=== PATIENT | male | born 1945 | race Caucasian/White ===

== ENCOUNTER → 2018-01-23 06:36 | Outpatient (CLI) | payer MEDICARE, OTHER, SELFPAY ==
--- NOTE | 2018-01-23 | DI.MRI.S_ITS ---
PROCEDURE: MR SHOULDER LT WO CON INDICATIONS: COMPLETE TEAR OF LEFT ROTATOR CUFF TECHNIQUE: Noncontrast oblique coronal T2 fast spin echo with fat saturation, oblique sagittal T1 spin echo and T2 fast spin echo with fat saturation, axial T1 spin echo and T2 fast spin echo with fat saturation through the shoulder. COMPARISON: [facility], , SHOULDER MINIMUM 2 VIEW LEFT, 08/21/2017, 11:57. FINDINGS: Image quality: Excellent. Rotator cuff: Rotator cuff tendon repair has been performed. There is full thickness tear of the mid supraspinatus tendon at the humeral insertion site extending to the musculotendinous junction, measuring 14 mm anteroposterior. Mild T2 signal lesion within the anterior infraspinatus and posterior supraspinatus and humeral insertion site, indicating tendinopathy. Low-grade intrasubstance fluid signal intensity within the infraspinatus tendon at the musculotendinous junction anterior and mid portions, indicating low-grade partial-thickness tearing. Small region of fluid signal intensity within the mid subscapularis tendon at the humeral insertion site. Sagittal images demonstrate mild supraspinatus muscle atrophy. Bones and bursae: No bone marrow contusions or fractures. Moderate acromioclavicular joint degeneration. The acromion demonstrates conventional anatomy, without an os acromiale. A small amount of subacromial-subdeltoid or subcoracoid bursal fluid is present. Capsule and soft tissues: Ill-defined linear high T2 signal intensity traverses the superior and posterior superior labrum. There is a small para labral cyst present posterior superiorly. The long head of the biceps tendon demonstrates normal location and morphology. The rotator interval appears normal, without fibrosis. The coracohumeral ligament is normal in thickness. IMPRESSION: 1. Full S. tearing of the mid supraspinatus tendon as described above with mild associated atrophy. 2. Low-grade partial-thickness tearing of the infraspinatus and subscapularis tendons. 3. Acromioclavicular joint osteoarthritis. 4. Subacromial bursitis. 5. Posterior superior glenoid labral tearing. Dictated by: Krzysztof Harris M.D. on 01/23/2018 at 8:33 Approved by: Krzysztof Harris M.D. on 01/23/2018 at 8:39
== END ==
PROVIDERS: Family Provider Family Medicine; PCP Family Medicine; Visit Provider Orthopaedic Surgery
DX: M75.122 Complete rotator cuff tear or rupture of left shoulder, not specified as traumatic (principal); M19.012 Primary osteoarthritis, left shoulder; M75.52 Bursitis of left shoulder; S43.432A Superior glenoid labrum lesion of left shoulder, initial encounter
CPT/HCPCS: 73221

== ENCOUNTER 2018-08-21 10:30 | Outpatient (RCR) | payer MEDICARE, OTHER, SELFPAY ==
--- NOTE | 2018-05-15 15:25 | PT.OIE ---
Current Diagnoses Impingement syndrome of left shoulder (05/15/18) Other intraoperative and postprocedural complications and disorders of the musculoskeletal system (05/15/18) Other symptoms and signs involving the musculoskeletal system (05/15/18) Weakness (05/15/18) Other reduced mobility (05/15/18) Past Medical History (Last Updated 05/15/18 @ 14:21 by Nichole Ward, PT) Rotator cuff tear, left (Acute) Provider Visit Care Team Role Provider Type Patrick Dover MD Family Provider Physician Primary Care Provider Specialty: Family Practice Address: [facility] [place], [address] Email: [email or web address] [email or web address] [email or web address] Attending Provider Physician Specialty: Orthopedic Surgery Address: [address] [place] [address], [id number] Email: [email or web address] Physical Therapy Initial Evaluation PT-OP-A Visit Information Start: 05/14/18 16:14 Freq: Status: Active Protocol: Document 05/15/18 12:47 LRN (Rec: 05/15/18 13:30 LRN [id number]) Out-Patient Physical Therapy Visit Information Visit Information Visit Type Initial Evaluation Visit Start Time 12:47 Visit Stop Time 13:39 Total Visit Minutes 52 Visit Number 07/12 Number of DIMENSIONAL INTEGRATION ENGINEER Visits 0 Evaluation Information Evaluation Date 05/15/18 PT-OP-B Current Condition Start: 05/14/18 16:14 Freq: Status: Active Protocol: Document 05/15/18 12:47 LRN (Rec: 05/15/18 13:30 LRN [id number]) Current Condition History of Current Condition Onset Date 04/26/2018 Current Complaints No significant pain, occasional with pendulum ex. History of Current Condition Pt is 2 days short of being 3 weeks status post L shoulder, arthroscopic rotator cuff repair of a full tear. The pt reports after his in office surgery he was released home the same day. He has been doing Pendulum exercises as instructed 2 times per day. He states the first few days were the worst, but now he is having very little pain. His primary pain when present is in the posterior aspect of the upper back. He indicates his pain is in the left intrascapular region. Prior Treatments and Tests None Future Testing and Treatments Planned Follow up doctor visit Jun 08, 2018. Treatment Goals Patient/Caregiver Goals Pt goal is to regain use of L arm for functional activities (dressing, cooking, driving). Return to gym activites. Prior Functional Status Baseline Function- ADL's Independent Baseline Function- Mobility Independent Baseline Function- Recreation/Hobbies Gym workouts. Current Functional Impairments (Reported) Functional Limitations- ADL's Dressing, cooking, driving, clean up. Functional Limitations- Work/School Not able to work for [employer]. Functional Limitations- Recreation/ Not able to perform gym Hobbies workouts, carpentry (nailing). Personal Factors Other Personal Factors That May Effect Pt wanting to go to [place] the Therapy/Recovery first july. PT-OP-C Subjective Start: 05/14/18 16:14 Freq: Status: Active Protocol: Document 05/15/18 12:47 LRN (Rec: 05/15/18 14:50 LRN [id number]) Patient Questionnaires Quick Dash- Upper Extremity Quick Dash UE Score 38 Quick Dash UE Impairment 20 to 39% Impaired (Score 20- 39) OP-PT Pain Assessment Pain Assessment Grid Paper Pain Assessment Grid Completed Yes Location Left Upper Posterior Back Pain Location Details Supraspinatus, Rhomboids Intensity 3 Scale Used Numeric (1 - 10) Frequency Intermittent Left Upper Shoulder Pain Location Details Subacromial Intensity 3 Scale Used Numeric (1 - 10) Frequency Intermittent Pain Aggravating Factors Changing Position Comments Pain Comments Pain with palpation and after ROM exercise. PT-OP-E Functional Tests Start: 05/14/18 16:14 Freq: Status: Active Protocol: Document 05/15/18 12:47 LRN (Rec: 05/15/18 14:50 LRN [id number]) Functional Tests Martey's Scratch Test Action 1: The subject is instructed to touch the opposite shoulder with his/her hand. This motion checks Glenohumeral adduction, internal rotation , horizontal adduction and scapular protraction Action 2: The subject is instructed to place his/her arm overhead and reach behind the neck to touch his/her upper back. This motion checks Glenohumeral abduction, external rotation and scapular upward rotation and elevation. Action 3: The subject puts his/her hand on the lower back and reaches upward as far as possible. This motion checks glenohumeral adduction, internal rotation and scapular retraction with downward rotation Action 1- Right Opposite shoulder Action 2- Right T4 Action 3- Right T10 PT-OP-F Manual Assessment Start: 05/14/18 16:14 Freq: Status: Active Protocol: Document 05/15/18 12:47 LRN (Rec: 05/15/18 14:50 LRN [id number]) Manual Assessments Other Manual Assessments Other Manual Assessments Increased muscle tone of L Upper Trapezius, Supraspinatus , & Rhomboids. PT-OP-H Neuro Start: 05/14/18 16:14 Freq: Status: Active Protocol: Document 05/15/18 12:47 LRN (Rec: 05/15/18 14:50 LRN [id number]) Sensation Evaluation Gross Sensation Gross Sensation WNL PT-OP-J Posture/Palpation/Skin Start: 05/14/18 16:14 Freq: Status: Active Protocol: Document 05/15/18 12:47 LRN (Rec: 05/15/18 14:50 LRN [id number]) Posture Evaluation Comments Posture Comments Standing: Head is level, neck is shifted left, L shoulder is low and retracted, scapula is downwardly rotated and bound to the rib cage, Skin Assessment Incisional Assessment Incision Appearance/Comments Well healed and good mobility. PT-OP-K Range of Motion Start: 05/14/18 16:14 Freq: Status: Active Protocol: Document 05/15/18 12:47 LRN (Rec: 05/15/18 14:50 LRN [id number]) Cervical Spine Range of Motion Cervical Spine Active Degrees Testing Position Sitting Extension 54 Rotation Left 60 Rotation Right 54 Lateral Flexion Left 25 Lateral Flexion Right 15 ROM Limitations Bony Restriction Comments Limited rotation limited due to L neck pain; sidebend limited due to R neck pain. Shoulder Goniometric Range of Motion Shoulder Measured in Degrees Left Passive Shoulder ROM WFL No Testing Position Supine Flexion 129 External Rotation at 0 degrees Abduction 30 Right Active Testing Position Supine Flexion 157 Abduction 180 External Rotation at 0 degrees Abduction 85 Elbow/Forearm Range of Motion Elbow/Forearm Measured in Degrees Left Active Elbow/Forearm ROM WFL No ROM Testing Position Sitting Elbow Flexion (degrees) 127 Right Active ROM Testing Position Sitting Elbow Flexion (degrees) 150 PT-OP-M Strength Start: 05/14/18 16:14 Freq: Status: Active Protocol: Document 05/15/18 12:47 LRN (Rec: 05/15/18 14:50 LRN [id number]) Shoulder Strength Shoulder Manual Muscle Testing Left Comments Deferred testing due to s/p surgery restrictions of PROM. Right Reason Not Measured WFL Comments Generally 5/5. PT-OP-Q Treatments Start: 05/14/18 16:14 Freq: Status: Active Protocol: Document 05/15/18 12:47 LRN (Rec: 05/15/18 14:50 LRN [id number]) Therapeutic Exercises Supine Exercises Shoulder ER Supine Exercise Name Passive ER stretch with arm in 0 deg's AB Side left Reps/Minutes 4' Comments Hold 10 sec's Shoulder Flex Supine Exercise Name Passive Flexion stretch Side left Reps/Minutes 4' Elbow flex Supine Exercise Name L elbow AROM Side left Reps/Minutes 10x Comments Guiding hand movement in the frontal plane. Self-Care/Home Management Treatment Education Patient Education Home Exercise Program Other Education I/S pt in active elbow flex exercise to be added to HEP. Pt to continue Pendulum ex and with spouse assist, he was allowed to do passive Shoulder ER stretch. I/S pt to have spouse come next visit for training on PROM exercises. PT-OP-R Modalities Start: 05/14/18 16:14 Freq: Status: Active Protocol: Document 05/15/18 12:47 LRN (Rec: 05/15/18 14:50 LRN [id number]) Hot Pack/Cold Pack Treatment Cold Pack Location L shoulder Patient Position Hooklying Treatment Duration (minutes) 10 Comments Extra padding due to pt without shirt on. PT-OP-T Assessment and Plan Start: 05/14/18 16:14 Freq: Status: Active Protocol: Document 05/15/18 12:47 LRN (Rec: 05/15/18 13:30 LRN [id number]) Physical Therapy Assessment Rehab Potential Rehabilitation Potential Excellent Evaluation Complexity Number of Personal Factors/Comorbidities 0 Number of Body Systems Impaired 4 or More Clinical Presentation at Evaluation Evolving Impairments Impairments Functional Activities Functional Mobility Pain ROM Soft Tissue Mobility Strength Tone Other Concerns Age Related Concerns 70+ years old. Goals Three Impairment Decreased strength L shoulder, limited to AROM until 08/17/18 . Snf Goal (LTG) Pt will be able to lift light objects to assist with cooking , and will be able to drive without pain. LTG Duration 08/17/18 Two Impairment Decreased functional mobility of L shoulder Softball Player Goal (LTG) Pt will be able to dress without assist LTG Duration 06/21/18 One Impairment Lacks appropriate HEP Snf Goal (LTG) Pt will be independent in self care HEP. LTG Duration 07/20/2018 Assessment Summary Assessment Pt is s/p arthroscopic L shoulder rotator cuff repair on 04/26/2018. He is 2 weeks and 5 days s/p surgery. He is having very little pain with his arm in a sling and doing pendulum ex's 2x/day. The pt is following directions for home care as instructed; therefore appears very compliant. He is limited with shoulder mobility due to pain as expected. He has minimal scar tissue mobility restrictions. It is expected the pt will do well with skilled physical therapy as we follow the protocol for his L shoulder rehabilitation as given. In 6 weeks the pt will be towards the end of Phase II in his rehabilitation; therefore therapy may extend to 10 weeks for the pt to achieve return of functional ability per patient goal. Physical Therapy Plan Frequency and Duration Frequency of Treatment 2x/Week Plan of Care Start Date 05/15/18 Plan of Care End Date 08/17/18 Therapeutic Interventions Therapeutic Interventions Aquatic Therapy Home Exercise Program Manual Therapy Neuromuscular Re-education Patient/Caregiver Education Self-Care/Home Management Soft Tissue Mobilization Taping Therapeutic Exercises Modalities Cold Pack/Ice Massage Electric Stimulation Hot Packs Ultrasound Next Visit Focus/Plan Next Note Type Treatment Note Next Visit Plan Educate spouse in assisting the pt in PROM for L shoulder ER and flexion for his HEP. Continue with PROM for L shoulder (out of sling) flex and ER, and begin passive IR stretch, elbow ROM and strengthening and scapular stabilization ex's with caution of protecting Supraspinatus. STM as needed and end with cryotherapy (IFES if needed) for pain management. Upright position with ex's by 07/13/18 to begin strengthening against gravity. Weight training starting per protocol.
--- NOTE | 2018-05-15 15:25 | PT.OPPOC ---
Current Diagnoses Impingement syndrome of left shoulder (05/15/18) Other intraoperative and postprocedural complications and disorders of the musculoskeletal system (05/15/18) Other symptoms and signs involving the musculoskeletal system (05/15/18) Weakness (05/15/18) Other reduced mobility (05/15/18) Provider Visit Care Team Role Provider Type Patrick Dover MD Family Provider Physician Primary Care Provider Specialty: Family Practice Address: [facility] [place], [address] Email: [email or web address] Attending Provider Physician Specialty: Orthopedic Surgery Address: [address] [place] [address], [address] Email: [email or web address] Plan Of Care PT-OP-T Assessment and Plan Start: 05/14/18 16:14 Freq: Status: Active Protocol: Document 05/15/18 12:47 LRN (Rec: 05/15/18 13:30 LRN [id number]) Physical Therapy Assessment Rehab Potential Rehabilitation Potential Excellent Evaluation Complexity Number of Personal Factors/Comorbidities 0 Number of Body Systems Impaired 4 or More Clinical Presentation at Evaluation Evolving Impairments Impairments Functional Activities Functional Mobility Pain ROM Soft Tissue Mobility Strength Tone Other Concerns Age Related Concerns 70+ years old. Goals Three Impairment Decreased strength L shoulder, limited to AROM until 08/17/18 . Halfway Goal (LTG) Pt will be able to lift light objects to assist with cooking , and will be able to drive without pain. LTG Duration 08/17/18 Two Impairment Decreased functional mobility of L shoulder Halfway Goal (LTG) Pt will be able to dress without assist LTG Duration 06/21/18 One Impairment Lacks appropriate HEP Handle Turner Goal (LTG) Pt will be independent in self care HEP. LTG Duration 07/20/2018 Assessment Summary Assessment Pt is s/p arthroscopic L shoulder rotator cuff repair on 04/26/2018. He is 2 weeks and 5 days s/p surgery. He is having very little pain with his arm in a sling and doing pendulum ex's 2x/day. The pt is following directions for home care as instructed; therefore appears very compliant. He is limited with shoulder mobility due to pain as expected. He has minimal scar tissue mobility restrictions. It is expected the pt will do well with skilled physical therapy as we follow the protocol for his L shoulder rehabilitation as given. In 6 weeks the pt will be towards the end of Phase II in his rehabilitation; therefore therapy may extend to 10 weeks for the pt to achieve return of functional ability per patient goal. Physical Therapy Plan Frequency and Duration Frequency of Treatment 2x/Week Plan of Care Start Date 05/15/18 Plan of Care End Date 08/17/18 Therapeutic Interventions Therapeutic Interventions Aquatic Therapy Home Exercise Program Manual Therapy Neuromuscular Re-education Patient/Caregiver Education Self-Care/Home Management Soft Tissue Mobilization Taping Therapeutic Exercises Modalities Cold Pack/Ice Massage Electric Stimulation Hot Packs Ultrasound Next Visit Focus/Plan Next Note Type Treatment Note Next Visit Plan Educate spouse in assisting the pt in PROM for L shoulder ER and flexion for his HEP. Continue with PROM for L shoulder (out of sling) flex and ER, and begin passive IR stretch, elbow ROM and strengthening and scapular stabilization ex's with caution of protecting Supraspinatus. STM as needed and end with cryotherapy (IFES if needed) for pain management. Upright position with ex's by 07/13/18 to begin strengthening against gravity. Weight training starting per protocol. Plan of Care Dates Plan of Care Start Date 05/15/18 Plan of Care End Date 08/17/18 Please Sign and Return: I have reviewed this Plan of Care and certify that the skilled therapy services above are required to meet the patient?s needs. Physician Signature Date Printed Name and Credentials Clinical Instructor Signature Printed Name and Credentials
--- NOTE | 2018-05-18 14:56 | PT.OTN ---
Current Diagnoses Impingement syndrome of left shoulder (05/18/18) Other intraoperative and postprocedural complications and disorders of the musculoskeletal system (05/18/18) Physical Therapy Treatment Note PT-OP-A Visit Information Start: 05/14/18 16:14 Freq: Status: Active Protocol: Document 05/18/18 12:47 LRN (Rec: 05/18/18 13:32 LRN [id number]) Out-Patient Physical Therapy Visit Information Visit Information Visit Type Treatment Note Visit Start Time 12:47 Visit Stop Time 13:44 Total Visit Minutes 53 Visit Number 2/10 Number of PATIENT CARE SECRETARY Visits 0 Evaluation Information Evaluation Date 05/15/18 PT-OP-B Current Condition Start: 05/14/18 16:14 Freq: Status: Active Protocol: Document 05/15/18 12:47 LRN (Rec: 05/15/18 13:30 LRN [id number]) Current Condition History of Current Condition Onset Date 04/26/2018 Current Complaints No significant pain, occasional with pendulum ex. History of Current Condition Pt is 2 days short of being 3 weeks status post L shoulder, arthroscopic rotator cuff repair of a full tear. The pt reports after his in office surgery he was released home the same day. He has been doing Pendulum exercises as instructed 2 times per day. He states the first few days were the worst, but now he is having very little pain. His primary pain when present is in the posterior aspect of the upper back. He indicates his pain is in the left intrascapular region. Prior Treatments and Tests None Future Testing and Treatments Planned Follow up doctor visit Jun 08, 2018. Treatment Goals Patient/Caregiver Goals Pt goal is to regain use of L arm for functional activities (dressing, cooking, driving). Return to gym activites. Prior Functional Status Baseline Function- ADL's Independent Baseline Function- Mobility Independent Baseline Function- Recreation/Hobbies Gym workouts. Current Functional Impairments (Reported) Functional Limitations- ADL's Dressing, cooking, driving, clean up. Functional Limitations- Work/School Not able to work for [employer]. Functional Limitations- Recreation/ Not able to perform gym Hobbies workouts, carpentry (nailing). Personal Factors Other Personal Factors That May Effect Pt wanting to go to [place] the Therapy/Recovery first july. PT-OP-C Subjective Start: 05/14/18 16:14 Freq: Status: Active Protocol: Document 05/18/18 12:47 LRN (Rec: 05/18/18 13:32 LRN [id number]) OP-PT Subjective Patient Comments Patient Comments R shoulder feels good. PT-OP-E Functional Tests Start: 05/14/18 16:14 Freq: Status: Active Protocol: Document 05/15/18 12:47 LRN (Rec: 05/15/18 14:50 LRN [id number]) Functional Tests Apley's Scratch Test Action 1: The subject is instructed to touch the opposite shoulder with his/her hand. This motion checks Glenohumeral adduction, internal rotation , horizontal adduction and scapular protraction Action 2: The subject is instructed to place his/her arm overhead and reach behind the neck to touch his/her upper back. This motion checks Glenohumeral abduction, external rotation and scapular upward rotation and elevation. Action 3: The subject puts his/her hand on the lower back and reaches upward as far as possible. This motion checks glenohumeral adduction, internal rotation and scapular retraction with downward rotation Action 1- Right Opposite shoulder Action 2- Right T4 Action 3- Right T10 PT-OP-F Manual Assessment Start: 05/14/18 16:14 Freq: Status: Active Protocol: Document 05/15/18 12:47 LRN (Rec: 05/15/18 14:50 LRN [id number]) Manual Assessments Other Manual Assessments Other Manual Assessments Increased muscle tone of L Upper Trapezius, Supraspinatus , & Rhomboids. PT-OP-H Neuro Start: 05/14/18 16:14 Freq: Status: Active Protocol: Document 05/15/18 12:47 LRN (Rec: 05/15/18 14:50 LRN [id number]) Sensation Evaluation Gross Sensation Gross Sensation WNL PT-OP-J Posture/Palpation/Skin Start: 05/14/18 16:14 Freq: Status: Active Protocol: Document 05/15/18 12:47 LRN (Rec: 05/15/18 14:50 LRN [id number]) Posture Evaluation Comments Posture Comments Standing: Head is level, neck is shifted left, L shoulder is low and retracted, scapula is downwardly rotated and bound to the rib cage, Skin Assessment Incisional Assessment Incision Appearance/Comments Well healed and good mobility. PT-OP-K Range of Motion Start: 05/14/18 16:14 Freq: Status: Active Protocol: Document 05/18/18 12:47 LRN (Rec: 05/18/18 14:44 LRN [id number]) Shoulder Goniometric Range of Motion Shoulder Measured in Degrees Left Passive Testing Position Supine Flexion 95 External Rotation at 0 degrees Abduction 33 PT-OP-M Strength Start: 05/14/18 16:14 Freq: Status: Active Protocol: Document 05/15/18 12:47 LRN (Rec: 05/15/18 14:50 LRN [id number]) Shoulder Strength Shoulder Manual Muscle Testing Left Comments Deferred testing due to s/p surgery restrictions of PROM. Right Reason Not Measured WFL Comments Generally 5/5. PT-OP-Q Treatments Start: 05/14/18 16:14 Freq: Status: Active Protocol: Document 05/18/18 12:47 LRN (Rec: 05/18/18 13:32 LRN [id number]) Therapeutic Exercises Supine Exercises Scapular Pinch Side bilateral Reps/Minutes 10x Elbow ext Supine Exercise Name AROM ext Side left Reps/Minutes 10x Shoulder ER Supine Exercise Name Passive ER stretch with arm in 0 deg's AB Side left Reps/Minutes 5' Comments Hold 10 sec's Shoulder Flex Supine Exercise Name Passive Flexion stretch Side left Reps/Minutes 5' Elbow flex Supine Exercise Name L elbow AROM Side left Reps/Minutes 10x Comments Guiding hand movement in the frontal plane. Standing Exercises Pendulum Side right Reps/Minutes 30x PT-OP-R Modalities Start: 05/14/18 16:14 Freq: Status: Active Protocol: Document 05/18/18 12:47 LRN (Rec: 05/15/18 14:50 LRN [id number]) Hot Pack/Cold Pack Treatment Cold Pack Location L shoulder Patient Position Hooklying Treatment Duration (minutes) 10 Comments Extra padding due to pt without shirt on. PT-OP-T Assessment and Plan Start: 05/14/18 16:14 Freq: Status: Active Protocol: Document 05/18/18 12:47 LRN (Rec: 05/18/18 13:32 LRN [id number]) Physical Therapy Assessment Assessment Summary Assessment Pt is almost 3 wks s/p RCR. Today the spouse appears to have a good understanding of how to assist pt with PROM ex' s at home. He has improved his ER slightly, but flex is decreased. Pt was initially performing his pendulum ex's actively, but now appears to have a better understanding of PROM with ex's. Physical Therapy Plan Next Visit Focus/Plan Next Note Type Treatment Note Next Visit Plan Continue with PROM for L shoulder (out of sling) flex and ER, and begin passive IR stretch, elbow ROM and strengthening and scapular stabilization ex's with caution of protecting Supraspinatus. STM as needed and end with cryotherapy (IFES if needed) for pain management. Upright position with ex's by 07/13/18 to begin strengthening against gravity. Weight training starting per protocol.
--- NOTE | 2018-05-22 13:34 | PT.OTN ---
Current Diagnoses Impingement syndrome of left shoulder (05/22/18) Other intraoperative and postprocedural complications and disorders of the musculoskeletal system (05/22/18) Physical Therapy Treatment Note PT-OP-A Visit Information Start: 05/14/18 16:14 Freq: Status: Active Protocol: Document 05/22/18 12:45 LRN (Rec: 05/22/18 13:34 LRN [id number]) Out-Patient Physical Therapy Visit Information Visit Information Visit Type Treatment Note Visit Start Time 12:45 Visit Stop Time 13:35 Total Visit Minutes 50 Visit Number 2/10 Number of TRANSFORMATION SPECIALIST Visits 0 Evaluation Information Evaluation Date 05/15/18 PT-OP-B Current Condition Start: 05/14/18 16:14 Freq: Status: Active Protocol: Document 05/15/18 12:47 LRN (Rec: 05/15/18 13:30 LRN [id number]) Current Condition History of Current Condition Onset Date 04/26/2018 Current Complaints No significant pain, occasional with pendulum ex. History of Current Condition Pt is 2 days short of being 3 weeks status post L shoulder, arthroscopic rotator cuff repair of a full tear. The pt reports after his in office surgery he was released home the same day. He has been doing Pendulum exercises as instructed 2 times per day. He states the first few days were the worst, but now he is having very little pain. His primary pain when present is in the posterior aspect of the upper back. He indicates his pain is in the left intrascapular region. Prior Treatments and Tests None Future Testing and Treatments Planned Follow up doctor visit Jun 08, 2018. Treatment Goals Patient/Caregiver Goals Pt goal is to regain use of L arm for functional activities (dressing, cooking, driving). Return to gym activites. Prior Functional Status Baseline Function- ADL's Independent Baseline Function- Mobility Independent Baseline Function- Recreation/Hobbies Gym workouts. Current Functional Impairments (Reported) Functional Limitations- ADL's Dressing, cooking, driving, clean up. Functional Limitations- Work/School Not able to work for [employer]. Functional Limitations- Recreation/ Not able to perform gym Hobbies workouts, carpentry (nailing). Personal Factors Other Personal Factors That May Effect Pt wanting to go to [place] the Therapy/Recovery first july. PT-OP-C Subjective Start: 05/14/18 16:14 Freq: Status: Active Protocol: Document 05/22/18 12:45 LRN (Rec: 05/22/18 13:34 LRN [id number]) OP-PT Subjective Patient Comments Patient Comments See again 06/04/18. A little sore today so did not do ex's. seems to know what she's doing. States everything is going well. PT-OP-E Functional Tests Start: 05/14/18 16:14 Freq: Status: Active Protocol: Document 05/15/18 12:47 LRN (Rec: 05/15/18 14:50 LRN [id number]) Functional Tests Apley's Scratch Test Action 1: The subject is instructed to touch the opposite shoulder with his/her hand. This motion checks Glenohumeral adduction, internal rotation , horizontal adduction and scapular protraction Action 2: The subject is instructed to place his/her arm overhead and reach behind the neck to touch his/her upper back. This motion checks Glenohumeral abduction, external rotation and scapular upward rotation and elevation. Action 3: The subject puts his/her hand on the lower back and reaches upward as far as possible. This motion checks glenohumeral adduction, internal rotation and scapular retraction with downward rotation Action 1- Right Opposite shoulder Action 2- Right T4 Action 3- Right T10 PT-OP-F Manual Assessment Start: 05/14/18 16:14 Freq: Status: Active Protocol: Document 05/15/18 12:47 LRN (Rec: 05/15/18 14:50 LRN [id number]) Manual Assessments Other Manual Assessments Other Manual Assessments Increased muscle tone of L Upper Trapezius, Supraspinatus , & Rhomboids. PT-OP-H Neuro Start: 05/14/18 16:14 Freq: Status: Active Protocol: Document 05/15/18 12:47 LRN (Rec: 05/15/18 14:50 LRN [id number]) Sensation Evaluation Gross Sensation Gross Sensation WNL PT-OP-J Posture/Palpation/Skin Start: 05/14/18 16:14 Freq: Status: Active Protocol: Document 05/15/18 12:47 LRN (Rec: 05/15/18 14:50 LRN [id number]) Posture Evaluation Comments Posture Comments Standing: Head is level, neck is shifted left, L shoulder is low and retracted, scapula is downwardly rotated and bound to the rib cage, Skin Assessment Incisional Assessment Incision Appearance/Comments Well healed and good mobility. PT-OP-K Range of Motion Start: 05/14/18 16:14 Freq: Status: Active Protocol: Document 05/18/18 12:47 LRN (Rec: 05/18/18 14:44 LRN [id number]) Shoulder Goniometric Range of Motion Shoulder Measured in Degrees Left Passive Testing Position Supine Flexion 95 External Rotation at 0 degrees Abduction 33 PT-OP-M Strength Start: 05/14/18 16:14 Freq: Status: Active Protocol: Document 05/15/18 12:47 LRN (Rec: 05/15/18 14:50 LRN [id number]) Shoulder Strength Shoulder Manual Muscle Testing Left Comments Deferred testing due to s/p surgery restrictions of PROM. Right Reason Not Measured WFL Comments Generally 5/5. PT-OP-Q Treatments Start: 05/14/18 16:14 Freq: Status: Active Protocol: Document 05/22/18 12:45 LRN (Rec: 05/22/18 13:34 LRN [id number]) Therapeutic Exercises Supine Exercises Scapular Pinch Side bilateral Reps/Minutes 30x Elbow ext Supine Exercise Name AROM ext Side left Reps/Minutes 30x Shoulder ER Supine Exercise Name Passive ER stretch with arm in 0 deg's AB Side left Reps/Minutes 5' Comments Hold 10 sec's Shoulder Flex Supine Exercise Name Passive Flexion stretch Side left Reps/Minutes 5' Elbow flex Supine Exercise Name L elbow AROM Side left Resistance 2 Reps/Minutes 30 Comments Guiding hand movement in the frontal plane. Sitting Exercises Forearm Sitting Exercise Name Supination/Pronation Resistance 1# Reps/Minutes 20x Standing Exercises Shoulder IR stretch Standing Exercise Name Passive Side left Equipment Used Towel Comments Long hold Pendulum Standing Exercise Name Flex, Circles CW/CCW Side right Reps/Minutes 30x Manual Therapy Treatment Soft Tissue Mobilization L Infraspinatus Body Location L Infraspinatus Mobilization Type Strumming Sustained Pressure Body Position Sitting L UT Body Location L neck/UT Mobilization Type Strumming Sustained Pressure Body Position Sitting PT-OP-R Modalities Start: 05/14/18 16:14 Freq: Status: Active Protocol: Document 05/22/18 12:45 LRN (Rec: 05/22/18 13:34 LRN [id number]) Hot Pack/Cold Pack Treatment Cold Pack Location L shoulder Patient Position Hooklying Treatment Duration (minutes) 10 Comments Extra padding due to pt without shirt on. PT-OP-T Assessment and Plan Start: 05/14/18 16:14 Freq: Status: Active Protocol: Document 05/22/18 12:45 LRN (Rec: 05/22/18 13:34 LRN [id number]) Physical Therapy Assessment Assessment Summary Assessment Pt ~4 weeks s/p RCR. Progressing well with his HEP and spouse assist. L shoulder PROM: Flex is 110 deg's, ER is 35 deg's. Physical Therapy Plan Next Visit Focus/Plan Next Note Type Treatment Note Next Visit Plan Continue with PROM for L shoulder (out of sling) flex and ER, and begin passive IR stretch, elbow ROM and strengthening and scapular stabilization ex's with caution of protecting Supraspinatus. STM as needed and end with cryotherapy (IFES if needed) for pain management. Upright position with ex's by 07/13/18 to begin strengthening against gravity. Weight training starting per protocol.
--- NOTE | 2018-05-29 13:48 | PT.OTN ---
Current Diagnoses Impingement syndrome of left shoulder (05/29/18) Other intraoperative and postprocedural complications and disorders of the musculoskeletal system (05/29/18) Physical Therapy Treatment Note PT-OP-A Visit Information Start: 05/14/18 16:14 Freq: Status: Active Protocol: Document 05/29/18 12:47 LRN (Rec: 05/29/18 13:27 LRN [id number]) Out-Patient Physical Therapy Visit Information Visit Information Visit Type Treatment Note Visit Start Time 12:47 Visit Stop Time 13:43 Total Visit Minutes 56 Visit Number 4/10 Number of STONE OPERATOR Visits 0 Evaluation Information Evaluation Date 05/15/18 PT-OP-B Current Condition Start: 05/14/18 16:14 Freq: Status: Active Protocol: Document 05/15/18 12:47 LRN (Rec: 05/15/18 13:30 LRN [id number]) Current Condition History of Current Condition Onset Date 04/26/2018 Current Complaints No significant pain, occasional with pendulum ex. History of Current Condition Pt is 2 days short of being 3 weeks status post L shoulder, arthroscopic rotator cuff repair of a full tear. The pt reports after his in office surgery he was released home the same day. He has been doing Pendulum exercises as instructed 2 times per day. He states the first few days were the worst, but now he is having very little pain. His primary pain when present is in the posterior aspect of the upper back. He indicates his pain is in the left intrascapular region. Prior Treatments and Tests None Future Testing and Treatments Planned Follow up doctor visit Jun 08, 2018. Treatment Goals Patient/Caregiver Goals Pt goal is to regain use of L arm for functional activities (dressing, cooking, driving). Return to gym activites. Prior Functional Status Baseline Function- ADL's Independent Baseline Function- Mobility Independent Baseline Function- Recreation/Hobbies Gym workouts. Current Functional Impairments (Reported) Functional Limitations- ADL's Dressing, cooking, driving, clean up. Functional Limitations- Work/School Not able to work for [employer]. Functional Limitations- Recreation/ Not able to perform gym Hobbies workouts, carpentry (nailing). Personal Factors Other Personal Factors That May Effect Pt wanting to go to [place] the Therapy/Recovery first july. PT-OP-C Subjective Start: 05/14/18 16:14 Freq: Status: Active Protocol: Document 05/29/18 12:47 LRN (Rec: 05/29/18 13:27 LRN [id number]) OP-PT Subjective Patient Comments Patient Comments All is good. PT-OP-E Functional Tests Start: 05/14/18 16:14 Freq: Status: Active Protocol: Document 05/15/18 12:47 LRN (Rec: 05/15/18 14:50 LRN [id number]) Functional Tests Apley's Scratch Test Action 1: The subject is instructed to touch the opposite shoulder with his/her hand. This motion checks Glenohumeral adduction, internal rotation , horizontal adduction and scapular protraction Action 2: The subject is instructed to place his/her arm overhead and reach behind the neck to touch his/her upper back. This motion checks Glenohumeral abduction, external rotation and scapular upward rotation and elevation. Action 3: The subject puts his/her hand on the lower back and reaches upward as far as possible. This motion checks glenohumeral adduction, internal rotation and scapular retraction with downward rotation Action 1- Right Opposite shoulder Action 2- Right T4 Action 3- Right T10 PT-OP-F Manual Assessment Start: 05/14/18 16:14 Freq: Status: Active Protocol: Document 05/15/18 12:47 LRN (Rec: 05/15/18 14:50 LRN [id number]) Manual Assessments Other Manual Assessments Other Manual Assessments Increased muscle tone of L Upper Trapezius, Supraspinatus , & Rhomboids. PT-OP-H Neuro Start: 05/14/18 16:14 Freq: Status: Active Protocol: Document 05/15/18 12:47 LRN (Rec: 05/15/18 14:50 LRN [id number]) Sensation Evaluation Gross Sensation Gross Sensation WNL PT-OP-J Posture/Palpation/Skin Start: 05/14/18 16:14 Freq: Status: Active Protocol: Document 05/15/18 12:47 LRN (Rec: 05/15/18 14:50 LRN [id number]) Posture Evaluation Comments Posture Comments Standing: Head is level, neck is shifted left, L shoulder is low and retracted, scapula is downwardly rotated and bound to the rib cage, Skin Assessment Incisional Assessment Incision Appearance/Comments Well healed and good mobility. PT-OP-K Range of Motion Start: 05/14/18 16:14 Freq: Status: Active Protocol: Document 05/29/18 12:47 LRN (Rec: 05/29/18 13:27 LRN [id number]) Shoulder Goniometric Range of Motion Shoulder Measured in Degrees Left Passive Testing Position Supine Flexion 125 External Rotation at 0 degrees Abduction 40 Elbow/Forearm Range of Motion Elbow/Forearm Measured in Degrees Left Active Elbow/Forearm ROM WFL Yes ROM Testing Position Supine PT-OP-M Strength Start: 05/14/18 16:14 Freq: Status: Active Protocol: Document 05/15/18 12:47 LRN (Rec: 05/15/18 14:50 LRN [id number]) Shoulder Strength Shoulder Manual Muscle Testing Left Comments Deferred testing due to s/p surgery restrictions of PROM. Right Reason Not Measured WFL Comments Generally 5/5. PT-OP-Q Treatments Start: 05/14/18 16:14 Freq: Status: Active Protocol: Document 05/29/18 12:47 LRN (Rec: 05/29/18 13:27 LRN [id number]) Therapeutic Exercises Supine Exercises Forearm Sup/Pron Side left Resistance 0#, 2# Reps/Minutes 15x each Scapular Pinch Side bilateral Reps/Minutes 30x Elbow ext Supine Exercise Name AROM ext Side left Resistance 0, 3# Reps/Minutes 30x, 10x respectively Comments Stopped with weight due to pt feeling like the elbow would pop Shoulder ER Supine Exercise Name Passive ER stretch with arm in 0 deg's AB Side left Reps/Minutes 5' Comments Hold 10 sec's Shoulder Flex Supine Exercise Name Passive Flexion stretch Side left Reps/Minutes 5' Elbow flex Supine Exercise Name L elbow AROM Side left Resistance 2# Reps/Minutes 30 Standing Exercises UT strengthening Standing Exercise Name Shrugs and rolls Side left Reps/Minutes Using mirror for visual feedback Intrascapular strengthening Standing Exercise Name Scapular pinches Side bilateral Reps/Minutes 30x Shoulder IR stretch Standing Exercise Name Passive Side left Equipment Used Towel Comments Long hold Pendulum Standing Exercise Name Flex, Circles CW/CCW Side right Reps/Minutes 30x Self-Care/Home Management Treatment Education Patient Education Home Exercise Program Other Education I/S pt in L shoulder shrug & circles, alternating movements . PT-OP-R Modalities Start: 05/14/18 16:14 Freq: Status: Active Protocol: Document 05/29/18 12:47 LRN (Rec: 05/29/18 13:27 LRN [id number]) Hot Pack/Cold Pack Treatment Cold Pack Location L shoulder Patient Position Hooklying Treatment Duration (minutes) 10 PT-OP-T Assessment and Plan Start: 05/14/18 16:14 Freq: Status: Active Protocol: Document 05/29/18 12:47 LRN (Rec: 05/29/18 13:27 LRN [id number]) Physical Therapy Assessment Assessment Summary Assessment Pt is ~5 weeks s/p RCR. PROM is improving (flex 120 deg's, ER 40 deg's) and elbow/forearm strength is improving. Physical Therapy Plan Frequency and Duration Frequency of Treatment 2x/Week Plan of Care Start Date 05/15/18 Plan of Care End Date 08/17/18 Next Visit Focus/Plan Next Note Type Treatment Note Next Visit Plan Continue with PROM for L shoulder (out of sling) flex and ER, and IR stretch, elbow ROM and strengthening and scapular stabilization ex's with caution of protecting Supraspinatus. STM as needed and end with cryotherapy (IFES if needed) for pain management. Upright position with ex's by 07/13/18 to begin strengthening against gravity. Weight training starting per protocol.
--- NOTE | 2018-05-31 13:43 | PT.OTN ---
Current Diagnoses Impingement syndrome of left shoulder (05/31/18) Other intraoperative and postprocedural complications and disorders of the musculoskeletal system (05/31/18) Physical Therapy Treatment Note PT-OP-A Visit Information Start: 05/14/18 16:14 Freq: Status: Active Protocol: Document 05/31/18 12:47 LRN (Rec: 05/31/18 13:33 LRN [id number]) Out-Patient Physical Therapy Visit Information Visit Information Visit Type Treatment Note Visit Start Time 12:49 Visit Stop Time 13:37 Total Visit Minutes 48 Visit Number 5/10 Number of [employer] SALES Visits 0 Evaluation Information Evaluation Date 05/15/18 PT-OP-B Current Condition Start: 05/14/18 16:14 Freq: Status: Active Protocol: Document 05/15/18 12:47 LRN (Rec: 05/15/18 13:30 LRN [id number]) Current Condition History of Current Condition Onset Date 04/26/2018 Current Complaints No significant pain, occasional with pendulum ex. History of Current Condition Pt is 2 days short of being 3 weeks status post L shoulder, arthroscopic rotator cuff repair of a full tear. The pt reports after his in office surgery he was released home the same day. He has been doing Pendulum exercises as instructed 2 times per day. He states the first few days were the worst, but now he is having very little pain. His primary pain when present is in the posterior aspect of the upper back. He indicates his pain is in the left intrascapular region. Prior Treatments and Tests None Future Testing and Treatments Planned Follow up doctor visit Jun 08, 2018. Treatment Goals Patient/Caregiver Goals Pt goal is to regain use of L arm for functional activities (dressing, cooking, driving). Return to gym activites. Prior Functional Status Baseline Function- ADL's Independent Baseline Function- Mobility Independent Baseline Function- Recreation/Hobbies Gym workouts. Current Functional Impairments (Reported) Functional Limitations- ADL's Dressing, cooking, driving, clean up. Functional Limitations- Work/School Not able to work for [employer]. Functional Limitations- Recreation/ Not able to perform gym Hobbies workouts, carpentry (nailing). Personal Factors Other Personal Factors That May Effect Pt wanting to go to [place] the Therapy/Recovery first july. PT-OP-C Subjective Start: 05/14/18 16:14 Freq: Status: Active Protocol: Document 05/31/18 12:47 LRN (Rec: 05/31/18 13:33 LRN [id number]) OP-PT Subjective Patient Comments Patient Comments Would like arm to come out of sling. MD visit is next . 06/04/18. PT-OP-E Functional Tests Start: 05/14/18 16:14 Freq: Status: Active Protocol: Document 05/15/18 12:47 LRN (Rec: 05/15/18 14:50 LRN [id number]) Functional Tests Apley's Scratch Test Action 1: The subject is instructed to touch the opposite shoulder with his/her hand. This motion checks Glenohumeral adduction, internal rotation , horizontal adduction and scapular protraction Action 2: The subject is instructed to place his/her arm overhead and reach behind the neck to touch his/her upper back. This motion checks Glenohumeral abduction, external rotation and scapular upward rotation and elevation. Action 3: The subject puts his/her hand on the lower back and reaches upward as far as possible. This motion checks glenohumeral adduction, internal rotation and scapular retraction with downward rotation Action 1- Right Opposite shoulder Action 2- Right T4 Action 3- Right T10 PT-OP-F Manual Assessment Start: 05/14/18 16:14 Freq: Status: Active Protocol: Document 05/15/18 12:47 LRN (Rec: 05/15/18 14:50 LRN [id number]) Manual Assessments Other Manual Assessments Other Manual Assessments Increased muscle tone of L Upper Trapezius, Supraspinatus , & Rhomboids. PT-OP-H Neuro Start: 05/14/18 16:14 Freq: Status: Active Protocol: Document 05/15/18 12:47 LRN (Rec: 05/15/18 14:50 LRN [id number]) Sensation Evaluation Gross Sensation Gross Sensation WNL PT-OP-J Posture/Palpation/Skin Start: 05/14/18 16:14 Freq: Status: Active Protocol: Document 05/15/18 12:47 LRN (Rec: 05/15/18 14:50 LRN [id number]) Posture Evaluation Comments Posture Comments Standing: Head is level, neck is shifted left, L shoulder is low and retracted, scapula is downwardly rotated and bound to the rib cage, Skin Assessment Incisional Assessment Incision Appearance/Comments Well healed and good mobility. PT-OP-K Range of Motion Start: 05/14/18 16:14 Freq: Status: Active Protocol: Document 05/31/18 12:47 LRN (Rec: 05/31/18 13:33 LRN [id number]) Shoulder Goniometric Range of Motion Shoulder Measured in Degrees Left Passive Testing Position Supine Flexion 140 External Rotation at 0 degrees Abduction 60 PT-OP-M Strength Start: 05/14/18 16:14 Freq: Status: Active Protocol: Document 05/15/18 12:47 LRN (Rec: 05/15/18 14:50 LRN [id number]) Shoulder Strength Shoulder Manual Muscle Testing Left Comments Deferred testing due to s/p surgery restrictions of PROM. Right Reason Not Measured WFL Comments Generally 5/5. PT-OP-Q Treatments Start: 05/14/18 16:14 Freq: Status: Active Protocol: Document 05/31/18 12:47 LRN (Rec: 05/31/18 13:33 LRN [id number]) Therapeutic Exercises Supine Exercises Forearm Sup/Pron Side left Resistance 2# Reps/Minutes 15x2 each Scapular Pinch Side bilateral Reps/Minutes 30x Elbow ext Supine Exercise Name AROM ext Side left Resistance 3# Reps/Minutes 10x3 Shoulder ER Supine Exercise Name Passive ER stretch with arm in 0 deg's AB Side left Reps/Minutes 5' Comments Hold 10 sec's Shoulder Flex Supine Exercise Name Passive Flexion stretch Side left Reps/Minutes 5' Elbow flex Supine Exercise Name L elbow AROM Side left Resistance 0# 1#,2# Reps/Minutes 10 each Standing Exercises UT strengthening Standing Exercise Name Shrugs and rolls Side left Reps/Minutes Using mirror for visual feedback Intrascapular strengthening Standing Exercise Name Scapular pinches Side bilateral Reps/Minutes 30x Shoulder IR stretch Standing Exercise Name Passive Side left Equipment Used Towel Comments Long hold Pendulum Standing Exercise Name Flex, Circles CW/CCW Side right Reps/Minutes 30x PT-OP-R Modalities Start: 05/14/18 16:14 Freq: Status: Active Protocol: Document 05/31/18 12:47 LRN (Rec: 05/31/18 13:34 LRN [id number]) Hot Pack/Cold Pack Treatment Cold Pack Location L shoulder Patient Position Hooklying Treatment Duration (minutes) 10 PT-OP-T Assessment and Plan Start: 05/14/18 16:14 Freq: Status: Active Protocol: Document 05/31/18 12:47 LRN (Rec: 05/31/18 13:33 LRN [id number]) Physical Therapy Assessment Assessment Summary Assessment Pt is 5 weeks s/p RCR, PROM cont's to improve (flex 140 deg's, ER 60 ded's). Pt to see MD 06/04/18 and will verify if he can progress faster than protocol or if he is to stay PROM until 06/07/18. Pt denies soft tissue discomfort. Physical Therapy Plan Frequency and Duration Plan of Care Start Date 05/15/18 Plan of Care End Date 08/17/18 Next Visit Focus/Plan Next Note Type Treatment Note Next Visit Plan Continue with PROM for L shoulder (out of sling) flex and ER, and IR stretch, elbow ROM and strengthening and scapular stabilization ex's with caution of protecting Supraspinatus. STM as needed and end with cryotherapy (IFES if needed) for pain management. Upright position with ex's by 07/13/18 to begin strengthening against gravity. Weight training starting per protocol.
--- NOTE | 2018-06-05 14:05 | PT.OTN ---
Current Diagnoses Impingement syndrome of left shoulder (06/05/18) Other intraoperative and postprocedural complications and disorders of the musculoskeletal system (06/05/18) Physical Therapy Treatment Note PT-OP-A Visit Information Start: 05/14/18 16:14 Freq: Status: Active Protocol: Document 06/05/18 12:46 LRN (Rec: 06/05/18 13:51 LRN [id number]) Out-Patient Physical Therapy Visit Information Visit Information Visit Type Treatment Note Visit Start Time 12:46 Visit Stop Time 13:40 Total Visit Minutes 54 Visit Number 6/10 Number of TRANSFORMER REPAIRER Visits 0 Evaluation Information Evaluation Date 05/15/18 PT-OP-B Current Condition Start: 05/14/18 16:14 Freq: Status: Active Protocol: Document 05/15/18 12:47 LRN (Rec: 05/15/18 13:30 LRN [id number]) Current Condition History of Current Condition Onset Date 04/26/2018 Current Complaints No significant pain, occasional with pendulum ex. History of Current Condition Pt is 2 days short of being 3 weeks status post L shoulder, arthroscopic rotator cuff repair of a full tear. The pt reports after his in office surgery he was released home the same day. He has been doing Pendulum exercises as instructed 2 times per day. He states the first few days were the worst, but now he is having very little pain. His primary pain when present is in the posterior aspect of the upper back. He indicates his pain is in the left intrascapular region. Prior Treatments and Tests None Future Testing and Treatments Planned Follow up doctor visit Jun 08, 2018. Treatment Goals Patient/Caregiver Goals Pt goal is to regain use of L arm for functional activities (dressing, cooking, driving). Return to gym activites. Prior Functional Status Baseline Function- ADL's Independent Baseline Function- Mobility Independent Baseline Function- Recreation/Hobbies Gym workouts. Current Functional Impairments (Reported) Functional Limitations- ADL's Dressing, cooking, driving, clean up. Functional Limitations- Work/School Not able to work for [employer]. Functional Limitations- Recreation/ Not able to perform gym Hobbies workouts, carpentry (nailing). Personal Factors Other Personal Factors That May Effect Pt wanting to go to [place] the Therapy/Recovery first july. PT-OP-C Subjective Start: 05/14/18 16:14 Freq: Status: Active Protocol: Document 06/05/18 12:46 LRN (Rec: 06/05/18 13:51 LRN [id number]) OP-PT Subjective Patient Comments Patient Comments MD visit this morning, MD says I can go to the next phase, and he doesn't have to wear the sling anymore. PT-OP-E Functional Tests Start: 05/14/18 16:14 Freq: Status: Active Protocol: Document 05/15/18 12:47 LRN (Rec: 05/15/18 14:50 LRN [id number]) Functional Tests Apley's Scratch Test Action 1: The subject is instructed to touch the opposite shoulder with his/her hand. This motion checks Glenohumeral adduction, internal rotation , horizontal adduction and scapular protraction Action 2: The subject is instructed to place his/her arm overhead and reach behind the neck to touch his/her upper back. This motion checks Glenohumeral abduction, external rotation and scapular upward rotation and elevation. Action 3: The subject puts his/her hand on the lower back and reaches upward as far as possible. This motion checks glenohumeral adduction, internal rotation and scapular retraction with downward rotation Action 1- Right Opposite shoulder Action 2- Right T4 Action 3- Right T10 PT-OP-F Manual Assessment Start: 05/14/18 16:14 Freq: Status: Active Protocol: Document 05/15/18 12:47 LRN (Rec: 05/15/18 14:50 LRN [id number]) Manual Assessments Other Manual Assessments Other Manual Assessments Increased muscle tone of L Upper Trapezius, Supraspinatus , & Rhomboids. PT-OP-H Neuro Start: 05/14/18 16:14 Freq: Status: Active Protocol: Document 05/15/18 12:47 LRN (Rec: 05/15/18 14:50 LRN [id number]) Sensation Evaluation Gross Sensation Gross Sensation WNL PT-OP-J Posture/Palpation/Skin Start: 05/14/18 16:14 Freq: Status: Active Protocol: Document 05/15/18 12:47 LRN (Rec: 05/15/18 14:50 LRN [id number]) Posture Evaluation Comments Posture Comments Standing: Head is level, neck is shifted left, L shoulder is low and retracted, scapula is downwardly rotated and bound to the rib cage, Skin Assessment Incisional Assessment Incision Appearance/Comments Well healed and good mobility. PT-OP-K Range of Motion Start: 05/14/18 16:14 Freq: Status: Active Protocol: Document 06/05/18 12:46 LRN (Rec: 06/05/18 13:51 LRN [id number]) Shoulder Goniometric Range of Motion Shoulder Measured in Degrees Left Active Testing Position Supine Flexion 150 Horizontal Adduction 18 External Rotation at 90 degrees 60 Abduction Internal Rotation 50 Internal Rotation Behind Back (text) L5 Left Passive Testing Position Supine Flexion 144 Abduction 90 Horizontal Adduction 18 External Rotation at 90 degrees 70 Abduction External Rotation at 0 degrees Abduction 67 Internal Rotation 54 Right Active Horizontal Adduction 43 PT-OP-M Strength Start: 05/14/18 16:14 Freq: Status: Active Protocol: Document 05/15/18 12:47 LRN (Rec: 05/15/18 14:50 LRN [id number]) Shoulder Strength Shoulder Manual Muscle Testing Left Comments Deferred testing due to s/p surgery restrictions of PROM. Right Reason Not Measured WFL Comments Generally 5/5. PT-OP-Q Treatments Start: 05/14/18 16:14 Freq: Status: Active Protocol: Document 06/05/18 12:46 LRN (Rec: 06/05/18 13:51 LRN [id number]) Therapeutic Exercises Supine Exercises Elbow ext Supine Exercise Name AROM ext Side left Resistance 0# Reps/Minutes 10x3 Comments Unsupported for 1st time Supine & in standimg Shoulder ER Supine Exercise Name Passive/Active ER stretch with arm in 0 deg's AB Side left Reps/Minutes 6' Comments Hold 10 sec's Shoulder Flex Supine Exercise Name Passive/Active Flexion stretch Side left Reps/Minutes 6' Elbow flex Supine Exercise Name L elbow AROM Side left Resistance 1#,2# Reps/Minutes 15 each Comments Supine & Sit Standing Exercises Shoulder Depression Side bilateral Comments Physical cuing assist needed. UT strengthening Standing Exercise Name Shrugs and rolls Side left Reps/Minutes Using mirror for visual feedback Intrascapular strengthening Standing Exercise Name Scapular pinches Side left Resistance Lev 2 T-Band Reps/Minutes 4 Shoulder IR stretch Standing Exercise Name Active Assist Side left Pendulum Standing Exercise Name Warm up Reps/Minutes 3' Self-Care/Home Management Treatment Education Patient Education Home Exercise Program Activities Self-Care/Home Management Activities I/S pt in chest press, shoulder flexion and windshield wipe AROM. PT-OP-R Modalities Start: 05/14/18 16:14 Freq: Status: Active Protocol: Document 06/05/18 12:46 LRN (Rec: 06/05/18 13:51 LRN [id number]) Hot Pack/Cold Pack Treatment Cold Pack Location L shoulder Patient Position Hooklying Treatment Duration (minutes) 10 PT-OP-T Assessment and Plan Start: 05/14/18 16:14 Freq: Status: Active Protocol: Document 06/05/18 12:46 LRN (Rec: 06/05/18 13:51 LRN [id number]) Physical Therapy Assessment Goals Three Impairment Decreased strength L shoulder, limited to AROM until 08/17/18 . Nursing Home Goal (LTG) Pt will be able to lift light objects to assist with cooking , and will be able to drive without pain. LTG Duration 08/17/18 Two Impairment Decreased functional mobility of L shoulder Nursing Home Goal (LTG) Pt will be able to dress without assist LTG Duration 06/21/18 One Impairment Lacks appropriate HEP Caption Writer Goal (LTG) Pt will be independent in self care HEP. LTG Duration 07/20/2018 Progress Towards Goals Progress Towards Goals Progressing Toward Goals Assessment Summary Assessment Pt is ~5-1/2 weeks s/p RCR. Pt seen by MD with positive response for pt's progress. Pt is able to perform AROM of L shoulder flex, ER/IR, and able to reach behind his back without assist and without discomfort. PROM of L shoulder has improved with flex/ER (@0 deg's AB). Pt demonstrates PROM of L arm at 90 deg's AB without pain. Physical Therapy Plan Frequency and Duration Frequency of Treatment 2x/Week Plan of Care Start Date 05/15/18 Plan of Care End Date 08/17/18 Next Visit Focus/Plan Next Note Type Treatment Note Next Visit Plan Continue progressing with Phase II per protocol per MD direction. Continue with PROM for L shoulder (out of sling) flex and ER, and IR stretch, elbow ROM and strengthening and scapular stabilization ex' s with caution of protecting Supraspinatus. STM as needed and end with cryotherapy (IFES if needed) for pain management. Upright position to begin strengthening by 07/13 against gravity. Weight training starting 08/17/18 per protocol.
--- NOTE | 2018-06-12 13:39 | PT.OTN ---
Current Diagnoses Impingement syndrome of left shoulder (06/12/18) Other intraoperative and postprocedural complications and disorders of the musculoskeletal system (06/12/18) Physical Therapy Treatment Note PT-OP-A Visit Information Start: 05/14/18 16:14 Freq: Status: Active Protocol: Document 06/12/18 12:48 LRN (Rec: 06/12/18 13:37 LRN [id number]) Out-Patient Physical Therapy Visit Information Visit Information Visit Type Treatment Note Visit Start Time 12:48 Visit Stop Time 13:40 Total Visit Minutes 52 Visit Number 01/09 Number of STOCK BLENDER Visits 0 Evaluation Information Evaluation Date 05/15/18 PT-OP-B Current Condition Start: 05/14/18 16:14 Freq: Status: Active Protocol: Document 05/15/18 12:47 LRN (Rec: 05/15/18 13:30 LRN [id number]) Current Condition History of Current Condition Onset Date 04/26/2018 Current Complaints No significant pain, occasional with pendulum ex. History of Current Condition Pt is 2 days short of being 3 weeks status post L shoulder, arthroscopic rotator cuff repair of a full tear. The pt reports after his in office surgery he was released home the same day. He has been doing Pendulum exercises as instructed 2 times per day. He states the first few days were the worst, but now he is having very little pain. His primary pain when present is in the posterior aspect of the upper back. He indicates his pain is in the left intrascapular region. Prior Treatments and Tests None Future Testing and Treatments Planned Follow up doctor visit Jun 08, 2018. Treatment Goals Patient/Caregiver Goals Pt goal is to regain use of L arm for functional activities (dressing, cooking, driving). Return to gym activites. Prior Functional Status Baseline Function- ADL's Independent Baseline Function- Mobility Independent Baseline Function- Recreation/Hobbies Gym workouts. Current Functional Impairments (Reported) Functional Limitations- ADL's Dressing, cooking, driving, clean up. Functional Limitations- Work/School Not able to work for [employer]. Functional Limitations- Recreation/ Not able to perform gym Hobbies workouts, carpentry (nailing). Personal Factors Other Personal Factors That May Effect Pt wanting to go to [place] the Therapy/Recovery first july. PT-OP-C Subjective Start: 05/14/18 16:14 Freq: Status: Active Protocol: Document 06/12/18 12:48 LRN (Rec: 06/12/18 13:37 LRN [id number]) OP-PT Subjective Patient Comments Patient Comments Putting on socks and can get dressed easier. Shoulder was sore after the last session for a day. Feels he can do ex 's at home and prefers therapy 1x/week until resistive strengthening is started. Going to [place] 07/05/18 for 3 weeks. Will see MD on . PT-OP-E Functional Tests Start: 05/14/18 16:14 Freq: Status: Active Protocol: Document 05/15/18 12:47 LRN (Rec: 05/15/18 14:50 LRN [id number]) Functional Tests Apley's Scratch Test Action 1: The subject is instructed to touch the opposite shoulder with his/her hand. This motion checks Glenohumeral adduction, internal rotation , horizontal adduction and scapular protraction Action 2: The subject is instructed to place his/her arm overhead and reach behind the neck to touch his/her upper back. This motion checks Glenohumeral abduction, external rotation and scapular upward rotation and elevation. Action 3: The subject puts his/her hand on the lower back and reaches upward as far as possible. This motion checks glenohumeral adduction, internal rotation and scapular retraction with downward rotation Action 1- Right Opposite shoulder Action 2- Right T4 Action 3- Right T10 PT-OP-F Manual Assessment Start: 05/14/18 16:14 Freq: Status: Active Protocol: Document 05/15/18 12:47 LRN (Rec: 05/15/18 14:50 LRN [id number]) Manual Assessments Other Manual Assessments Other Manual Assessments Increased muscle tone of L Upper Trapezius, Supraspinatus , & Rhomboids. PT-OP-H Neuro Start: 05/14/18 16:14 Freq: Status: Active Protocol: Document 05/15/18 12:47 LRN (Rec: 05/15/18 14:50 LRN [id number]) Sensation Evaluation Gross Sensation Gross Sensation WNL PT-OP-J Posture/Palpation/Skin Start: 05/14/18 16:14 Freq: Status: Active Protocol: Document 05/15/18 12:47 LRN (Rec: 05/15/18 14:50 LRN [id number]) Posture Evaluation Comments Posture Comments Standing: Head is level, neck is shifted left, L shoulder is low and retracted, scapula is downwardly rotated and bound to the rib cage, Skin Assessment Incisional Assessment Incision Appearance/Comments Well healed and good mobility. PT-OP-K Range of Motion Start: 05/14/18 16:14 Freq: Status: Active Protocol: Document 06/12/18 12:48 LRN (Rec: 06/12/18 13:37 LRN [id number]) Shoulder Goniometric Range of Motion Shoulder Measured in Degrees Left Active External Rotation at 90 degrees 70 Abduction Left Passive External Rotation at 90 degrees 70 Abduction PT-OP-M Strength Start: 05/14/18 16:14 Freq: Status: Active Protocol: Document 05/15/18 12:47 LRN (Rec: 05/15/18 14:50 LRN [id number]) Shoulder Strength Shoulder Manual Muscle Testing Left Comments Deferred testing due to s/p surgery restrictions of PROM. Right Reason Not Measured WFL Comments Generally 5/5. PT-OP-Q Treatments Start: 05/14/18 16:14 Freq: Status: Active Protocol: Document 06/12/18 12:48 LRN (Rec: 06/12/18 13:37 LRN [id number]) Therapeutic Exercises Supine Exercises Rhythmic stabilization Supine Exercise Name Arm at 90 deg's flex for rhythmic stab Side left Reps/Minutes 20x PNF patterns Supine Exercise Name D1, D2 Side left Reps/Minutes 10 x each Shoulder ER Supine Exercise Name Passive/Active ER stretch with arm in 0 deg's AB Side left Reps/Minutes 6' Comments Hold 10 sec's Shoulder Flex Supine Exercise Name Passive/Active Flexion stretch Side left Reps/Minutes 6' Comments Ex done in supine and at 20 deg's elevated body. Elbow flex Supine Exercise Name L elbow AROM Side left Resistance 3# Reps/Minutes 10 x 3 Comments Supine & Sit Sidelying Exercises Capsular stretch Sidelying Exercise Name Sleeper stretch Side left Comments in 45, 90 deg's AB Standing Exercises Elbow curls Standing Exercise Name Biceps curls Side bilateral Resistance 3# Reps/Minutes 10 x 3 Shoulder ext Side bilateral Reps/Minutes 10 x 3 Comments Painfree range UT strengthening Standing Exercise Name Shrugs and rolls Side left Reps/Minutes Using mirror for visual feedback Intrascapular strengthening Standing Exercise Name Scapular pinches Side bilateral Reps/Minutes 4 Shoulder IR stretch Standing Exercise Name Active Assist Side left Pendulum Standing Exercise Name Warm up Reps/Minutes 3' Self-Care/Home Management Treatment Education Patient Education Home Exercise Program Activities Self-Care/Home Management Activities Issued and reviewed capsular stretch. PT-OP-R Modalities Start: 05/14/18 16:14 Freq: Status: Active Protocol: Document 06/05/18 12:46 LRN (Rec: 06/05/18 13:51 LRN [id number]) Hot Pack/Cold Pack Treatment Cold Pack Location L shoulder Patient Position Hooklying Treatment Duration (minutes) 10 PT-OP-T Assessment and Plan Start: 05/14/18 16:14 Freq: Status: Active Protocol: Document 06/12/18 12:48 LRN (Rec: 06/12/18 13:37 LRN [id number]) Physical Therapy Assessment Assessment Summary Assessment Pt is 7 weeks s/p R RCR. He is progressing steadily with no lasting pain. ROM is good for shoulder ER. Flex is more limited. Pt is to progress to upright in 3 weeks, no resistance. Physical Therapy Plan Next Visit Focus/Plan Next Note Type Treatment Note Next Visit Plan Continue progressing with Phase II per protocol per MD direction. Continue with PROM for L shoulder (out of sling) flex and ER, and IR stretch, elbow ROM and strengthening and scapular stabilization ex' s with caution of protecting Supraspinatus. STM as needed and end with cryotherapy (IFES if needed) for pain management. Upright position to begin strengthening by 07/13 against gravity. Weight training starting 08/17/18 per protocol.
--- NOTE | 2018-06-12 13:41 | PT.OTN ---
Current Diagnoses Impingement syndrome of left shoulder (06/12/18) Other intraoperative and postprocedural complications and disorders of the musculoskeletal system (06/12/18) Physical Therapy Treatment Note PT-OP-A Visit Information Start: 05/14/18 16:14 Freq: Status: Active Protocol: Document 06/12/18 12:48 LRN (Rec: 06/12/18 13:37 LRN [id number]) Out-Patient Physical Therapy Visit Information Visit Information Visit Type Treatment Note Visit Start Time 12:48 Visit Stop Time 13:40 Total Visit Minutes 52 Visit Number 01/09 Number of CAPTAIN FISHING VESSEL Visits 0 Evaluation Information Evaluation Date 05/15/18 PT-OP-B Current Condition Start: 05/14/18 16:14 Freq: Status: Active Protocol: Document 05/15/18 12:47 LRN (Rec: 05/15/18 13:30 LRN [id number]) Current Condition History of Current Condition Onset Date 04/26/2018 Current Complaints No significant pain, occasional with pendulum ex. History of Current Condition Pt is 2 days short of being 3 weeks status post L shoulder, arthroscopic rotator cuff repair of a full tear. The pt reports after his in office surgery he was released home the same day. He has been doing Pendulum exercises as instructed 2 times per day. He states the first few days were the worst, but now he is having very little pain. His primary pain when present is in the posterior aspect of the upper back. He indicates his pain is in the left intrascapular region. Prior Treatments and Tests None Future Testing and Treatments Planned Follow up doctor visit Jun 08, 2018. Treatment Goals Patient/Caregiver Goals Pt goal is to regain use of L arm for functional activities (dressing, cooking, driving). Return to gym activites. Prior Functional Status Baseline Function- ADL's Independent Baseline Function- Mobility Independent Baseline Function- Recreation/Hobbies Gym workouts. Current Functional Impairments (Reported) Functional Limitations- ADL's Dressing, cooking, driving, clean up. Functional Limitations- Work/School Not able to work for [employer]. Functional Limitations- Recreation/ Not able to perform gym Hobbies workouts, carpentry (nailing). Personal Factors Other Personal Factors That May Effect Pt wanting to go to [place] the Therapy/Recovery first july. PT-OP-C Subjective Start: 05/14/18 16:14 Freq: Status: Active Protocol: Document 06/12/18 12:48 LRN (Rec: 06/12/18 13:37 LRN [id number]) OP-PT Subjective Patient Comments Patient Comments Putting on socks and can get dressed easier. Shoulder was sore after the last session for a day. Feels he can do ex 's at home and prefers therapy 1x/week until resistive strengthening is started. Going to [place] 07/05/18 for 3 weeks. Will see MD on . PT-OP-E Functional Tests Start: 05/14/18 16:14 Freq: Status: Active Protocol: Document 05/15/18 12:47 LRN (Rec: 05/15/18 14:50 LRN [id number]) Functional Tests Apley's Scratch Test Action 1: The subject is instructed to touch the opposite shoulder with his/her hand. This motion checks Glenohumeral adduction, internal rotation , horizontal adduction and scapular protraction Action 2: The subject is instructed to place his/her arm overhead and reach behind the neck to touch his/her upper back. This motion checks Glenohumeral abduction, external rotation and scapular upward rotation and elevation. Action 3: The subject puts his/her hand on the lower back and reaches upward as far as possible. This motion checks glenohumeral adduction, internal rotation and scapular retraction with downward rotation Action 1- Right Opposite shoulder Action 2- Right T4 Action 3- Right T10 PT-OP-F Manual Assessment Start: 05/14/18 16:14 Freq: Status: Active Protocol: Document 05/15/18 12:47 LRN (Rec: 05/15/18 14:50 LRN [id number]) Manual Assessments Other Manual Assessments Other Manual Assessments Increased muscle tone of L Upper Trapezius, Supraspinatus , & Rhomboids. PT-OP-H Neuro Start: 05/14/18 16:14 Freq: Status: Active Protocol: Document 05/15/18 12:47 LRN (Rec: 05/15/18 14:50 LRN [id number]) Sensation Evaluation Gross Sensation Gross Sensation WNL PT-OP-J Posture/Palpation/Skin Start: 05/14/18 16:14 Freq: Status: Active Protocol: Document 05/15/18 12:47 LRN (Rec: 05/15/18 14:50 LRN [id number]) Posture Evaluation Comments Posture Comments Standing: Head is level, neck is shifted left, L shoulder is low and retracted, scapula is downwardly rotated and bound to the rib cage, Skin Assessment Incisional Assessment Incision Appearance/Comments Well healed and good mobility. PT-OP-K Range of Motion Start: 05/14/18 16:14 Freq: Status: Active Protocol: Document 06/12/18 12:48 LRN (Rec: 06/12/18 13:37 LRN [id number]) Shoulder Goniometric Range of Motion Shoulder Measured in Degrees Left Active External Rotation at 90 degrees 70 Abduction Left Passive External Rotation at 90 degrees 70 Abduction PT-OP-M Strength Start: 05/14/18 16:14 Freq: Status: Active Protocol: Document 05/15/18 12:47 LRN (Rec: 05/15/18 14:50 LRN [id number]) Shoulder Strength Shoulder Manual Muscle Testing Left Comments Deferred testing due to s/p surgery restrictions of PROM. Right Reason Not Measured WFL Comments Generally 5/5. PT-OP-Q Treatments Start: 05/14/18 16:14 Freq: Status: Active Protocol: Document 06/12/18 12:48 LRN (Rec: 06/12/18 13:37 LRN [id number]) Therapeutic Exercises Supine Exercises Rhythmic stabilization Supine Exercise Name Arm at 90 deg's flex for rhythmic stab Side left Reps/Minutes 20x PNF patterns Supine Exercise Name D1, D2 Side left Reps/Minutes 10 x each Shoulder ER Supine Exercise Name Passive/Active ER stretch with arm in 0 deg's AB Side left Reps/Minutes 6' Comments Hold 10 sec's Shoulder Flex Supine Exercise Name Passive/Active Flexion stretch Side left Reps/Minutes 6' Comments Ex done in supine and at 20 deg's elevated body. Elbow flex Supine Exercise Name L elbow AROM Side left Resistance 3# Reps/Minutes 10 x 3 Comments Supine & Sit Sidelying Exercises Capsular stretch Sidelying Exercise Name Sleeper stretch Side left Comments in 45, 90 deg's AB Standing Exercises Elbow curls Standing Exercise Name Biceps curls Side bilateral Resistance 3# Reps/Minutes 10 x 3 Shoulder ext Side bilateral Reps/Minutes 10 x 3 Comments Painfree range UT strengthening Standing Exercise Name Shrugs and rolls Side left Reps/Minutes Using mirror for visual feedback Intrascapular strengthening Standing Exercise Name Scapular pinches Side bilateral Reps/Minutes 4 Shoulder IR stretch Standing Exercise Name Active Assist Side left Pendulum Standing Exercise Name Warm up Reps/Minutes 3' Self-Care/Home Management Treatment Education Patient Education Home Exercise Program Activities Self-Care/Home Management Activities Issued and reviewed capsular stretch. PT-OP-R Modalities Start: 05/14/18 16:14 Freq: Status: Active Protocol: Document 06/12/18 12:48 LRN (Rec: 06/12/18 13:41 LRN [id number]) Hot Pack/Cold Pack Treatment Cold Pack Location L shoulder Patient Position Hooklying Treatment Duration (minutes) 10 PT-OP-T Assessment and Plan Start: 05/14/18 16:14 Freq: Status: Active Protocol: Document 06/12/18 12:48 LRN (Rec: 06/12/18 13:37 LRN [id number]) Physical Therapy Assessment Assessment Summary Assessment Pt is 7 weeks s/p R RCR. He is progressing steadily with no lasting pain. ROM is good for shoulder ER. Flex is more limited. Pt is to progress to upright in 3 weeks, no resistance. Physical Therapy Plan Next Visit Focus/Plan Next Note Type Treatment Note Next Visit Plan Continue progressing with Phase II per protocol per MD direction. Continue with PROM for L shoulder (out of sling) flex and ER, and IR stretch, elbow ROM and strengthening and scapular stabilization ex' s with caution of protecting Supraspinatus. STM as needed and end with cryotherapy (IFES if needed) for pain management. Upright position to begin strengthening by 07/13 against gravity. Weight training starting 08/17/18 per protocol.
--- NOTE | 2018-06-19 13:59 | PT.OTN ---
Current Diagnoses Impingement syndrome of left shoulder (06/19/18) Other intraoperative and postprocedural complications and disorders of the musculoskeletal system (06/19/18) Physical Therapy Treatment Note PT-OP-A Visit Information Start: 05/14/18 16:14 Freq: Status: Active Protocol: Document 06/19/18 12:48 LRN (Rec: 06/19/18 13:33 LRN [id number]) Out-Patient Physical Therapy Visit Information Visit Information Visit Type Treatment Note Visit Start Time 12:48 Visit Stop Time 13:40 Total Visit Minutes 52 Visit Number 8/10 Number of SUPERVISOR PLASTERING Visits 0 Evaluation Information Evaluation Date 05/15/18 PT-OP-B Current Condition Start: 05/14/18 16:14 Freq: Status: Active Protocol: Document 05/15/18 12:47 LRN (Rec: 05/15/18 13:30 LRN [id number]) Current Condition History of Current Condition Onset Date 04/26/2018 Current Complaints No significant pain, occasional with pendulum ex. History of Current Condition Pt is 2 days short of being 3 weeks status post L shoulder, arthroscopic rotator cuff repair of a full tear. The pt reports after his in office surgery he was released home the same day. He has been doing Pendulum exercises as instructed 2 times per day. He states the first few days were the worst, but now he is having very little pain. His primary pain when present is in the posterior aspect of the upper back. He indicates his pain is in the left intrascapular region. Prior Treatments and Tests None Future Testing and Treatments Planned Follow up doctor visit Jun 08, 2018. Treatment Goals Patient/Caregiver Goals Pt goal is to regain use of L arm for functional activities (dressing, cooking, driving). Return to gym activites. Prior Functional Status Baseline Function- ADL's Independent Baseline Function- Mobility Independent Baseline Function- Recreation/Hobbies Gym workouts. Current Functional Impairments (Reported) Functional Limitations- ADL's Dressing, cooking, driving, clean up. Functional Limitations- Work/School Not able to work for [employer]. Functional Limitations- Recreation/ Not able to perform gym Hobbies workouts, carpentry (nailing). Personal Factors Other Personal Factors That May Effect Pt wanting to go to [place] the Therapy/Recovery first july. PT-OP-C Subjective Start: 05/14/18 16:14 Freq: Status: Active Protocol: Document 06/19/18 12:48 LRN (Rec: 06/19/18 13:33 LRN [id number]) OP-PT Subjective Patient Comments Patient Comments A little sore, but states things are going great. Seeing MD on the . PT-OP-E Functional Tests Start: 05/14/18 16:14 Freq: Status: Active Protocol: Document 05/15/18 12:47 LRN (Rec: 05/15/18 14:50 LRN [id number]) Functional Tests Apley's Scratch Test Action 1: The subject is instructed to touch the opposite shoulder with his/her hand. This motion checks Glenohumeral adduction, internal rotation , horizontal adduction and scapular protraction Action 2: The subject is instructed to place his/her arm overhead and reach behind the neck to touch his/her upper back. This motion checks Glenohumeral abduction, external rotation and scapular upward rotation and elevation. Action 3: The subject puts his/her hand on the lower back and reaches upward as far as possible. This motion checks glenohumeral adduction, internal rotation and scapular retraction with downward rotation Action 1- Right Opposite shoulder Action 2- Right T4 Action 3- Right T10 PT-OP-F Manual Assessment Start: 05/14/18 16:14 Freq: Status: Active Protocol: Document 05/15/18 12:47 LRN (Rec: 05/15/18 14:50 LRN [id number]) Manual Assessments Other Manual Assessments Other Manual Assessments Increased muscle tone of L Upper Trapezius, Supraspinatus , & Rhomboids. PT-OP-H Neuro Start: 05/14/18 16:14 Freq: Status: Active Protocol: Document 05/15/18 12:47 LRN (Rec: 05/15/18 14:50 LRN [id number]) Sensation Evaluation Gross Sensation Gross Sensation WNL PT-OP-J Posture/Palpation/Skin Start: 05/14/18 16:14 Freq: Status: Active Protocol: Document 05/15/18 12:47 LRN (Rec: 05/15/18 14:50 LRN [id number]) Posture Evaluation Comments Posture Comments Standing: Head is level, neck is shifted left, L shoulder is low and retracted, scapula is downwardly rotated and bound to the rib cage, Skin Assessment Incisional Assessment Incision Appearance/Comments Well healed and good mobility. PT-OP-K Range of Motion Start: 05/14/18 16:14 Freq: Status: Active Protocol: Document 06/19/18 12:48 LRN (Rec: 06/19/18 13:39 LRN [id number]) Shoulder Goniometric Range of Motion Shoulder Measured in Degrees Left Active Internal Rotation Behind Back (text) L1 (1 inch higher than right side) Left Passive Testing Position Sitting Flexion 155 External Rotation at 90 degrees 75 Abduction Internal Rotation Behind Back (text) L1, reaching 1 inch more than R hand. PT-OP-M Strength Start: 05/14/18 16:14 Freq: Status: Active Protocol: Document 05/15/18 12:47 LRN (Rec: 05/15/18 14:50 LRN [id number]) Shoulder Strength Shoulder Manual Muscle Testing Left Comments Deferred testing due to s/p surgery restrictions of PROM. Right Reason Not Measured WFL Comments Generally 5/5. PT-OP-Q Treatments Start: 05/14/18 16:14 Freq: Status: Active Protocol: Document 06/19/18 12:48 LRN (Rec: 06/19/18 13:33 LRN [id number]) Therapeutic Exercises Supine Exercises Shoulder Flex Supine Exercise Name Active Flex (45 degs reclined) Side left Reps/Minutes 6' Sidelying Exercises Shoulder IR Sidelying Exercise Name Active shoulder IR, L sidelie Side left Reps/Minutes 15 x 2 Comments Inclined ~30 deg's Shoulder ER Sidelying Exercise Name Active shoulder ER in R Sidelie Side left Reps/Minutes 15 x 2 Comments Inclined ~30 deg's Sitting Exercises Passive shoulder flex Sitting Exercise Name Flex with Po Side right Equipment Used Po Reps/Minutes 3' Comments Flex: 165 deg's, ER 75 deg Standing Exercises Elbow curls Standing Exercise Name Biceps curls Side bilateral Resistance 5# Reps/Minutes 10 x 3 Shoulder ext Side bilateral Resistance 2# Reps/Minutes 15 x 2 Comments Painfree range Shoulder IR stretch Standing Exercise Name Active Assist Side left Pendulum Standing Exercise Name Warm up Reps/Minutes 3' Self-Care/Home Management Treatment Education Patient Education Home Exercise Program Other Education Educated pt in MD protocol for when to begin AROM against gravity (by 07/13/18) and when to start resistive ex's (). Discussed not using H2O as strengthening and discussed gravity resistance and use of L arm for stabilizing foods when cooking must be avoided until cleared for resistive exercise. Activities Self-Care/Home Management Activities I/S pt in different positioning to get biceps/ triceps strengthening. PT-OP-R Modalities Start: 05/14/18 16:14 Freq: Status: Active Protocol: Document 06/19/18 12:48 LRN (Rec: 06/19/18 13:40 LRN [id number]) Hot Pack/Cold Pack Treatment Cold Pack Location L shoulder Patient Position Hooklying Treatment Duration (minutes) 10 PT-OP-T Assessment and Plan Start: 05/14/18 16:14 Freq: Status: Active Protocol: Document 06/19/18 12:48 LRN (Rec: 06/19/18 13:33 LRN [id number]) Physical Therapy Assessment Goals Three Impairment Decreased strength L shoulder, limited to AROM until 08/17/18 . Children'S Aide Goal (LTG) Pt will be able to lift light objects to assist with cooking , and will be able to drive without pain. LTG Duration 08/17/18 Two Impairment Decreased functional mobility of L shoulder Children'S Aide Goal (LTG) Pt will be able to dress without assist LTG Duration 06/21/18 GOAL MET 06/19/18. One Impairment Lacks appropriate HEP Mcfp Goal (LTG) Pt will be independent in self care HEP. LTG Duration 07/20/2018 Progress Towards Goals Progress Towards Goals Progressing Toward Goals Progress Comments Pt notes able to lift a coffee cup with L hand and is driving with his arms low on steering wheel. Pt is dressing self, GOAL #1 PARTIALLY MET; GOAL #2 Met. Pt has been educated in Phase II requirements; therefore HEP progressing per protocol. Assessment Summary Assessment Pt is 8 week s/p R RCR. He is moving his L arm against gravity without difficulty and pain for all motions. He describes using his arm to lift cups of coffee and driving with arms low without difficulty. Pt may be using his L arm more than the protocol intended, but pt is having no pain or discomfort. He cont's to progress in mobility and strength per his tolerance to exercise. ROM is improving: IR is normal, ER is 75 deg's (in 90 deg's AB), Flex is 155 deg's. Physical Therapy Plan Frequency and Duration Frequency of Treatment 2x/Week Plan of Care Start Date 05/15/18 Plan of Care End Date 08/17/18 Next Visit Focus/Plan Next Note Type Treatment Note Next Visit Plan Continue progressing with Phase II per protocol per MD direction. Continue with AROM for L shoulder flex and ER, and IR stretch, elbow strengthening and scapular stabilization ex's with caution of protecting Supraspinatus until end of week (s/p 8 weeks). Cryotherapy (IFES if needed) for pain management. Upright position to begin strengthening by 07/13/18 against gravity. Weight training starting 08/17/18 per protocol.
--- NOTE | 2018-07-16 15:15 | PT.OTN ---
Current Diagnoses Impingement syndrome of left shoulder (07/16/18) Other intraoperative and postprocedural complications and disorders of the musculoskeletal system (07/16/18) Physical Therapy Treatment Note PT-OP-A Visit Information Start: 05/14/18 16:14 Freq: Status: Active Protocol: Document 07/16/18 09:48 LRN (Rec: 07/16/18 10:38 LRN [id number]) Out-Patient Physical Therapy Visit Information Visit Information Visit Type Treatment Note Visit Start Time 09:48 Visit Stop Time 10:40 Total Visit Minutes 52 Visit Number 9/10 Number of TUBE BENDER Visits 0 Evaluation Information Evaluation Date 05/15/18 PT-OP-B Current Condition Start: 05/14/18 16:14 Freq: Status: Active Protocol: Document 05/15/18 12:47 LRN (Rec: 05/15/18 13:30 LRN [id number]) Current Condition History of Current Condition Onset Date 04/26/2018 Current Complaints No significant pain, occasional with pendulum ex. History of Current Condition Pt is 2 days short of being 3 weeks status post L shoulder, arthroscopic rotator cuff repair of a full tear. The pt reports after his in office surgery he was released home the same day. He has been doing Pendulum exercises as instructed 2 times per day. He states the first few days were the worst, but now he is having very little pain. His primary pain when present is in the posterior aspect of the upper back. He indicates his pain is in the left intrascapular region. Prior Treatments and Tests None Future Testing and Treatments Planned Follow up doctor visit Jun 08, 2018. Treatment Goals Patient/Caregiver Goals Pt goal is to regain use of L arm for functional activities (dressing, cooking, driving). Return to gym activites. Prior Functional Status Baseline Function- ADL's Independent Baseline Function- Mobility Independent Baseline Function- Recreation/Hobbies Gym workouts. Current Functional Impairments (Reported) Functional Limitations- ADL's Dressing, cooking, driving, clean up. Functional Limitations- Work/School Not able to work for [employer]. Functional Limitations- Recreation/ Not able to perform gym Hobbies workouts, carpentry (nailing). Personal Factors Other Personal Factors That May Effect Pt wanting to go to [place] the Therapy/Recovery first july. PT-OP-C Subjective Start: 05/14/18 16:14 Freq: Status: Active Protocol: Document 07/16/18 09:48 LRN (Rec: 07/16/18 10:38 LRN [id number]) OP-PT Subjective Patient Comments Patient Comments States he has been going to gym and doing the eliptical for 1/2 hr. He has also started 2 classes: Body Tone and Step class, he is not doing the arm strengthening parts that are on the floor. Three weeks ago he saw and was told after one more week he could start phase III ( resisted strengthening program ). States he is more sore in the shoulder. PT-OP-E Functional Tests Start: 05/14/18 16:14 Freq: Status: Active Protocol: Document 05/15/18 12:47 LRN (Rec: 05/15/18 14:50 LRN [id number]) Functional Tests Apley's Scratch Test Action 1: The subject is instructed to touch the opposite shoulder with his/her hand. This motion checks Glenohumeral adduction, internal rotation , horizontal adduction and scapular protraction Action 2: The subject is instructed to place his/her arm overhead and reach behind the neck to touch his/her upper back. This motion checks Glenohumeral abduction, external rotation and scapular upward rotation and elevation. Action 3: The subject puts his/her hand on the lower back and reaches upward as far as possible. This motion checks glenohumeral adduction, internal rotation and scapular retraction with downward rotation Action 1- Right Opposite shoulder Action 2- Right T4 Action 3- Right T10 PT-OP-F Manual Assessment Start: 05/14/18 16:14 Freq: Status: Active Protocol: Document 05/15/18 12:47 LRN (Rec: 05/15/18 14:50 LRN [id number]) Manual Assessments Other Manual Assessments Other Manual Assessments Increased muscle tone of L Upper Trapezius, Supraspinatus , & Rhomboids. PT-OP-H Neuro Start: 05/14/18 16:14 Freq: Status: Active Protocol: Document 05/15/18 12:47 LRN (Rec: 05/15/18 14:50 LRN [id number]) Sensation Evaluation Gross Sensation Gross Sensation WNL PT-OP-J Posture/Palpation/Skin Start: 05/14/18 16:14 Freq: Status: Active Protocol: Document 05/15/18 12:47 LRN (Rec: 05/15/18 14:50 LRN [id number]) Posture Evaluation Comments Posture Comments Standing: Head is level, neck is shifted left, L shoulder is low and retracted, scapula is downwardly rotated and bound to the rib cage, Skin Assessment Incisional Assessment Incision Appearance/Comments Well healed and good mobility. PT-OP-K Range of Motion Start: 05/14/18 16:14 Freq: Status: Active Protocol: Document 07/16/18 09:48 LRN (Rec: 07/16/18 10:38 LRN [id number]) Shoulder Goniometric Range of Motion Shoulder Measured in Degrees Left Active Flexion 170 External Rotation at 90 degrees 80 Abduction Internal Rotation 75 Left Passive Flexion 170 External Rotation at 90 degrees 90 Abduction Internal Rotation 75 Right Active Flexion 173 External Rotation at 90 degrees 110 Abduction Internal Rotation 75 PT-OP-M Strength Start: 05/14/18 16:14 Freq: Status: Active Protocol: Document 05/15/18 12:47 LRN (Rec: 05/15/18 14:50 LRN [id number]) Shoulder Strength Shoulder Manual Muscle Testing Left Comments Deferred testing due to s/p surgery restrictions of PROM. Right Reason Not Measured WFL Comments Generally 5/5. PT-OP-Q Treatments Start: 05/14/18 16:14 Freq: Status: Active Protocol: Document 07/16/18 09:48 LRN (Rec: 07/16/18 10:38 LRN [id number]) Cardio Equipment Upper Body Ergometer (UBE) Duration (Minutes) 8 RPM 90 Seat Position 4 Height 7 Therapeutic Exercises Supine Exercises Shoulder IR Supine Exercise Name Passive/Active IR stretch with arm in 90 deg's AB Side left Reps/Minutes 4' Shoulder ER Supine Exercise Name Passive/Active ER stretch with arm in 90 deg's AB Side left Reps/Minutes 6' Shoulder Flex Supine Exercise Name End-range stretch Side left Sidelying Exercises Shoulder IR Sidelying Exercise Name Active shoulder IR, L sidelie Side left Resistance 3#, 4# Reps/Minutes 15 X each Shoulder ER Sidelying Exercise Name Active shoulder ER in R Sidelie Side left Resistance 2# Reps/Minutes 15 x 2 Sitting Exercises Passive shoulder flex Sitting Exercise Name Flex with Po Side right Equipment Used Po Reps/Minutes 3' Comments Flex: 165 deg's, ER 75 deg Standing Exercises Shoulder IR stretch Standing Exercise Name Active Assist Side left Pendulum Standing Exercise Name Warm up Reps/Minutes 3' Self-Care/Home Management Treatment Education 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 PT-OP-R Modalities Start: 05/14/18 16:14 Freq: Status: Active Protocol: Document 07/16/18 09:48 LRN (Rec: 07/16/18 14:53 LRN [id number]) Hot Pack/Cold Pack Treatment Cold Pack Location L shoulder Patient Position Hooklying Treatment Duration (minutes) 10 PT-OP-T Assessment and Plan Start: 05/14/18 16:14 Freq: Status: Active Protocol: Document 07/16/18 09:48 LRN (Rec: 07/16/18 10:38 LRN [id number]) Physical Therapy Assessment Assessment Summary Assessment Pt is 12 weeks s/p R RCR. According to the pt he has been progressed to Phase III of Dr. Ybarra rehab protocol for resisted elastic cord ex's (forward punch, IR, ER, shrugs, rows) & continuation of phase II. Pt is having general soreness of the shoulder ER/IR's with an increase in activity level. Physical Therapy Plan Frequency and Duration Frequency of Treatment 2x/Week Plan of Care Start Date 05/15/18 Plan of Care End Date 08/17/18 Next Visit Focus/Plan Next Note Type Treatment Note Next Visit Plan Continue with Phase III per MD direction 1-2x/week with resisted elastic cord ex's, phase II (AROM: L shoulder flex & ER/IR stretch, elbow strengthening and scapular stab ex's with caution of Supraspinatus reinjury. Place pt on HEP of strengthening ex 's with plan to DC to HEP when pt feels he is independent and safe in 1-3 weeks. Cryotherapy, IFES as needed for pain management. Weight training starting 08/17/18 per protocol.
--- NOTE | 2018-07-24 15:33 | PT.OTN ---
Current Diagnoses Impingement syndrome of left shoulder (07/24/18) Other intraoperative and postprocedural complications and disorders of the musculoskeletal system (07/24/18) Physical Therapy Treatment Note PT-OP-A Visit Information Start: 05/14/18 16:14 Freq: Status: Active Protocol: Document 07/24/18 15:19 SA (Rec: 07/24/18 15:33 SA [id number]) Out-Patient Physical Therapy Visit Information Visit Information Visit Type Treatment Note Visit Start Time 13:48 Visit Stop Time 14:36 Total Visit Minutes 48 Visit Number 10 Number of MANAGER MASS Visits 1 PT-OP-B Current Condition Start: 05/14/18 16:14 Freq: Status: Active Protocol: Document 05/15/18 12:47 LRN (Rec: 05/15/18 13:30 LRN [id number]) Current Condition History of Current Condition Onset Date 04/26/2018 Current Complaints No significant pain, occasional with pendulum ex. History of Current Condition Pt is 2 days short of being 3 weeks status post L shoulder, arthroscopic rotator cuff repair of a full tear. The pt reports after his in office surgery he was released home the same day. He has been doing Pendulum exercises as instructed 2 times per day. He states the first few days were the worst, but now he is having very little pain. His primary pain when present is in the posterior aspect of the upper back. He indicates his pain is in the left intrascapular region. Prior Treatments and Tests None Future Testing and Treatments Planned Follow up doctor visit Jun 08, 2018. Treatment Goals Patient/Caregiver Goals Pt goal is to regain use of L arm for functional activities (dressing, cooking, driving). Return to gym activites. Prior Functional Status Baseline Function- ADL's Independent Baseline Function- Mobility Independent Baseline Function- Recreation/Hobbies Gym workouts. Current Functional Impairments (Reported) Functional Limitations- ADL's Dressing, cooking, driving, clean up. Functional Limitations- Work/School Not able to work for [employer]. Functional Limitations- Recreation/ Not able to perform gym Hobbies workouts, carpentry (nailing). Personal Factors Other Personal Factors That May Effect Pt wanting to go to [place] the Therapy/Recovery first july. PT-OP-C Subjective Start: 05/14/18 16:14 Freq: Status: Active Protocol: Document 07/24/18 15:19 SA (Rec: 07/24/18 15:33 SA [id number]) OP-PT Subjective Patient Comments Patient Comments Pt reports he is doing well with exercise classes, HEP and use of eliptical. Did not do any quadriped activity. PT-OP-E Functional Tests Start: 05/14/18 16:14 Freq: Status: Active Protocol: Document 05/15/18 12:47 LRN (Rec: 05/15/18 14:50 LRN [id number]) Functional Tests Apley's Scratch Test Action 1: The subject is instructed to touch the opposite shoulder with his/her hand. This motion checks Glenohumeral adduction, internal rotation , horizontal adduction and scapular protraction Action 2: The subject is instructed to place his/her arm overhead and reach behind the neck to touch his/her upper back. This motion checks Glenohumeral abduction, external rotation and scapular upward rotation and elevation. Action 3: The subject puts his/her hand on the lower back and reaches upward as far as possible. This motion checks glenohumeral adduction, internal rotation and scapular retraction with downward rotation Action 1- Right Opposite shoulder Action 2- Right T4 Action 3- Right T10 PT-OP-F Manual Assessment Start: 05/14/18 16:14 Freq: Status: Active Protocol: Document 05/15/18 12:47 LRN (Rec: 05/15/18 14:50 LRN [id number]) Manual Assessments Other Manual Assessments Other Manual Assessments Increased muscle tone of L Upper Trapezius, Supraspinatus , & Rhomboids. PT-OP-H Neuro Start: 05/14/18 16:14 Freq: Status: Active Protocol: Document 05/15/18 12:47 LRN (Rec: 05/15/18 14:50 LRN [id number]) Sensation Evaluation Gross Sensation Gross Sensation WNL PT-OP-J Posture/Palpation/Skin Start: 05/14/18 16:14 Freq: Status: Active Protocol: Document 05/15/18 12:47 LRN (Rec: 05/15/18 14:50 LRN [id number]) Posture Evaluation Comments Posture Comments Standing: Head is level, neck is shifted left, L shoulder is low and retracted, scapula is downwardly rotated and bound to the rib cage, Skin Assessment Incisional Assessment Incision Appearance/Comments Well healed and good mobility. PT-OP-K Range of Motion Start: 05/14/18 16:14 Freq: Status: Active Protocol: Document 07/16/18 09:48 LRN (Rec: 07/16/18 10:38 LRN [id number]) Shoulder Goniometric Range of Motion Shoulder Measured in Degrees Left Active Flexion 170 External Rotation at 90 degrees 80 Abduction Internal Rotation 75 Left Passive Flexion 170 External Rotation at 90 degrees 90 Abduction Internal Rotation 75 Right Active Flexion 173 External Rotation at 90 degrees 110 Abduction Internal Rotation 75 PT-OP-M Strength Start: 05/14/18 16:14 Freq: Status: Active Protocol: Document 05/15/18 12:47 LRN (Rec: 05/15/18 14:50 LRN [id number]) Shoulder Strength Shoulder Manual Muscle Testing Left Comments Deferred testing due to s/p surgery restrictions of PROM. Right Reason Not Measured WFL Comments Generally 5/5. PT-OP-Q Treatments Start: 05/14/18 16:14 Freq: Status: Active Protocol: Document 07/24/18 15:19 SA (Rec: 07/24/18 15:33 SA [id number]) Cardio Equipment Upper Body Ergometer (UBE) Duration (Minutes) 7 RPM 90 Seat Position 4 Height 7 Therapeutic Exercises Supine Exercises Shoulder IR Supine Exercise Name Passive/Active IR stretch with arm in 90 deg's AB Side left Reps/Minutes 4' Shoulder ER Supine Exercise Name Passive/Active ER stretch with arm in 90 deg's AB Side left Reps/Minutes 6' Shoulder Flex Supine Exercise Name End-range stretch Side left Sidelying Exercises Shoulder IR Sidelying Exercise Name Active shoulder IR, L sidelie Side left Resistance 3#, 4# Reps/Minutes 15 X each Shoulder ER Sidelying Exercise Name Active shoulder ER in R Sidelie Side left Resistance 2# Reps/Minutes 15 x 2 Sitting Exercises Passive shoulder flex Sitting Exercise Name Flex with Po Side right Equipment Used Po Reps/Minutes 3' Comments Flex: 165 deg's, ER 75 deg Standing Exercises Intrascapular strengthening Standing Exercise Name Rows Side bilateral Equipment Used TB Lv 3 Reps/Minutes 2 x 10 Shoulder IR stretch Standing Exercise Name Active Assist Side left PT-OP-R Modalities Start: 05/14/18 16:14 Freq: Status: Active Protocol: Document 07/24/18 15:19 SA (Rec: 07/24/18 15:33 SA [id number]) Hot Pack/Cold Pack Treatment Cold Pack Location L shoulder Patient Position Hooklying Treatment Duration (minutes) 10 PT-OP-T Assessment and Plan Start: 05/14/18 16:14 Freq: Status: Active Protocol: Document 07/24/18 15:19 SA (Rec: 07/24/18 15:33 [id number]) Physical Therapy Assessment Assessment Summary Assessment Pt is 13 weeks post-op R RCR, he is progressing well into phase III of protocol with good tolerance for strengthening and ROM work. Denies pain. Physical Therapy Plan Next Visit Focus/Plan Next Note Type Treatment Note Next Visit Plan Continue to progress with TB resistance with phase III protocol
--- NOTE | 2018-08-07 14:52 | PT.OPPN ---
Current Diagnoses Impingement syndrome of left shoulder (08/07/18) Other intraoperative and postprocedural complications and disorders of the musculoskeletal system (08/07/18) Physical Therapy Progress Note PT-OP-A Visit Information Start: 05/14/18 16:14 Freq: Status: Active Protocol: Document 08/07/18 11:29 LRN (Rec: 08/07/18 14:43 LRN [id number]) Out-Patient Physical Therapy Visit Information Visit Information Visit Type Progress Note Visit Start Time 11:29 Visit Stop Time 12:10 Total Visit Minutes 41 Visit Number 11 Evaluation Information Evaluation Date 05/15/18 PT-OP-B Current Condition Start: 05/14/18 16:14 Freq: Status: Active Protocol: Document 05/15/18 12:47 LRN (Rec: 05/15/18 13:30 LRN [id number]) Current Condition History of Current Condition Onset Date 04/26/2018 Current Complaints No significant pain, occasional with pendulum ex. History of Current Condition Pt is 2 days short of being 3 weeks status post L shoulder, arthroscopic rotator cuff repair of a full tear. The pt reports after his in office surgery he was released home the same day. He has been doing Pendulum exercises as instructed 2 times per day. He states the first few days were the worst, but now he is having very little pain. His primary pain when present is in the posterior aspect of the upper back. He indicates his pain is in the left intrascapular region. Prior Treatments and Tests None Future Testing and Treatments Planned Follow up doctor visit Jun 08, 2018. Treatment Goals Patient/Caregiver Goals Pt goal is to regain use of L arm for functional activities (dressing, cooking, driving). Return to gym activites. Prior Functional Status Baseline Function- ADL's Independent Baseline Function- Mobility Independent Baseline Function- Recreation/Hobbies Gym workouts. Current Functional Impairments (Reported) Functional Limitations- ADL's Dressing, cooking, driving, clean up. Functional Limitations- Work/School Not able to work for [employer]. Functional Limitations- Recreation/ Not able to perform gym Hobbies workouts, carpentry (nailing). Personal Factors Other Personal Factors That May Effect Pt wanting to go to [place] the Therapy/Recovery first july. PT-OP-C Subjective Start: 05/14/18 16:14 Freq: Status: Active Protocol: Document 08/07/18 11:29 LRN (Rec: 08/07/18 14:43 LRN [id number]) OP-PT Subjective Patient Comments Patient Comments L Shoulder ached last week, but has been doing more at the gym, using heavier weights. States he is in a strength tone class, using weights up to 5#. PT-OP-E Functional Tests Start: 05/14/18 16:14 Freq: Status: Active Protocol: Document 05/15/18 12:47 LRN (Rec: 05/15/18 14:50 LRN [id number]) Functional Tests Apley's Scratch Test Action 1: The subject is instructed to touch the opposite shoulder with his/her hand. This motion checks Glenohumeral adduction, internal rotation , horizontal adduction and scapular protraction Action 2: The subject is instructed to place his/her arm overhead and reach behind the neck to touch his/her upper back. This motion checks Glenohumeral abduction, external rotation and scapular upward rotation and elevation. Action 3: The subject puts his/her hand on the lower back and reaches upward as far as possible. This motion checks glenohumeral adduction, internal rotation and scapular retraction with downward rotation Action 1- Right Opposite shoulder Action 2- Right T4 Action 3- Right T10 PT-OP-F Manual Assessment Start: 05/14/18 16:14 Freq: Status: Active Protocol: Document 05/15/18 12:47 LRN (Rec: 05/15/18 14:50 LRN [id number]) Manual Assessments Other Manual Assessments Other Manual Assessments Increased muscle tone of L Upper Trapezius, Supraspinatus , & Rhomboids. PT-OP-H Neuro Start: 05/14/18 16:14 Freq: Status: Active Protocol: Document 05/15/18 12:47 LRN (Rec: 05/15/18 14:50 LRN [id number]) Sensation Evaluation Gross Sensation Gross Sensation WNL PT-OP-J Posture/Palpation/Skin Start: 05/14/18 16:14 Freq: Status: Active Protocol: Document 05/15/18 12:47 LRN (Rec: 05/15/18 14:50 LRN [id number]) Posture Evaluation Comments Posture Comments Standing: Head is level, neck is shifted left, L shoulder is low and retracted, scapula is downwardly rotated and bound to the rib cage, Skin Assessment Incisional Assessment Incision Appearance/Comments Well healed and good mobility. PT-OP-K Range of Motion Start: 05/14/18 16:14 Freq: Status: Active Protocol: Document 08/07/18 11:29 LRN (Rec: 08/07/18 14:45 LRN [id number]) Shoulder Goniometric Range of Motion Shoulder Measured in Degrees Left Active Testing Position Supine Flexion 170 External Rotation at 90 degrees 75 Abduction Left Passive Testing Position Supine Flexion 175 External Rotation at 90 degrees 90 Abduction Internal Rotation 75 PT-OP-M Strength Start: 05/14/18 16:14 Freq: Status: Active Protocol: Document 05/15/18 12:47 LRN (Rec: 05/15/18 14:50 LRN [id number]) Shoulder Strength Shoulder Manual Muscle Testing Left Comments Deferred testing due to s/p surgery restrictions of PROM. Right Reason Not Measured WFL Comments Generally 5/5. PT-OP-T Assessment and Plan Start: 05/14/18 16:14 Freq: Status: Active Protocol: Document 08/07/18 11:29 LRN (Rec: 08/07/18 14:52 LRN [id number]) Physical Therapy Assessment Rehab Potential Rehabilitation Potential Excellent Impairments Impairments Pain ROM Soft Tissue Mobility Strength Other Concerns Age Related Concerns 70+ years old. Goals Three Impairment Decreased strength L shoulder, limited to AROM until 08/17/18 . Marine Animal Trainer Goal (LTG) Pt will be able to lift light objects to assist with cooking , and will be able to drive without pain. LTG Duration 08/17/18 Two Impairment Decreased functional mobility of L shoulder Alf Goal (LTG) Pt will be able to dress without assist LTG Duration 06/21/18 GOAL MET 06/19/18. One Impairment Lacks appropriate HEP Alf Goal (LTG) Pt will be independent in self care HEP. LTG Duration 07/20/2018 Assessment Summary Assessment Pt has normal passive L shoulder ROM with end-range tightness; therefore end-range stretching needed. Pt has been strengthening at home and at a gym and is cautious and fearful of progressing to independence; therefore the pt will be mainly independent the next 2 weeks with addition of prioceptive type ex and CCK weight bearing ex strengthening. The pt is close to being ready for DC to a HEP. Physical Therapy Plan Frequency and Duration Frequency of Treatment 2 weeks Plan of Care Start Date 08/07/18 Plan of Care End Date 08/28/18 Next Visit Focus/Plan Next Note Type Discharge Summary Next Visit Plan Recheck strength, review proprioception ex with handout , educate pt on phase III rehab of strength training avoiding long lever arm and impingement and DC to HEP
--- NOTE | 2018-08-07 14:52 | PT.OPPOC ---
Current Diagnoses Impingement syndrome of left shoulder (08/07/18) Other intraoperative and postprocedural complications and disorders of the musculoskeletal system (08/07/18) Provider Visit Care Team Role Provider Type Patrick Dover MD Family Provider Physician Primary Care Provider Specialty: Family Practice Address: [place], [address] Email: [email or web address] [email or web address] Ybarra MD Attending Provider Physician Specialty: Orthopedic Surgery Address: [address] [place] [address], [id number] Email: [email or web address] Plan Of Care PT-OP-T Assessment and Plan Start: 05/14/18 16:14 Freq: Status: Active Protocol: Document 08/07/18 11:29 LRN (Rec: 08/07/18 14:52 LRN [id number]) Physical Therapy Assessment Rehab Potential Rehabilitation Potential Excellent Impairments Impairments Pain ROM Soft Tissue Mobility Strength Other Concerns Age Related Concerns 70+ years old. Goals Three Impairment Decreased strength L shoulder, limited to AROM until 08/17/18 . Halfway Goal (LTG) Pt will be able to lift light objects to assist with cooking , and will be able to drive without pain. LTG Duration 08/17/18 Two Impairment Decreased functional mobility of L shoulder Raise Drill Operator Goal (LTG) Pt will be able to dress without assist LTG Duration 06/21/18 GOAL MET 06/19/18. One Impairment Lacks appropriate HEP Halfway Goal (LTG) Pt will be independent in self care HEP. LTG Duration 07/20/2018 Assessment Summary Assessment Pt has normal passive L shoulder ROM with end-range tightness; therefore end-range stretching needed. Pt has been strengthening at home and at a gym and is cautious and fearful of progressing to independence; therefore the pt will be mainly independent the next 2 weeks with addition of prioceptive type ex and CCK weight bearing ex strengthening. The pt is close to being ready for DC to a HEP. Physical Therapy Plan Frequency and Duration Frequency of Treatment 2 weeks Plan of Care Start Date 08/07/18 Plan of Care End Date 08/28/18 Next Visit Focus/Plan Next Note Type Discharge Summary Next Visit Plan Recheck strength, review proprioception ex with handout , educate pt on phase III rehab of strength training avoiding long lever arm and impingement and DC to HEP Plan of Care Dates Plan of Care Start Date 08/07/18 Plan of Care End Date 08/28/18 Please Sign and Return: I have reviewed this Plan of Care and certify that the skilled therapy services above are required to meet the patient?s needs. Physician Signature Date Printed Name and Credentials Clinical Instructor Signature Printed Name and Credentials
--- NOTE | 2018-08-21 14:37 | PT.OTN ---
Current Diagnoses Impingement syndrome of left shoulder (08/21/18) Other intraoperative and postprocedural complications and disorders of the musculoskeletal system (08/21/18) Physical Therapy Treatment Note PT-OP-A Visit Information Start: 05/14/18 16:14 Freq: Status: Active Protocol: Document 08/21/18 10:32 LRN (Rec: 08/21/18 11:23 LRN [id number]) Out-Patient Physical Therapy Visit Information Visit Information Visit Type Discharge Summary Visit Start Time 10:32 Visit Stop Time 11:30 Total Visit Minutes 58 Visit Number 12 Number of EXPORT FREIGHT CLERK Visits 0 Evaluation Information Evaluation Date 05/15/18 PT-OP-B Current Condition Start: 05/14/18 16:14 Freq: Status: Active Protocol: Document 05/15/18 12:47 LRN (Rec: 05/15/18 13:30 LRN [id number]) Current Condition History of Current Condition Onset Date 04/26/2018 Current Complaints No significant pain, occasional with pendulum ex. History of Current Condition Pt is 2 days short of being 3 weeks status post L shoulder, arthroscopic rotator cuff repair of a full tear. The pt reports after his in office surgery he was released home the same day. He has been doing Pendulum exercises as instructed 2 times per day. He states the first few days were the worst, but now he is having very little pain. His primary pain when present is in the posterior aspect of the upper back. He indicates his pain is in the left intrascapular region. Prior Treatments and Tests None Future Testing and Treatments Planned Follow up doctor visit Jun 08, 2018. Treatment Goals Patient/Caregiver Goals Pt goal is to regain use of L arm for functional activities (dressing, cooking, driving). Return to gym activites. Prior Functional Status Baseline Function- ADL's Independent Baseline Function- Mobility Independent Baseline Function- Recreation/Hobbies Gym workouts. Current Functional Impairments (Reported) Functional Limitations- ADL's Dressing, cooking, driving, clean up. Functional Limitations- Work/School Not able to work for [employer]. Functional Limitations- Recreation/ Not able to perform gym Hobbies workouts, carpentry (nailing). Personal Factors Other Personal Factors That May Effect Pt wanting to go to [place] the Therapy/Recovery first july. PT-OP-C Subjective Start: 05/14/18 16:14 Freq: Status: Active Protocol: Document 08/21/18 10:32 LRN (Rec: 08/21/18 11:23 LRN [id number]) OP-PT Subjective Patient Comments Patient Comments [address] Ybarra and he released him. Exercising daily at the gym with light weights. A little sore afterwards so icing it. Feels he is still weak. Digging for clams and got sore, no pain. Patient Questionnaires Neck Disability Index NDI Score 1 Neck Disability Index Impairment 1 to 19% Impaired (Score 1-9) Quick Dash- Upper Extremity Quick Dash UE Score 6.81 Quick Dash UE Impairment 1 to 19% Impaired (Score 1-19) OP-PT Pain Assessment Location Left Upper Shoulder Pain Location Details Subacromial Intensity 2 Scale Used Numeric (1 - 10) Description Aching Frequency Intermittent Pain Aggravating Factors Exercise Pain Alleviating Factors Cold Inactivity PT-OP-E Functional Tests Start: 05/14/18 16:14 Freq: Status: Active Protocol: Document 08/21/18 10:32 LRN (Rec: 08/21/18 14:15 LRN [id number]) Functional Tests Apley's Scratch Test Action 1: The subject is instructed to touch the opposite shoulder with his/her hand. This motion checks Glenohumeral adduction, internal rotation , horizontal adduction and scapular protraction Action 2: The subject is instructed to place his/her arm overhead and reach behind the neck to touch his/her upper back. This motion checks Glenohumeral abduction, external rotation and scapular upward rotation and elevation. Action 3: The subject puts his/her hand on the lower back and reaches upward as far as possible. This motion checks glenohumeral adduction, internal rotation and scapular retraction with downward rotation Action 2- Left T1 Action 2- Right T1 Action 3- Left L1 Action 3- Right L1 PT-OP-F Manual Assessment Start: 05/14/18 16:14 Freq: Status: Active Protocol: Document 05/15/18 12:47 LRN (Rec: 05/15/18 14:50 LRN [id number]) Manual Assessments Other Manual Assessments Other Manual Assessments Increased muscle tone of L Upper Trapezius, Supraspinatus , & Rhomboids. PT-OP-H Neuro Start: 05/14/18 16:14 Freq: Status: Active Protocol: Document 05/15/18 12:47 LRN (Rec: 05/15/18 14:50 LRN [id number]) Sensation Evaluation Gross Sensation Gross Sensation WNL PT-OP-J Posture/Palpation/Skin Start: 05/14/18 16:14 Freq: Status: Active Protocol: Document 05/15/18 12:47 LRN (Rec: 05/15/18 14:50 LRN [id number]) Posture Evaluation Comments Posture Comments Standing: Head is level, neck is shifted left, L shoulder is low and retracted, scapula is downwardly rotated and bound to the rib cage, Skin Assessment Incisional Assessment Incision Appearance/Comments Well healed and good mobility. PT-OP-K Range of Motion Start: 05/14/18 16:14 Freq: Status: Active Protocol: Document 08/21/18 10:32 LRN (Rec: 08/21/18 11:23 LRN [id number]) Shoulder Goniometric Range of Motion Shoulder Measured in Degrees Left Active Testing Position Standing Flexion 155 Abduction 163 External Rotation at 90 degrees 90 Abduction Internal Rotation 65 Internal Rotation Behind Back (text) L 1 Left Passive Testing Position Sitting Flexion 175 Abduction 180 External Rotation at 90 degrees 92 Abduction Internal Rotation 75 Right Active Testing Position Sitting Flexion 180 External Rotation at 90 degrees 100 Abduction Internal Rotation 75 Internal Rotation Behind Back (text) L1 Shoulder ROM Limitations Comments R shoulder PROM: ER is 113 deg 's. PT-OP-M Strength Start: 05/14/18 16:14 Freq: Status: Active Protocol: Document 08/21/18 10:32 LRN (Rec: 08/21/18 11:23 LRN [id number]) Shoulder Strength Shoulder Manual Muscle Testing Left Flexion 4+ Good+ Extension 5 Normal Abduction (C5) 4- Good- Adduction 4+ Good+ External Rotation 4- Good- Internal Rotation 5 Normal Horizontal Abduction 4+ Good+ Horizontal Adduction 4- Good- Right Comments 5/5 with all motions. PT-OP-Q Treatments Start: 05/14/18 16:14 Freq: Status: Active Protocol: Document 08/21/18 10:32 LRN (Rec: 08/21/18 11:23 LRN [id number]) Therapeutic Exercises Supine Exercises Shoulder IR Supine Exercise Name Passive/Active IR stretch with arm in 90 deg's AB Side left Reps/Minutes 6' Comments ROM taken Shoulder ER Supine Exercise Name Passive/Active ER stretch with arm in 90 deg's AB Side left Reps/Minutes 4' Comments ROM taken Shoulder Flex Supine Exercise Name End-range stretch Side bilateral Reps/Minutes 5 Comments ROM taken Sitting Exercises Shoulder ext, AD, horiz AB/AD Sitting Exercise Name Shoulder ext, AD, horiz AB/AD Comments MMT taken Shoulder ER/IR Sitting Exercise Name ER/IR Side right Comments MMT assessment Shoulder AB Sitting Exercise Name Active & Po Passively Side right Comments AROM & PROM & MMT taken Passive shoulder flex Sitting Exercise Name Flex with Po Side right Equipment Used Po Reps/Minutes 3' Comments ROM and MMT taken Standing Exercises Shoulder Horizontal AD Standing Exercise Name Shoulder Horiz AD Side left Resistance Lev 2 & None Equipment Used T-Band Shoulder AD Standing Exercise Name Shoulder AD Side bilateral Resistance Lev 1, 2 Equipment Used T-Band Shoulder ER/IR Standing Exercise Name Review of ER strengthening Shoulder Depression Side bilateral Comments Much training & Physical cuing assist needed. Intrascapular strengthening Standing Exercise Name Scapular downward rotation with retraction Side bilateral Equipment Used TB Lv 1 Self-Care/Home Management Treatment Education Patient Education Home Exercise Program Activities Self-Care/Home Management Activities Pt instructed in HEP of L shoulder AD (scapular downward rotation with retraction & horiz AD). PT-OP-R Modalities Start: 05/14/18 16:14 Freq: Status: Active Protocol: Document 08/21/18 10:32 LRN (Rec: 08/21/18 14:12 LRN [id number]) Hot Pack/Cold Pack Treatment Cold Pack Location L shoulder Patient Position Sitting Treatment Duration (minutes) 10 PT-OP-T Assessment and Plan Start: 05/14/18 16:14 Freq: Status: Active Protocol: Document 08/21/18 10:32 LRN (Rec: 08/21/18 11:23 LRN [id number]) Physical Therapy Assessment Goals Three Impairment Decreased strength L shoulder, limited to AROM until 08/17/18 . Inventory Accountant Goal (LTG) Pt will be able to lift light objects to assist with cooking , and will be able to drive without pain. LTG Duration 08/17/18 (08/21/18: GOAL MET) Two Impairment Decreased functional mobility of L shoulder Longterm Goal (LTG) Pt will be able to dress without assist LTG Duration 06/21/18 GOAL MET 12/18/18. One Impairment Lacks appropriate HEP Inventory Accountant Goal (LTG) Pt will be independent in self care HEP. LTG Duration 07/20/2018 (08/21/18: GOAL MET) Assessment Summary Assessment Pt has end-range tightness of L shoulder ROM and mild weakness of L shoulder. Pt has been strengthening at home and at a gym and is independent and safe with exercise. Pt is ready for DC to his independent HEP. Physical Therapy Plan Discharge Physical Therapy Discharge Reasons Goals Met Discharge Comments Thank you for your referral.
== END 2019-01-25 15:33 | disposition home or self-care (01) ==
LOC: PHYS 10:30
PROVIDERS: Family Provider Family Medicine; PCP Family Medicine; Visit Provider Orthopaedic Surgery
DX: M96.89 Other intraoperative and postprocedural complications and disorders of the musculoskeletal system (principal); M75.42 Impingement syndrome of left shoulder
CPT/HCPCS: 97110; 97140; 97161

== ENCOUNTER → 2022-01-07 11:18 | Outpatient (CLI) | payer MEDICARE, OTHER, SELFPAY ==
[2022-01-07 14:22] LABS: COVID19 -Nasal RAPID Negative (Negative)
== END ==
PROVIDERS: Family Provider Family Medicine; PCP Family Medicine; Visit Provider Surgery
DX: Z20.822 Contact with and (suspected) exposure to COVID-19 (principal); Z01.812 Encounter for preprocedural laboratory examination
CPT/HCPCS: 87635; C9803

== ENCOUNTER 2022-01-10 07:00 | Day surgery (SDC) | payer MEDICARE, OTHER, SELFPAY ==
--- NOTE | 2022-01-10 | PATH_ITS ---
[facility] Accession Number: [id number] . 01 Material submitted: . colon - ASCENDING COLON POLYP . 01 Diagnosis: Ascending Colon, Polyp, Biopsy: Tubular adenoma. [facility] [place] 01/11/2022 1240 Local . 01 Electronically signed: . Cande Chapin MD, Pathologist NPI- [id number] . 01 Gross description: . ASCENDING COLON POLYP: Received in formalin is 1 fragment(s) of prajapati, soft tissue measuring 0.3 x 0.1 x 0.1 cm submitted entirely in 1 cassette(s) /CLAUDIA 01/10/2022 2207 Local . 01 Pathologist provided ICD-10: D12.2 . 01 CPT . 674159 Specimen Comment: A courtesy copy of this report has been sent to [phone] Performed at: 01 [facility] [address] [place] [id number] MD Atif Pandya MD Phone: [phone]
[2022-01-10 07:21] VITALS: BP 121/73; PULSE 61; RESP 18; TEMP 36.5; O2SAT 97; BMI 25.0
[2022-01-10] MEDS: SODIUM CHLORIDE 0.9% 1,000 ML 150 ML IV (07:32)
--- NOTE | 2022-01-10 07:50 | PM.HP.1 ---
History of Present Illness History of Present Illness Date Patient Seen: 01/10/22 Time Patient Seen: 07:57 Chief complaint: SDC Narrative: Personal history of colon polyps Patient History Medical History Rotator cuff tear, left Family & Social History Social History: household members spouse Tobacco & Substance use: Smoking Status Former smoker alcohol intake frequency a few times a week Substance Use Type does not use Meds Home Medications and Allergies Home Medications Medication Instructions Recorded Confirmed Type atorvastatin 40 mg tablet 40 tab PO DAILY 01/10/22 01/10/22 History citalopram 40 mg tablet 40 tab PO DAILY 01/10/22 01/10/22 History vit C 250 mg-vit E 90 mg-zinc 40 1 tab PO DAILY 01/10/22 01/10/22 History mg-copper 1 [id number] capsule (PreserVision AREDS-2) Allergies Allergy/AdvReac Type Severity Reaction Status Date / Time No Known Drug Allergies Allergy Verified 01/10/22 07:18 Review of Systems Review of Systems ROS: Yes All systems reviewed with the patient and are negative except as otherwise documented Exam Vital Signs (past 8 hours): - 01/10/22 07:21 Temperature 97.7 F Pulse Rate 61 Respiratory Rate 18 Blood Pressure 121/73 Pulse Oximetry 97 Oxygen Delivery Method Room Air Oxygen Delivery Method Room Air Const General: cooperative HENMT Head: normal to inspection Eyes General: appearance normal, both eyes and all related structures Neck Neck: normal visual inspection Chest Chest: normal inspection of the chest Resp Effort & Inspection: normal respiratory effort Cardio Rate: regular rate GI Inspection: normal to inspection Skin General: no rashes or lesions noted Neuro General: patient alert and patient awake Extrem General: normal to inspection and no pedal edema Psych Appearance: grossly normal Assessment & Plan Assessment & Plan narrative: 76-year-old with a personal history of colon polyps. Colonoscopy is planned for today. Time Spent With Patient Critical Care time: I spent a total of [] minutes of critical care time on this patient's care today; this time is exclusive of procedural time.
--- NOTE | 2022-01-10 07:58 | PM.PREOP ---
Pre-operative Note COVID-19 COVID-19 status: Negative Result date/Date tested (Pos, Neg/Pending): 01/07/22 Criteria for continued procedure: Possibility delay results in more complex future surgery or treatment Interval Note History & Physical reviewed/Exam performed by Physician: Yes Changes to H&P: No ASA Class (for procedural sedation): II
--- NOTE | 2022-01-10 08:24 | PM.OP.COLON ---
Operative Date/Time/Diagnoses Date of procedure: 01/10/22 Time of procedure: 08:24 Pre-op diagnosis: Colon polyp history Post-op diagnosis: same Procedure & Clinicians Study performed: Colonoscopy with cold forceps polypectomy Same procedure as scheduled: Yes Indications: Colon polyp history Surgeon: Julio Cesar Richards Procedure Notes SCOAP/Timeout: Done Procedure in detail: After the risks and benefits were explained, written and verbal informed consent was obtained. The patient was brought into the procedure room and placed into the left lateral decubitus position. Conscious sedation medication was applied as per nursing documentation. Digital rectal examination was accomplished. The scope was introduced into the patient and advanced under direct visualization to the cecum as identified by the appendiceal orifice and ileocecal valve. The scope was slowly withdrawn to carefully examine the mucosa for any defects or lesions. Comprehensive imaging was accomplished throughout the rectum including the dentate line. The colon was decompressed, the scope was then removed from the patient who tolerated the procedure well. Adult colonoscope Bowel prep adequate Scope withdrawal time: 8 minutes Sedation minutes: 18 Complications: none Impression: Mild internal hemorrhoids grade 1 were noted. There was a diminutive 3-4 mm polyp in the ascending colon removed with cold forceps. No additional pathology was encountered throughout. Endoscopic diagnosis 1. Grade 1 hemorrhoids 2. Small colon polyp Post-procedure Plan for aftercare: 1. Await histopathology. 2. Follow-up in primary care as before. Disposition: PACU
[2022-01-10 08:27] VITALS: BP 99/65; PULSE 79; RESP 19; TEMP 36.2; O2SAT 95
[2022-01-10 08:30] VITALS: BP 101/65; PULSE 82; RESP 17; TEMP 36.7; O2SAT 95
[2022-01-10 08:42] VITALS: BP 115/67; PULSE 80; RESP 18; TEMP 36.1; O2SAT 95
== END 2022-01-10 08:51 | disposition home or self-care (01) ==
PROVIDERS: Family Provider Family Medicine; PCP Family Medicine; Referring Provider Internal Medicine Gastroenterology; Visit Provider Internal Medicine Gastroenterology
PROC: 0DJD8ZZ Inspection of Lower Intestinal Tract, Via Natural or Artificial Opening Endoscopic (ICD-10-PCS; CPT 45378; principal; 2022-01-10 08:00)
DX: Z12.11 Encounter for screening for malignant neoplasm of colon (principal); Z86.010 Personal history of colon polyps; K64.0 First degree hemorrhoids; D12.2 Benign neoplasm of ascending colon
CPT/HCPCS: 45380; J2704

== ENCOUNTER → 2022-09-14 08:37 | Outpatient (CLI) | payer MEDICARE, OTHER, SELFPAY ==
--- NOTE | 2022-09-14 | DI.MRI.S_ITS ---
PROCEDURE: MR SHOULDER RT WO CON INDICATIONS: Pain in right shoulder TECHNIQUE: Noncontrast oblique coronal T2 fast spin echo with fat saturation, oblique sagittal T1 spin echo and T2 fast spin echo with fat saturation, axial T1 spin echo and T2 fast spin echo with fat saturation through the shoulder. COMPARISON: [facility], MR, MR SHOULDER LT WO CON, 01/23/2018, 7:04. FINDINGS: Image quality: Excellent. Rotator cuff: Moderate grade articular and bursal surface partial thickness tear involving distal supraspinatus at its insertion on the humeral head is seen extending to musculotendinous junction. Full-thickness rupture involving most anterior fibers of distal supraspinatus at its insertion on the humeral head is seen with up to 2.2 cm medial retraction of torn tendon fibers and a fluid-filled gap measures 8 millimeter in AP dimension. Distal infraspinatus tendinosis is seen. Moderate grade intrasubstance partial-thickness tear involving distal subscapularis is noted. Sagittal images demonstrate no significant rotator cuff muscle atrophy. Bones and bursae: Postsurgical changes are noted involving anterior aspect of humeral head adjacent to bicipital groove. Mild to moderate glenohumeral joint osteoarthritic changes are seen with joint space narrowing and subchondral sclerosis. Postsurgical widening of acromioclavicular joint is noted. Moderate amount of subacromial subdeltoid bursal fluid is seen. No gross loose bodies. Capsule and soft tissues: There is no definite focal labral tear. Proximal intra-articular portion of long head of biceps tendon is not visualized suggestive of prior tenodesis. The rotator interval appears normal, without fibrosis. The coracohumeral ligament is normal in thickness. IMPRESSION: 1. Focal full-thickness rupture involving most anterior fibers of distal supraspinatus at its insertion on the humeral head with up to 2.2 cm medial retraction of torn tendon fibers and a fluid-filled gap measures 8 mm in AP dimension. Moderate grade articular and bursal surface partial-thickness tear involving rest of the supraspinatus tendon extending to musculotendinous junction. Distal infraspinatus tendinosis. Low to moderate grade intrasubstance partial-thickness tear involving distal subscapularis. 2. Postsurgical changes in anterior aspect of humeral head. Likely postsurgical widening of acromioclavicular joint. Mild to moderate glenohumeral joint osteoarthritis. No acute fracture or dislocation. Moderate amount of subacromial subdeltoid bursal fluid. No gross loose bodies. 3. No definite focal labral tear. 4. Suggestion of prior proximal long head of biceps tenodesis. Visualized portion of biceps tendon is intact along anterior aspect of proximal humerus. Dictated by: Ministerio Cooper M.D. on 09/14/2022 at 10:49 Approved by: Ministerio Cooper M.D. on 09/14/2022 at 16:44
== END ==
PROVIDERS: Family Provider Family Medicine; PCP Family Medicine; Referring Provider Orthopaedic Surgery; Visit Provider Orthopaedic Surgery
DX: M75.121 Complete rotator cuff tear or rupture of right shoulder, not specified as traumatic (principal); M19.011 Primary osteoarthritis, right shoulder; M25.511 Pain in right shoulder
CPT/HCPCS: 73221

== ENCOUNTER → 2023-07-27 09:05 | Outpatient (CLI) | payer MEDICARE, OTHER, SELFPAY | LOC: PHYS 09:06 | PROVIDERS: Family Provider Family Medicine; PCP Family Medicine; Referring Provider Family Medicine; Visit Provider Family Medicine | DX: R20.0 Anesthesia of skin (principal) | CPT/HCPCS: 95885; 95886; 95913 ==

== ENCOUNTER 2023-09-19 11:15 | Outpatient (RCR) | payer MEDICARE, OTHER, SELFPAY ==
--- NOTE | 2023-08-22 16:52 | PT.OIE ---
Current Diagnoses Unspecified rotator cuff tear or rupture of left shoulder, not specified as traumatic (08/22/23) Past Medical History (Last Reviewed 01/10/22 @ 07:57 by Julio Cesar Richards MD) Rotator cuff tear, left Visit Care Team Role Provider Type Patrick Dover MD Family Provider Physician Primary Care Provider Specialty: Family Practice Address: [address] [place] [address], [facility] [place], [address] Email: [email or web address] Doni Jauregui MD Attending Provider Physician Referring Provider Specialty: Orthopedics Orthopedic Surgery Address: [address] [place] [address], [id number] Email: [email or web address] [facility] Initial Evaluation PT-OP-A Visit Information Start: 08/11/23 19:41 Freq: Status: Active Protocol: Document 08/22/23 11:20 LRN (Rec: 08/22/23 12:04 LRN [id number]) Out-Patient Physical Therapy Visit Information Visit Information Visit Type Initial Evaluation Visit Start Time 11:20 Visit Stop Time 12:01 Visit Number 1 Evaluation Information Evaluation Date 08/22/23 Precautions Precautions No lifing weights overhead. History of neck pain for past 10 yrs. PT-OP-B Current Condition Start: 08/11/23 19:41 Freq: Status: Active Protocol: Document 08/22/23 11:20 LRN (Rec: 08/22/23 12:04 LRN [id number]) Current Condition History of Current Condition Onset Date May 2023. Current Complaints L shoulder mild jt pain rated 2/10. History of Current Condition Dislocated L shoulder May 2023 while in [facility] (fell and tripped over escalator) and had MRI (showed no soft tissue injury). Did 2 PT sessions in [place] before returning home in July 2023. Saw Dr[address] Jauregui who gave him a cortisone injection (07/19/23) and gave referral for PT. He states his pain decreased considerably (from 7/10 to 2/ 10) after injection. Was told not to lift overhead by Nadine FLORES and Dr. Jauregui. Prior Treatments and Tests 2 PT visits while in [facility] and had MRI done. Cortisone injection 07/2023. Future Testing and Treatments Planned No further MD follow up visits . Treatment Goals Patient/Caregiver Goals Pt goal: Get more flexibility to be able to exercise (with weights) and strengthen the L shoulder to not injury the shoulder. Personal Factors Other Personal Factors That May Effect Theron RCT repair (R 10 yrs ago, Therapy/Recovery L one year ago). Carpel tunnel syndrome bilaterally (R more severe than L). Precaution: No lifting weights overhead. PT-OP-C Subjective Start: 08/11/23 19:41 Freq: Status: Active Protocol: Document 08/22/23 11:20 LRN (Rec: 08/22/23 15:54 LRN [id number]) Patient Questionnaires Quick Dash- Upper Extremity Quick Dash UE Score 11.36 Quick Dash UE Impairment 1 to 19% Impaired (Score 1-19) OP-PT Pain Assessment Pain Assessment Grid Paper Pain Assessment Grid Completed Yes Location L shoulder Pain Location Details Generally around and in L shoulder GHJ Intensity 2 Scale Used Numeric (0 - 10) Description Aching Description- Other Sore PT-OP-E Functional Tests Start: 08/11/23 19:41 Freq: Status: Active Protocol: Document 08/22/23 11:20 LRN (Rec: 08/22/23 16:48 LRN [id number]) Functional Tests Apley's Scratch Test Action 1- Left Spine of scapula Action 1- Right Spine of scapula Action 2- Left Between T1-T2 Action 2- Right Between T2-T3 Action 3- Left T8 Action 3- Right T10 PT-OP-F Manual Assessment Start: 08/11/23 19:41 Freq: Status: Active Protocol: Document 08/22/23 11:20 LRN (Rec: 08/22/23 12:04 LRN [id number]) Manual Assessments Soft Tissue Assessment Soft Tissue Mobility Assessment Visible and palpable atrophy of Left: Pectoralis Minor & Major, Deltoids, UT, Supraspinatus, Infraspinatus, Teres Major & Teres Minor. Joint Mobility Assessment Joint Mobility Assessment Deferred, unknown direction of dislocation of L shoulder. PT-OP-J Posture/Palpation/Skin Start: 08/11/23 19:41 Freq: Status: Active Protocol: Document 08/22/23 11:20 LRN (Rec: 08/22/23 12:04 LRN [id number]) Posture Evaluation Position Standing Head/C-Spine Posture Forward Head Shoulder Posture (L) Forward Shoulder Subluxation Degree (L) 1 Finger wide Scapula Posture (L) Rotated Down,(L) Depressed Knee Posture (L) Genu Varus,(R) Genu Varus Palpation Assessment Location L shoulder Palpation Location Anterior and posterior acromion process Palpation Findings Spasm,Tenderness Palpation Details No other c/o pain at left shoulder. PT-OP-K Range of Motion Start: 08/11/23 19:41 Freq: Status: Active Protocol: Document 08/22/23 11:20 LRN (Rec: 08/22/23 12:04 LRN [id number]) Shoulder Goniometric Range of Motion Shoulder Right Active Shoulder ROM WFL Yes Testing Position Sitting Flexion 157 Extension 62 Abduction 180 Comments Functional reach distance: R Horz AD- below spine of scapula. Behind head- between T2-T3. Behind back: R T10 . Left Active Shoulder ROM WFL No Testing Position Sitting Flexion 157 Extension 58 Abduction 150 Comments Functional reach distances: L Horz AD - Spine of scapula. Behind head - between T1-T2. Behind back: L T8. PT-OP-M Strength Start: 08/11/23 19:41 Freq: Status: Active Protocol: Document 08/22/23 11:20 LRN (Rec: 08/22/23 12:04 LRN [id number]) Shoulder Strength Shoulder Manual Muscle Testing Left Flexion 4 Good Abduction (C5) 4+ Good+ External Rotation 4+ Good+ Comments Strength is 5/5 except as indicated above (limited by discomfort) Right Comments Strength is 5/5. PT-OP-Q Treatments Start: 08/11/23 19:41 Freq: Status: Active Protocol: Document 08/22/23 11:20 LRN (Rec: 08/22/23 12:04 LRN [id number]) Self-Care/Home Management Treatment Education Patient Education Home Exercise Program Other Education Discussed results of evaluation, goals, and plan of care (POC). Pt agreeable to goals and POC. Activities Self-Care/Home Management Activities Review of pt's precaution and instructions to continue with his current exercise program if it is not causing more pain and to follow precautions given to him of not lifting weights overhead. PT-OP-T Assessment and Plan Start: 08/11/23 19:41 Freq: Status: Active Protocol: Document 08/22/23 11:20 LRN (Rec: 08/22/23 12:04 LRN [id number]) Physical Therapy Assessment Rehab Potential Rehabilitation Potential Good Evaluation Complexity Number of Personal Factors/Comorbidities 1-2 Number of Body Systems Impaired 3 Clinical Presentation at Evaluation Stable Impairments Impairments Pain,ROM,Strength Goals Two Impairment Decreased L shoulder mobility, limited by pain rated 2/10 Short Term Goal (STG) Decrease L shoulder pain to 0- 1/10. STG Duration 4 wks-09/22/23 [facility] Goal (LTG) Pt will improve L shoulder flexibility to be able to exercise (with weights) without fear of hurting L shoulder (understanding exercise limitations). LTG Duration 8 wks-10/20/23 One Impairment HEP Short Term Goal (STG) Pt will be educated in self care management techniques. 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 LTG Duration 8 wks-10/20/23 Assessment Summary Assessment Pt is a 78 yo male who is s/p L shoulder dislocation (05/25) with subsequent cortisone injection 07/19/23 and lingering diffuse joint pain rated 2/10. He had a + response to the cortisone injection with reduction of pain from 7/10 to 2/10. He has been doing workouts at the gym that does not seem to be increasing his pain. His L shoulder AROM is good, except he has a slight decrease in mobility with horizontal AB when reaching behind the opposite shoulder. He demonstrates mild L shoulder weakness with Flex, AB & ER ( limited due to pain) and obvious atrophy of muscle groups of the scapular stabilizers, rotator cuff and neck (upper trap) muscles. He would benefit from skilled physical therapy to achieve the above stated goals and to educate the pt in self care for pain management techniques . . Physical Therapy Plan Frequency and Duration Frequency of Treatment 2x/Week Duration of treatment (weeks) 8 Plan of Care Start Date 08/22/23 Plan of Care End Date 10/20/23 Therapeutic Interventions Therapeutic Interventions Home Exercise Program,Manual Therapy,Self-Care/Home Management,Taping,Therapeutic Activities,Therapeutic Exercises Modalities Cold Pack/Ice Massage,Electric Stimulation,Hot Packs Next Visit Focus/Plan Next Note Type Treatment Note Next Visit Plan Next: Assess elbow & Cervical strength and if concerns, AROM. General aerobic ex ( UBE), f/b L shoulder strengthening (Flex/AB/ER; UT, Supraspinatus, adductors, pecs, Deltoids, Infraspinatus/ Teres Robby & Minor). Check for weakness of Lat Dorsi ( cautiously in case of inferior dislocation) and subscapularis. END: Modality to decrease pain ( MH/EStim). ROM: Improve horiz AD ROM as tolerated. HEP: Strengthening ex's of weak muscles. When pt feels confident of HEP, DC to indep home program.
--- NOTE | 2023-08-22 16:53 | PT.OPPOC ---
Physical, Occupational & Speech Therapy At [facility] Current Diagnoses Unspecified rotator cuff tear or rupture of left shoulder, not specified as traumatic (08/22/23) Visit Care Team Role Provider Type Patrick Dover MD Family Provider Physician Primary Care Provider Specialty: Family Practice Address: [address] [place] [address], [facility] [place], [address] Email: [email or web address] Doni Jauregui MD Attending Provider Physician Referring Provider Specialty: Orthopedics Orthopedic Surgery Address: [address] [place] [address], [address] Email: [email or web address] Plan Of Care PT-OP-T Assessment and Plan Start: 08/11/23 19:41 Freq: Status: Active Protocol: Document 08/22/23 11:20 LRN (Rec: 08/22/23 12:04 LRN [id number]) Physical Therapy Assessment Rehab Potential Rehabilitation Potential Good Evaluation Complexity Number of Personal Factors/Comorbidities 1-2 Number of Body Systems Impaired 3 Clinical Presentation at Evaluation Stable Impairments Impairments Pain,ROM,Strength Goals Two Impairment Decreased L shoulder mobility, limited by pain rated 2/10 Short Term Goal (STG) Decrease L shoulder pain to 0- 1/10. STG Duration 4 wks-09/22/23 Alf Goal (LTG) Pt will improve L shoulder flexibility to be able to exercise (with weights) without fear of hurting L shoulder (understanding exercise limitations). LTG Duration 8 wks-10/20/23 One Impairment HEP Short Term Goal (STG) Pt will be educated in self care management techniques. 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 LTG Duration 8 wks-10/20/23 Assessment Summary Assessment Pt is a 78 yo male who is s/p L shoulder dislocation (05/25) with subsequent cortisone injection 07/19/23 and lingering diffuse joint pain rated 2/10. He had a + response to the cortisone injection with reduction of pain from 7/10 to 2/10. He has been doing workouts at the gym that does not seem to be increasing his pain. His L shoulder AROM is good, except he has a slight decrease in mobility with horizontal AB when reaching behind the opposite shoulder. He demonstrates mild L shoulder weakness with Flex, AB & ER ( limited due to pain) and obvious atrophy of muscle groups of the scapular stabilizers, rotator cuff and neck (upper trap) muscles. He would benefit from skilled physical therapy to achieve the above stated goals and to educate the pt in self care for pain management techniques . . Physical Therapy Plan Frequency and Duration Frequency of Treatment 2x/Week Duration of treatment (weeks) 8 Plan of Care Start Date 08/22/23 Plan of Care End Date 10/20/23 Therapeutic Interventions Therapeutic Interventions Home Exercise Program,Manual Therapy,Self-Care/Home Management,Taping,Therapeutic Activities,Therapeutic Exercises Modalities Cold Pack/Ice Massage,Electric Stimulation,Hot Packs Next Visit Focus/Plan Next Note Type Treatment Note Next Visit Plan Next: Assess elbow & Cervical strength and if concerns, AROM. General aerobic ex ( UBE), f/b L shoulder strengthening (Flex/AB/ER; UT, Supraspinatus, adductors, pecs, Deltoids, Infraspinatus/ Teres Robby & Minor). Check for weakness of Lat Dorsi ( cautiously in case of inferior dislocation) and subscapularis. END: Modality to decrease pain ( MH/EStim). ROM: Improve horiz AD ROM as tolerated. HEP: Strengthening ex's of weak muscles. When pt feels confident of HEP, DC to indep home program. Plan of Care Dates Plan of Care Start Date 08/22/23 Plan of Care End Date 10/20/23 Electronically Signed by: Nichole Ward, PT 08/22/23 8008 If you are in agreement with this Plan of Care, please return a signed and dated copy. I have reviewed this Plan of Care and certify that the skilled therapy services above are required to meet the patient?s needs. Physician Signature Date Printed Name and Credentials Clinical Instructor Signature Printed Name and Credentials
--- NOTE | 2023-08-24 12:25 | PT.OTN ---
Current Diagnoses Unspecified rotator cuff tear or rupture of left shoulder, not specified as traumatic (08/24/23) Physical Therapy Treatment Note PT-OP-A Visit Information Start: 08/11/23 19:41 Freq: Status: Active Protocol: Document 08/24/23 11:21 LRN (Rec: 08/24/23 12:23 LRN [id number]) Out-Patient Physical Therapy Visit Information Visit Information Visit Type Treatment Note Visit Start Time 11:21 Visit Stop Time 12:10 Visit Number 2 Evaluation Information Evaluation Date 08/22/23 Precautions Precautions No lifing weights overhead. History of neck pain for past 10 yrs. PT-OP-B Current Condition Start: 08/11/23 19:41 Freq: Status: Active Protocol: Document 08/22/23 11:20 LRN (Rec: 08/22/23 12:04 LRN [id number]) Current Condition History of Current Condition Onset Date May 2023. Current Complaints L shoulder mild jt pain rated 2/10. History of Current Condition Dislocated L shoulder May 2023 while in [facility] (fell and tripped over escalator) and had MRI (showed no soft tissue injury). Did 2 PT sessions in [place] before returning home in July 2023. Saw Dr[address] Jauregui who gave him a cortisone injection (07/19/23) and gave referral for PT. He states his pain decreased considerably (from 7/10 to 2/ 10) after injection. Was told not to lift overhead by Nadine FLORES and Dr. Jauregui. Prior Treatments and Tests 2 PT visits while in [facility] and had MRI done. Cortisone injection 07/2023. Future Testing and Treatments Planned No further MD follow up visits . Treatment Goals Patient/Caregiver Goals Pt goal: Get more flexibility to be able to exercise (with weights) and strengthen the L shoulder to not injury the shoulder. Personal Factors Other Personal Factors That May Effect Theron RCT repair (R 10 yrs ago, Therapy/Recovery L one year ago). Carpel tunnel syndrome bilaterally (R more severe than L). Precaution: No lifting weights overhead. PT-OP-C Subjective Start: 08/11/23 19:41 Freq: Status: Active Protocol: Document 08/24/23 11:21 LRN (Rec: 08/24/23 12:23 LRN [id number]) OP-PT Subjective Patient Comments Patient Comments Shoulder was a little after eval, otherwise doing good. Did lower body work out today (switches back and forth). L shoulder pain is 1/10 to start . PT-OP-E Functional Tests Start: 08/11/23 19:41 Freq: Status: Active Protocol: Document 08/22/23 11:20 LRN (Rec: 08/22/23 16:48 LRN [id number]) Functional Tests Apley's Scratch Test Action 1- Left Spine of scapula Action 1- Right Spine of scapula Action 2- Left Between T1-T2 Action 2- Right Between T2-T3 Action 3- Left T8 Action 3- Right T10 PT-OP-F Manual Assessment Start: 08/11/23 19:41 Freq: Status: Active Protocol: Document 08/22/23 11:20 LRN (Rec: 08/22/23 12:04 LRN [id number]) Manual Assessments Soft Tissue Assessment Soft Tissue Mobility Assessment Visible and palpable atrophy of Left: Pectoralis Minor & Major, Deltoids, UT, Supraspinatus, Infraspinatus, Teres Major & Teres Minor. Joint Mobility Assessment Joint Mobility Assessment Deferred, unknown direction of dislocation of L shoulder. PT-OP-J Posture/Palpation/Skin Start: 08/11/23 19:41 Freq: Status: Active Protocol: Document 08/22/23 11:20 LRN (Rec: 08/22/23 12:04 LRN [id number]) Posture Evaluation Position Standing Head/C-Spine Posture Forward Head Shoulder Posture (L) Forward Shoulder Subluxation Degree (L) 1 Finger wide Scapula Posture (L) Rotated Down,(L) Depressed Knee Posture (L) Genu Varus,(R) Genu Varus Palpation Assessment Location L shoulder Palpation Location Anterior and posterior acromion process Palpation Findings Spasm,Tenderness Palpation Details No other c/o pain at left shoulder. PT-OP-K Range of Motion Start: 08/11/23 19:41 Freq: Status: Active Protocol: Document 08/22/23 11:20 LRN (Rec: 08/22/23 12:04 LRN [id number]) Shoulder Goniometric Range of Motion Shoulder Right Active Shoulder ROM WFL Yes Testing Position Sitting Flexion 157 Extension 62 Abduction 180 Comments Functional reach distance: R Horz AD- below spine of scapula. Behind head- between T2-T3. Behind back: R T10 . Left Active Shoulder ROM WFL No Testing Position Sitting Flexion 157 Extension 58 Abduction 150 Comments Functional reach distances: L Horz AD - Spine of scapula. Behind head - between T1-T2. Behind back: L T8. PT-OP-M Strength Start: 08/11/23 19:41 Freq: Status: Active Protocol: Document 08/24/23 11:21 LRN (Rec: 08/24/23 12:25 LRN [id number]) Cervical Spine Strength Cervical Spine Manual Muscle Testing Comments Strength is 5/5 Elbow/Forearm Strength Elbow and Forearm Manual Muscle Testing Right Flexion (C6) 5 Normal Extension (C7) 5 Normal Left Flexion (C6) 5 Normal Extension (C7) 5 Normal PT-OP-Q Treatments Start: 08/11/23 19:41 Freq: Status: Active Protocol: Document 08/24/23 11:21 LRN (Rec: 08/24/23 12:23 LRN [id number]) Cardio Equipment Recumbent Elliptical ([place]oo) Duration (Minutes) 7 Resistance 3 Seat Position 7 Other Xtra time to set up, mainly use of arms, legs to prevent L shoulder pain Therapeutic Exercises Standing Exercises Shoulder AB Standing Exercise Name Supraspinatus/Deltoid: Chicken wing ex Side bilateral Reps/Minutes 10x 3 Comments Much phy & v cuing to move L in symmetry of R (shldr elev, scap retract) Chest Press Standing Exercise Name Chest Press w/focus on hands equal level of mvmt Side bilateral Equipment Used Lev 3 TB Reps/Minutes 10x 2 and 5x. Row Standing Exercise Name Theron & L side for scap retract/ elevation. Reps/Minutes Lev 3 TB Bicep curls Standing Exercise Name Elbow curl Side bilateral Reps/Minutes 10# each, single and double arm curls Comments Much cuing for L scap to retract/depression. Shoulder JHON AD Standing Exercise Name Shldr AD Side bilateral Equipment Used small ball & towel roll under each arm Reps/Minutes 10 SH x 10 each Comments VC to first do scap retract/ depression, 3x for positioning . Self-Care/Home Management Treatment Education Patient Education Home Exercise Program Other Education Discussed and reviewed throughout therapy the pt's exercises that are similar to what he is doing in his gym, with much education in awareness of performing L side equal to R side. Activities Self-Care/Home Management Activities Issued, reviewed, discussed HEP (focus on L side): Scap retract, Jhon shldr AD, Supraspinatus/Deltoid (chicken wing AB), Chest press & Row. Issued Lev 3 TBand. PT-OP-T Assessment and Plan Start: 08/11/23 19:41 Freq: Status: Active Protocol: Document 08/24/23 11:21 LRN (Rec: 08/24/23 12:23 LRN [id number]) Physical Therapy Assessment Goals Two Impairment Decreased L shoulder mobility, limited by pain rated 2/10 Short Term Goal (STG) Decrease L shoulder pain to 0- 1/10. 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 LTG Duration 8 wks-10/20/23 One Impairment HEP Short Term Goal (STG) Pt will be educated in self care management techniques. STG Duration 2 wks-09/08/23 Care Home Goal (LTG) Pt will be independent on a self care HEP of L shoulder/L scapular stabilizer strengthening exercises with pt able to exercise without shoulder injury. 08/24/23: HEP: Scap retract, shoulder AB (supraspinatus/ deltoid), AD, Flex, Ext strengthening. LTG Duration 8 wks-10/20/23 Assessment Summary Assessment Pt is a 78 yo male who is s/p L shoulder dislocation (05/25) , cortisone injection 07/19/23 and lingering diffuse joint pain. R shoulder appears to work harder with exercise. Weak L scap elevation/retract with AB, row; R intrascap ms with ADD. Physical Therapy Plan Frequency and Duration Frequency of Treatment 2x/Week Duration of treatment (weeks) 8 Plan of Care Start Date 08/22/23 Plan of Care End Date 10/20/23 Next Visit Focus/Plan Next Note Type Treatment Note Next Visit Plan Next: Assess elbow & Cervical strength and if concerns, AROM. General aerobic ex ( UBE), f/b L shoulder strengthening (ER; UT, Supraspinatus, adductors-TBand , pecs, Infraspinatus/Teres Robby & Minor). Check for weakness of Lat Dorsi ( cautiously in case of inferior dislocation) and subscapularis. END: Modality to decrease pain if needed ( MH/EStim). ROM: Improve horiz AD ROM as tolerated. HEP: Strengthening ex's of weak muscles. When pt feels confident of HEP, DC to indep home program.
--- NOTE | 2023-08-29 13:48 | PT.OTN ---
Current Diagnoses Unspecified rotator cuff tear or rupture of left shoulder, not specified as traumatic (08/29/23) Physical Therapy Treatment Note PT-OP-A Visit Information Start: 08/11/23 19:41 Freq: Status: Active Protocol: Document 08/29/23 13:04 SP (Rec: 08/29/23 13:53 SP [id number]) Out-Patient Physical Therapy Visit Information Visit Information Visit Type Treatment Note Visit Start Time 13:04 Visit Stop Time 13:48 Visit Number 3 Number of PERMANENT WAVER Visits 1 Evaluation Information Evaluation Date 08/22/23 Precautions Precautions No lifing weights overhead. History of neck pain for past 10 yrs. PT-OP-B Current Condition Start: 08/11/23 19:41 Freq: Status: Active Protocol: Document 08/22/23 11:20 LRN (Rec: 08/22/23 12:04 LRN [id number]) Current Condition History of Current Condition Onset Date May 2023. Current Complaints L shoulder mild jt pain rated 2/10. History of Current Condition Dislocated L shoulder May 2023 while in [facility] (fell and tripped over escalator) and had MRI (showed no soft tissue injury). Did 2 PT sessions in [place] before returning home in July 2023. Saw Dr[address] Jauregui who gave him a cortisone injection (07/19/23) and gave referral for PT. He states his pain decreased considerably (from 7/10 to 2/ 10) after injection. Was told not to lift overhead by Nadine FLORES and Dr. Jauregui. Prior Treatments and Tests 2 PT visits while in [facility] and had MRI done. Cortisone injection 07/2023. Future Testing and Treatments Planned No further MD follow up visits . Treatment Goals Patient/Caregiver Goals Pt goal: Get more flexibility to be able to exercise (with weights) and strengthen the L shoulder to not injury the shoulder. Personal Factors Other Personal Factors That May Effect Theron RCT repair (R 10 yrs ago, Therapy/Recovery L one year ago). Carpel tunnel syndrome bilaterally (R more severe than L). Precaution: No lifting weights overhead. 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 He DC'd deadlift 130-140# barbell for now. He reports his left shld is sore but not painful arrival. PT-OP-E Functional Tests Start: 08/11/23 19:41 Freq: Status: Active Protocol: Document 08/22/23 11:20 LRN (Rec: 08/22/23 16:48 LRN [id number]) Functional Tests Apley's Scratch Test Action 1- Left Spine of scapula Action 1- Right Spine of scapula Action 2- Left Between T1-T2 Action 2- Right Between T2-T3 Action 3- Left T8 Action 3- Right T10 PT-OP-F Manual Assessment Start: 08/11/23 19:41 Freq: Status: Active Protocol: Document 08/22/23 11:20 LRN (Rec: 08/22/23 12:04 LRN [id number]) Manual Assessments Soft Tissue Assessment Soft Tissue Mobility Assessment Visible and palpable atrophy of Left: Pectoralis Minor & Major, Deltoids, UT, Supraspinatus, Infraspinatus, Teres Major & Teres Minor. Joint Mobility Assessment Joint Mobility Assessment Deferred, unknown direction of dislocation of L shoulder. PT-OP-J Posture/Palpation/Skin Start: 08/11/23 19:41 Freq: Status: Active Protocol: Document 08/22/23 11:20 LRN (Rec: 08/22/23 12:04 LRN [id number]) Posture Evaluation Position Standing Head/C-Spine Posture Forward Head Shoulder Posture (L) Forward Shoulder Subluxation Degree (L) 1 Finger wide Scapula Posture (L) Rotated Down,(L) Depressed Knee Posture (L) Genu Varus,(R) Genu Varus Palpation Assessment Location L shoulder Palpation Location Anterior and posterior acromion process Palpation Findings Spasm,Tenderness Palpation Details No other c/o pain at left shoulder. PT-OP-K Range of Motion Start: 08/11/23 19:41 Freq: Status: Active Protocol: Document 08/22/23 11:20 LRN (Rec: 08/22/23 12:04 LRN [id number]) Shoulder Goniometric Range of Motion Shoulder Right Active Shoulder ROM WFL Yes Testing Position Sitting Flexion 157 Extension 62 Abduction 180 Comments Functional reach distance: R Horz AD- below spine of scapula. Behind head- between T2-T3. Behind back: R T10 . Left Active Shoulder ROM WFL No Testing Position Sitting Flexion 157 Extension 58 Abduction 150 Comments Functional reach distances: L Horz AD - Spine of scapula. Behind head - between T1-T2. Behind back: L T8. PT-OP-M Strength Start: 08/11/23 19:41 Freq: Status: Active Protocol: Document 08/24/23 11:21 LRN (Rec: 08/24/23 12:25 LRN [id number]) Cervical Spine Strength Cervical Spine Manual Muscle Testing Comments Strength is 5/5 Elbow/Forearm Strength Elbow and Forearm Manual Muscle Testing Right Flexion (C6) 5 Normal Extension (C7) 5 Normal Left Flexion (C6) 5 Normal Extension (C7) 5 Normal PT-OP-Q Treatments Start: 08/11/23 19:41 Freq: Status: Active Protocol: Document 08/29/23 13:04 SP (Rec: 08/29/23 13:53 SP [id number]) Therapeutic Exercises Supine Exercises chest press Supine Exercise Name trialed Side left Resistance 3# DB Reps/Minutes 5 reps Comments shoulder sore, can't pinpoint where exactly-Hold Sidelying Exercises ER Sidelying Exercise Name added to HEP- provided HO Side left Resistance AROM, 1# DB Equipment Used towel roll under arm Reps/Minutes x10 Comments tactile cue rhomboid and LT fac ABD Sidelying Exercise Name trialed in PT Side left Resistance AAROM Reps/Minutes 8 reps Comments tactile cues for humeral ER and scapular UR into OH AAROM approx 160 deg Standing Exercises Shoulder AB Standing Exercise Name Supraspinatus/Deltoid: Chicken wing ex Side bilateral Reps/Minutes 10x 3 Comments Mod vcuing to move L in symmetry of R (shldr elev, scap retract) Chest Press Standing Exercise Name Chest Press w/focus on hands equal level of mvmt Side bilateral Equipment Used TB Lvl 3>6 painfree (seems little easy), trialed cable 1 plate Reps/Minutes 15 each Comments incre L6 fine, trialed cable caused discomfort ant shld- stopped Row Standing Exercise Name Theron & L side for scap retract/ elevation. Resistance LVL 3>5 (easy)> seated cable 30#>40# Reps/Minutes 2x15 Comments incr cable reports now feels like tiring effort, painfree similar to gym Manual Therapy Treatment Soft Tissue Mobilization L shld Body Location long head bicep, distal pec, distal RTC Mobilization Type Rolling,Sustained Pressure, Other Intensity/Depth Moderate Body Position Supine Comments STMs and sustained pressure with PROM humeral IR/ ER, punching motions with gentle pressure and request feedback painfree. Joint Mobilizations L GH Jt Direction inferior glide Grade II Body Position R SL Comments /c AAROM ABD-pnfree. Cues for slower pacing 90-160 deg and stacked on side alignment L scapulothoracic Direction retraction, depression, UR Grade II Body Position R SL Comments improved scapular rhythm PROM, tactile cues during trial ABD AAROM. Manual Techniques pec stretch Type L Reps/Duration 10 SH x4 reps various angles. Comments good feedback response. Will incorporate next tx for self. PT-OP-T Assessment and Plan Start: 08/11/23 19:41 Freq: Status: Active Protocol: Document 08/29/23 13:04 SP (Rec: 08/29/23 13:53 SP [id number]) Physical Therapy Assessment Goals Two Impairment Decreased L shoulder mobility, limited by pain rated 2/10 Short Term Goal (STG) Decrease L shoulder pain to 0- 1/10. STG Duration 4 wks-09/22/23 Fire Hydrant Operator Goal (LTG) Pt will improve L shoulder flexibility to be able to exercise (with weights) without fear of hurting L shoulder (understanding exercise limitations). LTG Duration 8 wks-10/20/23 One Impairment HEP Short Term Goal (STG) Pt will be educated in self care management techniques. STG Duration 2 wks-09/08/23 Fire Hydrant Operator Goal (LTG) Pt will be independent on a self care HEP of L shoulder/L scapular stabilizer strengthening exercises with pt able to exercise without shoulder injury. 08/24/23: HEP: Scap retract, shoulder AB (supraspinatus/ deltoid), AD, Flex, Ext strengthening. LTG Duration 8 wks-10/20/23 Assessment Summary Assessment Pt responded well to HEP review. Cues for scap retraction/depression, slower pacing during retro resisted activities. He has been resuming lower but higher resistance at gym, provided ed to just stick with exercises for BUEs in PT at this time at gym and can focus more lower body. Pt responded well to tx, felt better with ed just upper body ex doing in PT and will hold off on gym equipment for upperbody. Physical Therapy Plan Frequency and Duration Frequency of Treatment 2x/Week Duration of treatment (weeks) 8 Plan of Care Start Date 08/22/23 Plan of Care End Date 10/20/23 Therapeutic Interventions Therapeutic Interventions Home Exercise Program,Manual Therapy,Self-Care/Home Management,Taping,Therapeutic Activities,Therapeutic Exercises Modalities Cold Pack/Ice Massage,Electric Stimulation,Hot Packs Next Visit Focus/Plan Next Note Type Treatment Note Next Visit Plan recheck ER added, add pec stretch self and progress per POC. Next: Assess elbow & Cervical strength and if concerns, AROM. General aerobic ex (UBE), f/b L shoulder strengthening (ER; UT , Supraspinatus, adductors- TBand, pecs, Infraspinatus/ Teres Robby & Minor). Check for weakness of Lat Dorsi ( cautiously in case of inferior dislocation) and subscapularis. END: Modality to decrease pain if needed ( MH/EStim). ROM: Improve horiz AD ROM as tolerated. HEP: Strengthening ex's of weak muscles. When pt feels confident of HEP, DC to indep home program.
--- NOTE | 2023-09-01 13:43 | PT.OTN ---
Current Diagnoses Unspecified rotator cuff tear or rupture of left shoulder, not specified as traumatic (09/01/23) Physical Therapy Treatment Note PT-OP-A Visit Information Start: 08/11/23 19:41 Freq: Status: Active Protocol: Document 09/01/23 13:03 SP (Rec: 09/01/23 14:49 SP [id number]) Out-Patient Physical Therapy Visit Information Visit Information Visit Type Treatment Note Visit Start Time 13:03 Visit Stop Time 13:43 Visit Number 40 Number of REGIONAL TRAINING MANAGER Visits 2 Evaluation Information Evaluation Date 08/22/23 Precautions Precautions No lifing weights overhead. History of neck pain for past 10 yrs. PT-OP-B Current Condition Start: 08/11/23 19:41 Freq: Status: Active Protocol: Document 08/22/23 11:20 LRN (Rec: 08/22/23 12:04 LRN [id number]) Current Condition History of Current Condition Onset Date May 2023. Current Complaints L shoulder mild jt pain rated 2/10. History of Current Condition Dislocated L shoulder May 2023 while in [facility] (fell and tripped over escalator) and had MRI (showed no soft tissue injury). Did 2 PT sessions in [place] before returning home in July 2023. Saw Dr[address] Jauregui who gave him a cortisone injection (07/19/23) and gave referral for PT. He states his pain decreased considerably (from 7/10 to 2/ 10) after injection. Was told not to lift overhead by Nadine FLORES and Dr. Jauregui. Prior Treatments and Tests 2 PT visits while in [facility] and had MRI done. Cortisone injection 07/2023. Future Testing and Treatments Planned No further MD follow up visits . Treatment Goals Patient/Caregiver Goals Pt goal: Get more flexibility to be able to exercise (with weights) and strengthen the L shoulder to not injury the shoulder. Personal Factors Other Personal Factors That May Effect Theron RCT repair (R 10 yrs ago, Therapy/Recovery L one year ago). Carpel tunnel syndrome bilaterally (R more severe than L). Precaution: No lifting weights overhead. PT-OP-C Subjective Start: 08/11/23 19:41 Freq: Status: Active Protocol: Document 09/01/23 13:03 SP (Rec: 09/01/23 14:49 SP [id number]) OP-PT Subjective Patient Comments Patient Comments Pt reports L shld hurting alot and can't lift out to side now after pushing hard down on garbage lid 2 days ago flew open and little garbage sticking out so pushed it hard closed and with amt resistance caused added L anterior/deltoid region shld pain and now hurting reaching away from side with palm facing ground and unable to lift arm fwd when laying down. He reported reported L shld felt ok no pain after last tx and exercises doing ok and no pain before pushing on garbage can 2 days ago. Has appt with Dr Jauregui Monday. Unable lift L arm off table FF without RUE support after layed down. PT-OP-E Functional Tests Start: 08/11/23 19:41 Freq: Status: Active Protocol: Document 08/22/23 11:20 LRN (Rec: 08/22/23 16:48 LRN [id number]) Functional Tests Apley's Scratch Test Action 1- Left Spine of scapula Action 1- Right Spine of scapula Action 2- Left Between T1-T2 Action 2- Right Between T2-T3 Action 3- Left T8 Action 3- Right T10 PT-OP-F Manual Assessment Start: 08/11/23 19:41 Freq: Status: Active Protocol: Document 08/22/23 11:20 LRN (Rec: 08/22/23 12:04 LRN [id number]) Manual Assessments Soft Tissue Assessment Soft Tissue Mobility Assessment Visible and palpable atrophy of Left: Pectoralis Minor & Major, Deltoids, UT, Supraspinatus, Infraspinatus, Teres Major & Teres Minor. Joint Mobility Assessment Joint Mobility Assessment Deferred, unknown direction of dislocation of L shoulder. PT-OP-J Posture/Palpation/Skin Start: 08/11/23 19:41 Freq: Status: Active Protocol: Document 08/22/23 11:20 LRN (Rec: 08/22/23 12:04 LRN [id number]) Posture Evaluation Position Standing Head/C-Spine Posture Forward Head Shoulder Posture (L) Forward Shoulder Subluxation Degree (L) 1 Finger wide Scapula Posture (L) Rotated Down,(L) Depressed Knee Posture (L) Genu Varus,(R) Genu Varus Palpation Assessment Location L shoulder Palpation Location Anterior and posterior acromion process Palpation Findings Spasm,Tenderness Palpation Details No other c/o pain at left shoulder. PT-OP-K Range of Motion Start: 08/11/23 19:41 Freq: Status: Active Protocol: Document 08/22/23 11:20 LRN (Rec: 08/22/23 12:04 LRN [id number]) Shoulder Goniometric Range of Motion Shoulder Right Active Shoulder ROM WFL Yes Testing Position Sitting Flexion 157 Extension 62 Abduction 180 Comments Functional reach distance: R Horz AD- below spine of scapula. Behind head- between T2-T3. Behind back: R T10 . Left Active Shoulder ROM WFL No Testing Position Sitting Flexion 157 Extension 58 Abduction 150 Comments Functional reach distances: L Horz AD - Spine of scapula. Behind head - between T1-T2. Behind back: L T8. PT-OP-M Strength Start: 08/11/23 19:41 Freq: Status: Active Protocol: Document 08/24/23 11:21 LRN (Rec: 08/24/23 12:25 LRN [id number]) Cervical Spine Strength Cervical Spine Manual Muscle Testing Comments Strength is 5/5 Elbow/Forearm Strength Elbow and Forearm Manual Muscle Testing Right Flexion (C6) 5 Normal Extension (C7) 5 Normal Left Flexion (C6) 5 Normal Extension (C7) 5 Normal PT-OP-Q Treatments Start: 08/11/23 19:41 Freq: Status: Active Protocol: Document 09/01/23 13:03 SP (Rec: 09/01/23 14:49 SP [id number]) Therapeutic Exercises Supine Exercises lat pull down Supine Exercise Name trialed in PT Side bilateral Resistance TB #1 Equipment Used dowel Reps/Minutes x5 reps (ok painfree 45-160 deg FF) Comments painfree OH to approx 45 deg FF, cued slow eccentric FF, pain <45 deg tolap FF Side bilateral Equipment Used 45-165 deg pnfree /c dowel- painfree AROM Reps/Minutes 4 reps x3 sets Comments 0-45 deg causes pain concentric and eccentric FF needs assist IR & ER Supine Exercise Name in PT: 0deg abd, 45 deg abd, 90 deg abd but limited range pnfree Side left Resistance AROM Reps/Minutes 8 reps each Comments cued stay within pnfree range, slow pacing (supine/seated/ stand) serratus press Supine Exercise Name trialed in PT only Side left Resistance AROM 1 press- therapist target punch to Equipment Used LUE single AROM 1 set and /c dowel 2 sets Reps/Minutes 5 reps x3 sets Comments support to get into FF 90 deg then painfree presses Standing Exercises ABD Standing Exercise Name added to HEP- painfree /c long axis ER Side left Resistance AROM Reps/Minutes 5 reps x2 set separate time time in tx Comments reports no pain full ROM 180 deg demonstrated standing TB adduction Standing Exercise Name added to HEP: con add, eccentri abd 45 deg max Side left Resistance TB #2 anchored at L shld height Reps/Minutes 5 reps Comments cued slow eccentric return up, painfree slow, cued scap retraction ER Standing Exercise Name added to HEP Side left Resistance AROM Reps/Minutes 2x5 reps Comments feels fine, cued slow ROM painfree AROM Shoulder AB Standing Exercise Name Supraspinatus/Deltoid: Chicken wing ex Side bilateral Reps/Minutes x3 reps- 3/1 hold til next tx reassess Comments ok 2 reps, then compensation shld elev/neck SB L c/o pain L shld Chest Press Standing Exercise Name Hold due to slight pain at 80 deg abd, unable L arm at side 0deg Side bilateral Equipment Used TB Lvl 3 Reps/Minutes 4 Comments causes alot pain close chain trial press fwd- HOLD 3/- reassess next tx Row Standing Exercise Name Theron & L side for scap retract/ elevation- [facility] reviewd Resistance LVL 3 Reps/Minutes x10 Comments ok pnfree- 3/ instructed continue Manual Therapy Treatment Soft Tissue Mobilization L shld Body Location long head bicep, distal pec, distal RTC Mobilization Type Rolling,Sustained Pressure, Other Intensity/Depth Moderate Body Position Supine Comments STMs and sustained pressure with PROM humeral IR/ ER, punching motions with gentle pressure and request feedback painfree. Joint Mobilizations L GH Jt Direction inferior and posterior glide Grade II Body Position Hooklying Comments gentle gentle ossilating motions painfree. Noted proximal L humerus more anterior than thought should be. Manual Techniques L shld PROM Type FF pain 0-45/45-160 pnfree, ABD <60 deg pnfree, Body Position Supine Comments Asked PT Asiya to assess safety positioning (primary PT Sarah unavailable), also thought more anterior than normally should be in GH Jt but humeral rotation motion normal movement doesn't believe subluxed but with pain and lack AROM FF against gravity and standing abd palm down now suggested have primary PT assess again. Suggested to stay away from painful movement at this time. Self-Care/Home Management Treatment Education Patient Education Home Exercise Program,Pain Management,Safety Other Education Reviewed self use CP L shld for pain control, usign at home. Ed discontinue raising L arm FF and punching motions close chain and abd against gravity due to pain. Added humeral ER AROM painfree range in all positions, ABD /c long axis humeral ER against gravity was fine/painfree to continue today. Resisted rows against same resistance fine. PT-OP-T Assessment and Plan Start: 08/11/23 19:41 Freq: Status: Active Protocol: Document 09/01/23 13:03 SP (Rec: 09/01/23 14:49 SP [id number]) Physical Therapy Assessment Goals Two Impairment Decreased L shoulder mobility, limited by pain rated 2/10 Short Term Goal (STG) Decrease L shoulder pain to 0- 1/10. STG Duration 4 wks-09/22/23 Accounts Payable Clerk Goal (LTG) Pt will improve L shoulder flexibility to be able to exercise (with weights) without fear of hurting L shoulder (understanding exercise limitations). LTG Duration 8 wks-10/20/23 One Impairment HEP Short Term Goal (STG) Pt will be educated in self care management techniques. 09/01/23: pt using CP for assisst pain control STG Duration 2 wks-09/08/23 updated 09/01/23 Longterm Goal (LTG) Pt will be independent on a self care HEP of L shoulder/L scapular stabilizer strengthening exercises with pt able to exercise without shoulder injury. 08/24/23: HEP: Scap retract, shoulder AB (supraspinatus/ deltoid), AD, Flex, Ext strengthening. 08/29/23: added side ER 1# DB 09/01/23: added humeral AROM IR/ ER standing, resisted add/ eccentric abd to 45 deg TB assist, ABD /c humeral ER against gravity painfree FROM during PT today, unable to perform chicken wing previously given due to pain distal RTC and ant L shld. LTG Duration 8 wks-10/20/23 updated 3/1/24 Assessment Summary Assessment Pt responded well to manual decrease bicep & deltoid & supraspinatus muscle tension. Pt had pain with trial AROM supine 0-60deg FF and punching motion con/ecc required Max assist to complete, AAROM self /c dowel 45-160 deg painfree. Shld IR/ER AROM painfree in all positions. Added standing resisted adduction with AAROM into 45 deg ABD to allow return reeducation this motion that was painfree during tx. Pt good verbalized understanding all activities in PT today painfree and allowable for HEP. Discontinue ROM that causes pain and utilize modalities for assist pain control. Physical Therapy Plan Frequency and Duration Frequency of Treatment 2x/Week Duration of treatment (weeks) 8 Plan of Care Start Date 08/22/23 Plan of Care End Date 10/20/23 Therapeutic Interventions Therapeutic Interventions Home Exercise Program,Manual Therapy,Self-Care/Home Management,Taping,Therapeutic Activities,Therapeutic Exercises Modalities Cold Pack/Ice Massage,Electric Stimulation,Hot Packs Next Visit Focus/Plan Next Note Type Treatment Note Next Visit Plan Recheck L GH Jt alignment, pain, AROM FF/abd/punching motion against gravity supine and standing tolerance since last tx. If not improved suggest further assessment by physician. POC. Next: Assess elbow & Cervical strength and if concerns, AROM. General aerobic ex (UBE), f/b L shoulder strengthening (ER; UT , Supraspinatus, adductors- TBand, pecs, Infraspinatus/ Teres Robby & Minor). Check for weakness of Lat Dorsi ( cautiously in case of inferior dislocation) and subscapularis. END: Modality to decrease pain if needed ( MH/EStim). ROM: Improve horiz AD ROM as tolerated. HEP: Strengthening ex's of weak muscles. When pt feels confident of HEP, DC to indep home program.
--- NOTE | 2023-09-05 11:40 | PT-OP ANOTE ---
Pt states he lost track of time, so forgot about his appt. States he can now raise his arm but is still painful. He reports having a phone appt with Dr. Jauregui (doctor was home sick), and was told MRI indicated he had irritated RC tendons and to continue PT. Pt advised to try to schedule with me the next visit, otherwise he can see ADR Mcdaniels but to schedule with me when he returns from trip 09/17/23. Notified pt of end of POC date 10/20/23.
--- NOTE | 2023-09-07 17:00 | PT.OTN ---
Current Diagnoses Unspecified rotator cuff tear or rupture of left shoulder, not specified as traumatic (09/07/23) Physical Therapy Treatment Note PT-OP-A Visit Information Start: 08/11/23 19:41 Freq: Status: Active Protocol: Document 09/07/23 13:03 LRN (Rec: 09/07/23 13:46 LRN [id number]) Out-Patient Physical Therapy Visit Information Visit Information Visit Type Treatment Note Visit Start Time 13:03 Visit Stop Time 13:43 Visit Number 5 Evaluation Information Evaluation Date 08/22/23 Precautions Precautions No lifing weights overhead. History of neck pain for past 10 yrs. PT-OP-B Current Condition Start: 08/11/23 19:41 Freq: Status: Active Protocol: Document 08/22/23 11:20 LRN (Rec: 08/22/23 12:04 LRN [id number]) Current Condition History of Current Condition Onset Date May 2023. Current Complaints L shoulder mild jt pain rated 2/10. History of Current Condition Dislocated L shoulder May 2023 while in [facility] (fell and tripped over escalator) and had MRI (showed no soft tissue injury). Did 2 PT sessions in [place] before returning home in July 2023. Saw Dr[address] Jauregui who gave him a cortisone injection (07/19/23) and gave referral for PT. He states his pain decreased considerably (from 7/10 to 2/ 10) after injection. Was told not to lift overhead by Nadine FLORES and Dr. Jauregui. Prior Treatments and Tests 2 PT visits while in [facility] and had MRI done. Cortisone injection 07/2023. Future Testing and Treatments Planned No further MD follow up visits . Treatment Goals Patient/Caregiver Goals Pt goal: Get more flexibility to be able to exercise (with weights) and strengthen the L shoulder to not injury the shoulder. Personal Factors Other Personal Factors That May Effect Theron RCT repair (R 10 yrs ago, Therapy/Recovery L one year ago). Carpel tunnel syndrome bilaterally (R more severe than L). Precaution: No lifting weights overhead. PT-OP-C Subjective Start: 08/11/23 19:41 Freq: Status: Active Protocol: Document 09/07/23 13:03 LRN (Rec: 09/07/23 13:46 LRN [id number]) OP-PT Subjective Patient Comments Patient Comments States he was pushing hard down on garbage lid and felt a sharp pain at top of shoulder (1 wk,2 days ago). Using cryotherapy at home for pain. States his L shoulder is starting to hurt more, possibly injection wearing off , next visit scheduled in October. Shoulder AB is with pain 3-10/10. PT-OP-E Functional Tests Start: 08/11/23 19:41 Freq: Status: Active Protocol: Document 08/22/23 11:20 LRN (Rec: 08/22/23 16:48 LRN [id number]) Functional Tests Apley's Scratch Test Action 1- Left Spine of scapula Action 1- Right Spine of scapula Action 2- Left Between T1-T2 Action 2- Right Between T2-T3 Action 3- Left T8 Action 3- Right T10 PT-OP-F Manual Assessment Start: 08/11/23 19:41 Freq: Status: Active Protocol: Document 08/22/23 11:20 LRN (Rec: 08/22/23 12:04 LRN [id number]) Manual Assessments Soft Tissue Assessment Soft Tissue Mobility Assessment Visible and palpable atrophy of Left: Pectoralis Minor & Major, Deltoids, UT, Supraspinatus, Infraspinatus, Teres Major & Teres Minor. Joint Mobility Assessment Joint Mobility Assessment Deferred, unknown direction of dislocation of L shoulder. PT-OP-J Posture/Palpation/Skin Start: 08/11/23 19:41 Freq: Status: Active Protocol: Document 08/22/23 11:20 LRN (Rec: 08/22/23 12:04 LRN [id number]) Posture Evaluation Position Standing Head/C-Spine Posture Forward Head Shoulder Posture (L) Forward Shoulder Subluxation Degree (L) 1 Finger wide Scapula Posture (L) Rotated Down,(L) Depressed Knee Posture (L) Genu Varus,(R) Genu Varus Palpation Assessment Location L shoulder Palpation Location Anterior and posterior acromion process Palpation Findings Spasm,Tenderness Palpation Details No other c/o pain at left shoulder. PT-OP-K Range of Motion Start: 08/11/23 19:41 Freq: Status: Active Protocol: Document 08/22/23 11:20 LRN (Rec: 08/22/23 12:04 LRN [id number]) Shoulder Goniometric Range of Motion Shoulder Right Active Shoulder ROM WFL Yes Testing Position Sitting Flexion 157 Extension 62 Abduction 180 Comments Functional reach distance: R Horz AD- below spine of scapula. Behind head- between T2-T3. Behind back: R T10 . Left Active Shoulder ROM WFL No Testing Position Sitting Flexion 157 Extension 58 Abduction 150 Comments Functional reach distances: L Horz AD - Spine of scapula. Behind head - between T1-T2. Behind back: L T8. PT-OP-L Special Tests Start: 08/11/23 19:41 Freq: Status: Active Protocol: Document 09/07/23 13:03 LRN (Rec: 09/07/23 16:47 LRN [id number]) Special Tests Shoulder Special Tests Elevation Impingement Test Results + L shoulder Clunk Test Test Results negative L shoulder PT-OP-M Strength Start: 08/11/23 19:41 Freq: Status: Active Protocol: Document 08/24/23 11:21 LRN (Rec: 08/24/23 12:25 LRN [id number]) Cervical Spine Strength Cervical Spine Manual Muscle Testing Comments Strength is 5/5 Elbow/Forearm Strength Elbow and Forearm Manual Muscle Testing Right Flexion (C6) 5 Normal Extension (C7) 5 Normal Left Flexion (C6) 5 Normal Extension (C7) 5 Normal PT-OP-Q Treatments Start: 08/11/23 19:41 Freq: Status: Active Protocol: Document 09/07/23 13:03 LRN (Rec: 09/07/23 13:46 LRN [id number]) Therapeutic Exercises Supine Exercises Shdr Flex Supine Exercise Name Shdr flex Side left Reps/Minutes 5' Comments Clunk Test and Impingement test noted lat pull down Supine Exercise Name Lat Pull Down ( manual resist) Side left Reps/Minutes 3' IR & ER Supine Exercise Name Shldr ER Side right Reps/Minutes 10x serratus press Supine Exercise Name Serratus punch Side left Equipment Used Manual resist Reps/Minutes 2 reps Comments Assist to 90 dg's FF, no c/o pain with press Sitting Exercises Scapular pinches Sitting Exercise Name Scapular pinches Side bilateral Reps/Minutes 3' Standing Exercises IR Standing Exercise Name Shoulder IR Side left Reps/Minutes 10x 3 ER Standing Exercise Name ER Side left Equipment Used L2 Reps/Minutes 3' Comments Extra time taken to find a max ivania position, not able. Held exer Manual Therapy Treatment Manual Techniques MVM L shdr Flex Type Fly tie motion and supine max flexion Body Location L Shdr Body Position Sitting Reps/Duration 9' Comments Pt needed much phys and v. cuing MWM L shdr AB Type MWM L shdr for short arm AB. Body Location L shdr Body Position Sitting Reps/Duration 10' Comments Pt needed much phys and v. cuing PT-OP-R Modalities Start: 08/11/23 19:41 Freq: Status: Active Protocol: Document 09/07/23 13:03 LRN (Rec: 09/07/23 16:45 LRN [id number]) Ultrasound Therapy Treatment L shoulder Patient Position Supine Coupling Medium Ultrasound Gel Applicator Size (cm2) 2 Frequency Setting (mHz) 3 Mode Setting Pulsed Duty Cycle 50% Intensity Setting (w/cm2) 1.0 PT-OP-T Assessment and Plan Start: 08/11/23 19:41 Freq: Status: Active Protocol: Document 09/07/23 13:03 LRN (Rec: 09/07/23 13:46 LRN [id number]) Physical Therapy Assessment Rehab Potential Rehabilitation Potential Good Evaluation Complexity Number of Personal Factors/Comorbidities 1-2 Number of Body Systems Impaired 3 Clinical Presentation at Evaluation Stable Impairments Impairments Pain,ROM,Strength Goals Two Impairment Decreased L shoulder mobility, limited by pain rated 2/10 Short Term Goal (STG) Decrease L shoulder pain to 0- 1/10. STG Duration 4 wks-09/22/23 Packager Hand Goal (LTG) Pt will improve L shoulder flexibility to be able to exercise (with weights) without fear of hurting L shoulder (understanding exercise limitations). LTG Duration 8 wks-10/20/23 One Impairment HEP Short Term Goal (STG) Pt will be educated in self care management techniques. 09/01/23: pt using CP for assisst pain control STG Duration 2 wks-09/08/23 updated 09/01/23 Packager Hand Goal (LTG) Pt will be independent on a self care HEP of L shoulder/L scapular stabilizer strengthening exercises with pt able to exercise without shoulder injury. 08/24/23: HEP: Scap retract, shoulder AB (supraspinatus/ deltoid), AD, Flex, Ext strengthening. 08/29/23: added side ER 1# DB 09/01/23: added humeral AROM IR/ ER standing, resisted add/ eccentric abd to 45 deg TB assist, ABD /c humeral ER against gravity painfree FROM during PT today, unable to perform chicken wing previously given due to pain distal RTC and ant L shld. LTG Duration 8 wks-10/20/23 updated 09/01/23 Assessment Summary Assessment 78 yo male who is s/p L shoulder dislocation (05/25), cortisone injection 07/19/23 and lingering diffuse joint pain. Pt is limited in tolerace to Lat Dorsi & Lower trap resistive ex. and appears to have inflammation at humeral head attachement. Physical Therapy Plan Frequency and Duration Frequency of Treatment 2x/Week Duration of treatment (weeks) 8 Plan of Care Start Date 08/22/23 Plan of Care End Date 10/20/23 Therapeutic Interventions Therapeutic Interventions Home Exercise Program,Manual Therapy,Self-Care/Home Management,Taping,Therapeutic Activities,Therapeutic Exercises Modalities Cold Pack/Ice Massage,Electric Stimulation,Hot Packs Next Visit Focus/Plan Next Note Type Treatment Note Next Visit Plan Recheck L GH Jt alignment, pain, AROM FF/abd/punching motion against gravity supine and standing tolerance since last tx. If not improved suggest further assessment by physician. POC. Next: Assess L elbow & Cervical strength and if concerns, AROM. Focus on L scapular stab. General aerobic ex (UBE), f/b L shoulder strengthening (ER; UT, Supraspinatus, adductors- TBand, pecs, Infraspinatus/ Teres Robby & Minor). Check for weakness of Lat Dorsi ( cautiously in case of inferior dislocation) and subscapularis. END: Modality to decrease pain if needed ( MH/EStim). ROM: Improve horiz AD ROM as tolerated. HEP: Strengthening ex's of weak muscles. When pt feels confident of HEP, DC to indep home program.
--- NOTE | 2023-09-19 13:39 | PT.OTN ---
Current Diagnoses Unspecified rotator cuff tear or rupture of left shoulder, not specified as traumatic (09/19/23) Physical Therapy Treatment Note PT-OP-A Visit Information Start: 08/11/23 19:41 Freq: Status: Active Protocol: Document 09/19/23 11:18 LRN (Rec: 09/19/23 12:07 LRN [id number]) Out-Patient Physical Therapy Visit Information Visit Information Visit Type Treatment Note Visit Start Time 11:18 Visit Stop Time 12:00 Visit Number 6 PT-OP-B Current Condition Start: 08/11/23 19:41 Freq: Status: Active Protocol: Document 08/22/23 11:20 LRN (Rec: 08/22/23 12:04 LRN [id number]) Current Condition History of Current Condition Onset Date May 2023. Current Complaints L shoulder mild jt pain rated 2/10. History of Current Condition Dislocated L shoulder May 2023 while in [facility] (fell and tripped over escalator) and had MRI (showed no soft tissue injury). Did 2 PT sessions in [place] before returning home in July 2023. Saw Dr. Jauregui who gave him a cortisone injection (07/19/23) and gave referral for PT. He states his pain decreased considerably (from 7/10 to 2/ 10) after injection. Was told not to lift overhead by Nadine FLORES and Dr. Jauregui. Prior Treatments and Tests 2 PT visits while in [facility] and had MRI done. Cortisone injection 07/2023. Future Testing and Treatments Planned No further MD follow up visits . Treatment Goals Patient/Caregiver Goals Pt goal: Get more flexibility to be able to exercise (with weights) and strengthen the L shoulder to not injury the shoulder. Personal Factors Other Personal Factors That May Effect Theron RCT repair (R 10 yrs ago, Therapy/Recovery L one year ago). Carpel tunnel syndrome bilaterally (R more severe than L). Precaution: No lifting weights overhead. PT-OP-C Subjective Start: 08/11/23 19:41 Freq: Status: Active Protocol: Document 09/19/23 11:18 LRN (Rec: 09/19/23 12:07 LRN [id number]) OP-PT Subjective Patient Comments Patient Comments States he is better than he was before. States he is working out at home and doing LE gym workouts. States he can't lift his L arm upward, forward, or lift arm above shoulder height. Has appt with Dr. Jauregui next monday ( 6 days). Patient Questionnaires Quick Dash- Upper Extremity Quick Dash UE Score 31.81 Quick Dash UE Impairment 20 to 39% Impaired (Score 20- 39) OP-PT Pain Assessment Pain Assessment Grid Paper Pain Assessment Grid Completed Yes Location L shoulder Pain Location Details Posterior acromion process Intensity 8 Scale Used Numeric (0 - 10) Description Sharp PT-OP-E Functional Tests Start: 08/11/23 19:41 Freq: Status: Active Protocol: Document 08/22/23 11:20 LRN (Rec: 08/22/23 16:48 LRN [id number]) Functional Tests Apley's Scratch Test Action 1- Left Spine of scapula Action 1- Right Spine of scapula Action 2- Left Between T1-T2 Action 2- Right Between T2-T3 Action 3- Left T8 Action 3- Right T10 PT-OP-F Manual Assessment Start: 08/11/23 19:41 Freq: Status: Active Protocol: Document 08/22/23 11:20 LRN (Rec: 08/22/23 12:04 LRN [id number]) Manual Assessments Soft Tissue Assessment Soft Tissue Mobility Assessment Visible and palpable atrophy of Left: Pectoralis Minor & Major, Deltoids, UT, Supraspinatus, Infraspinatus, Teres Major & Teres Minor. Joint Mobility Assessment Joint Mobility Assessment Deferred, unknown direction of dislocation of L shoulder. PT-OP-J Posture/Palpation/Skin Start: 08/11/23 19:41 Freq: Status: Active Protocol: Document 08/22/23 11:20 LRN (Rec: 08/22/23 12:04 LRN [id number]) Posture Evaluation Position Standing Head/C-Spine Posture Forward Head Shoulder Posture (L) Forward Shoulder Subluxation Degree (L) 1 Finger wide Scapula Posture (L) Rotated Down,(L) Depressed Knee Posture (L) Genu Varus,(R) Genu Varus Palpation Assessment Location L shoulder Palpation Location Anterior and posterior acromion process Palpation Findings Spasm,Tenderness Palpation Details No other c/o pain at left shoulder. PT-OP-K Range of Motion Start: 08/11/23 19:41 Freq: Status: Active Protocol: Document 08/22/23 11:20 LRN (Rec: 08/22/23 12:04 LRN [id number]) Shoulder Goniometric Range of Motion Shoulder Right Active Shoulder ROM WFL Yes Testing Position Sitting Flexion 157 Extension 62 Abduction 180 Comments Functional reach distance: R Horz AD- below spine of scapula. Behind head- between T2-T3. Behind back: R T10 . Left Active Shoulder ROM WFL No Testing Position Sitting Flexion 157 Extension 58 Abduction 150 Comments Functional reach distances: L Horz AD - Spine of scapula. Behind head - between T1-T2. Behind back: L T8. PT-OP-L Special Tests Start: 08/11/23 19:41 Freq: Status: Active Protocol: Document 09/07/23 13:03 LRN (Rec: 09/07/23 16:47 LRN [id number]) Special Tests Shoulder Special Tests Elevation Impingement Test Results + L shoulder Clunk Test Test Results negative L shoulder PT-OP-M Strength Start: 08/11/23 19:41 Freq: Status: Active Protocol: Document 08/24/23 11:21 LRN (Rec: 08/24/23 12:25 LRN [id number]) Cervical Spine Strength Cervical Spine Manual Muscle Testing Comments Strength is 5/5 Elbow/Forearm Strength Elbow and Forearm Manual Muscle Testing Right Flexion (C6) 5 Normal Extension (C7) 5 Normal Left Flexion (C6) 5 Normal Extension (C7) 5 Normal PT-OP-Q Treatments Start: 08/11/23 19:41 Freq: Status: Active Protocol: Document 09/19/23 11:18 LRN (Rec: 09/19/23 12:07 LRN [id number]) Therapeutic Exercises Supine Exercises IR & ER Supine Exercise Name Shldr IR/ER Side left Reps/Minutes 10x serratus press Supine Exercise Name Serratus punch with asst to get into position to start Side left Reps/Minutes 10x Comments Assist to 90 dg's FF, no c/o pain with press Sidelying Exercises ER Sidelying Exercise Name Shouder ER Side left Reps/Minutes 3x Comments Stopped due to posterior acromion pain. ABD Sidelying Exercise Name AB 0-30 deg's Side left Reps/Minutes 15x Sitting Exercises Scapular pinches Sitting Exercise Name Scapular pinches Side bilateral Reps/Minutes 3' Standing Exercises IR Standing Exercise Name Shoulder IR Side left Reps/Minutes 10x 3 TB adduction Standing Exercise Name added to HEP: con add, eccentri abd 45 deg max Side left Resistance TB #2 anchored at L shld height Reps/Minutes 4' Comments cued slow eccentric return up, painfree slow, cued scap retraction ER Standing Exercise Name ER Side left Equipment Used L2 Reps/Minutes 3' Comments Extra time taken to find a max ivania position, not able. Held exer Shoulder AB Standing Exercise Name Shdr AB with Cuing for scap depression/retraction Side left Reps/Minutes 15x Chest Press Standing Exercise Name Forward reach w/asst from TB Side left Equipment Used TB L2 Reps/Minutes 3' Comments No pain with asst of TB. Row Standing Exercise Name Theron & L side for scap retract/ elevation- HEP reviewd Resistance LVL 3 Reps/Minutes 30x Comments ok pnfree- 3 instructed continue Bicep curls Standing Exercise Name Elbow curl Equipment Used 3#, 5#, trial 10# Reps/Minutes 15x, 15x, 1x respectively. Other Exercises Po Other Exercise Name Assisted Shoulder flex Side left Reps/Minutes 5' Self-Care/Home Management Treatment Education Patient Education Home Exercise Program,Pain Management Other Education Discussed & reviewed with pt use of cryotherapy or heat for pain management. Recommended pt use cryotherapy for pain. Activities Self-Care/Home Management Activities Reviewed self care HEP. PT-OP-R Modalities Start: 08/11/23 19:41 Freq: Status: Active Protocol: Document 09/07/23 13:03 LRN (Rec: 09/07/23 16:45 LRN [id number]) Ultrasound Therapy Treatment L shoulder Patient Position Supine Coupling Medium Ultrasound Gel Applicator Size (cm2) 2 Frequency Setting (mHz) 3 Mode Setting Pulsed Duty Cycle 50% Intensity Setting (w/cm2) 1.0 PT-OP-T Assessment and Plan Start: 08/11/23 19:41 Freq: Status: Active Protocol: Document 09/19/23 11:18 LRN (Rec: 09/19/23 12:07 LRN [id number]) Physical Therapy Assessment Goals Two Impairment Decreased L shoulder mobility, limited by pain rated 2/10 Short Term Goal (STG) Decrease L shoulder pain to 0- 1/10. 09/19/23: Pain with movement iws 8/10, pain at rest is 5/10 . STG Duration 4 wks-09/22/23 (09/19/23: NOT MET GOAL) Conference Concierge Goal (LTG) Pt will improve L shoulder flexibility to be able to exercise (with weights) without fear of hurting L shoulder (understanding exercise limitations). 09/19/23: Pain with exercise with less weight than previously LTG Duration 8 wks-10/20/23 (09/19/23: NOT MET GOAL) One Impairment HEP Short Term Goal (STG) Pt will be educated in self care management techniques. 09/01/23: pt using CP for assisst pain control 09/19/23: Reviewed w/pt pain management techniques of ice & heat for pain. STG Duration 2 wks-09/08/23 (09/19/23: MET GOAL) Group Home Goal (LTG) Pt will be independent on a self care HEP of L shoulder/L scapular stabilizer strengthening exercises with pt able to exercise without shoulder injury. 08/24/23: HEP: Scap retract, shoulder AB (supraspinatus/ deltoid), AD, Flex, Ext strengthening. 08/29/23: added side ER 1# DB 09/01/23: added humeral AROM IR/ ER standing, resisted add/ eccentric abd to 45 deg TB assist, ABD /c humeral ER against gravity painfree FROM during PT today, unable to perform chicken wing previously given due to pain distal RTC and ant L shld. 09/19/23: Reviewed pt tolerable HEP. LTG Duration 8 wks-10/20/23 (09/19/23: MET GOAL for tolerable ex's) Assessment Summary Assessment Pt is a 78 yo male who is s/p L shoulder dislocation (05/25) , cortisone injection 07/19/23 and being seen for lingering diffuse joint pain. The pt had an incident on 08/30/23 when he was pushing down hard on a garbage can lid causing L anterior/deltoid shld pain. The pt has not been able to reach forward or lift his L arm overhead without pain. The pt's condition has worsened since that time and is tolerating less strengthening exercises with movement and resistence. The pt is being sent back to his referring physician for further assessment and medical care. Pt goals were not met due to worsening L shoulder mobility and pain. Physical Therapy Plan Discharge Physical Therapy Discharge Reasons Change in Medical Status Discharge Comments Pt condition has been worsening since 08/30/23 and is being referred back to referring physician for follow up care.
== END 2023-09-25 10:07 | disposition home or self-care (01) ==
LOC: PHYS 11:15
PROVIDERS: Family Provider Family Medicine; PCP Family Medicine; Referring Provider Orthopaedic Surgery; Visit Provider Orthopaedic Surgery
DX: M75.102 Unspecified rotator cuff tear or rupture of left shoulder, not specified as traumatic (principal)
CPT/HCPCS: 97035; 97110; 97140; 97161; 97535

== ENCOUNTER → 2023-09-30 10:36 | Outpatient (CLI) | payer MEDICARE, OTHER, SELFPAY ==
--- NOTE | 2023-09-30 11:22 | DI.MRI.S_ITS ---
PROCEDURE: MR SHOULDER LT WO CON INDICATIONS: Impingement syndrome of left shoulder TECHNIQUE: Noncontrast oblique coronal T2 fast spin echo with fat saturation, oblique sagittal T1 spin echo and T2 fast spin echo with fat saturation, axial T1 spin echo and T2 fast spin echo with fat saturation through the shoulder. COMPARISON: [facility] [place], CR, XR SHOULDER 2+ VIEWS LEFT, 07/19/2023, 13:08. [facility], MR, MR SHOULDER LEFT WITHOUT CONTRAST, 05/22/2023, 16:00. [facility], MR, MR SHOULDER LT WO CON, 01/23/2018, 7:04. FINDINGS: Image quality: Excellent. Rotator cuff: There are postsurgical changes or rotator cuff tendon repair. There is at least high-grade partial-thickness of the supraspinatus tendon. There is likely full-thickness tear of the distal supraspinatus tendon at the humeral attachment. There is mild supraspinatus muscle atrophy. Moderate infraspinatus and subscapularis tendinosis. There is low-grade tear of the infraspinatus and subscapularis tendons. No high-grade tendon tear or muscle atrophy. Bones and bursae: No bone marrow contusions or fractures. Moderate acromioclavicular and glenohumeral joint degeneration. The acromion demonstrates conventional anatomy, without an os acromiale. Small glenohumeral joint effusion. Capsule and soft tissues: There is diffuse degenerative labral fraying. There is mild tendinosis of the long head of the biceps tendon which demonstrates normal location and morphology. The rotator interval appears normal, without fibrosis. The coracohumeral ligament is normal in thickness. IMPRESSION: 1. Postsurgical changes related to rotator cuff tendon repair. There is at least high-grade partial thickness tear of the supraspinatus tendon. Suspect full thickness tear at the humeral attachment. Mild supraspinatus muscle atrophy. 2. Moderate tendinosis of the infraspinatus and subscapularis tendons. No high-grade tendon tear. 3. Mild tendinosis of the long head of the biceps. 4 Moderate acromioclavicular and glenohumeral joint degeneration. 5. Small glenohumeral joint effusion. Dictated by: Jennifer King M.D. on 10/02/2023 at 9:02 Approved by: Jennifer King M.D. on 10/02/2023 at 12:41
== END ==
PROVIDERS: Family Provider Family Medicine; PCP Family Medicine; Referring Provider Orthopaedic Surgery; Visit Provider Orthopaedic Surgery
DX: M75.112 Incomplete rotator cuff tear or rupture of left shoulder, not specified as traumatic (principal); M75.42 Impingement syndrome of left shoulder; M19.012 Primary osteoarthritis, left shoulder; M25.412 Effusion, left shoulder
CPT/HCPCS: 73221

== ENCOUNTER 2024-01-09 17:14 | Emergency (ER) | payer MEDICARE, OTHER, SELFPAY ==
[2024-01-09 17:20] VITALS: BP 131/74; PULSE 78; RESP 16; TEMP 37.1; O2SAT 97; BMI 26.6
--- NOTE | 2024-01-09 19:26 | ED_ITS ---
HPI - Wound/Laceration <Marcela Alvarez PA-C - Last Filed: 01/16/24 14:18> General Chief Complaint: Wound/Laceration Stated Complaint: Fell on a rock mutliple lacerations, no bld thnrs Time Seen by Provider: 01/09/24 17:44 Source: patient Mode of arrival: Ambulatory History of Present Illness HPI narrative: 78-year-old male presents to the ED status post a mechanical trip and fall on rocks/barnacles. No head strike or loss of consciousness. Not on blood thinners. Patient sustained multiple abrasions on bilateral arms, knees. There is a laceration to the left hand. Tetanus up-to-date. No numbness, tingling, weakness. Related Data Home Medications Medication Instructions Recorded Confirmed atorvastatin 40 mg tablet 40 tab PO DAILY 01/10/22 01/20/24 citalopram 40 mg tablet 40 tab PO DAILY 01/10/22 01/20/24 vit C 250 mg-vit E 90 mg-zinc 40 1 tab PO DAILY 01/10/22 01/20/24 mg-copper 1 [id number] capsule (PreserVision AREDS-2) gabapentin 100 mg capsule mg PO 01/20/24 01/20/24 trazodone 100 mg tablet 100 mg PO ONCE PM 01/20/24 01/20/24 Previous Rx's Medication Instructions Recorded mupirocin 2 % topical ointment 1 applic topical TID #50 grams 01/09/24 Allergies Allergy/AdvReac Type Severity Reaction Status Date / Time No Known Drug Allergies Allergy Verified 01/20/24 10:17 Review of Systems <Marcela Alvarez PA-C - Last Filed: 01/16/24 14:18> Constitutional Constitutional: Denies chills, Denies fatigue, Denies fever(s), Denies frequent falls, Denies lethargy and Denies weakness Eyes Eyes: Denies change in vision, Denies eye discharge, Denies irritation and Denies loss of vision ENT Ears, Nose, Mouth, and Throat: Denies change in voice, Denies dizziness, Denies neck pain, Denies sore throat and Denies throat swelling Cardiovascular Cardiovascular: Denies chest pain, Denies irregular heart rhythm, Denies lightheadedness, Denies palpitations, Denies dyspnea, Denies dyspnea on exertion and Denies orthopnea Respiratory Respiratory: Denies cough, Denies dyspnea, Denies dyspnea on exertion and Denies wheezing Gastrointestinal Gastrointestinal: Denies abdominal pain, Denies change in bowel habits, Denies diarrhea, Denies nausea and Denies vomiting Musculoskeletal Musculoskeletal: Denies neck pain and Denies numbness Integumentary/Breasts Skin/Breast: Denies pruritus, Denies erythema, Denies rash and Denies wounds Comments: Laceration on left palm. Multiple abrasions on bilateral arms and legs. Neurologic Neurologic: Denies behavioral changes, Denies confusion, Denies dizziness, Denies frequent falls, Denies loss of vision, Denies numbness and Denies weakness Psychiatric Psychiatric: Denies anxiety, Denies behavioral changes, Denies confusion, Denies depression, Denies homicidal ideation and Denies suicidal ideation Endocrine Endocrine: Denies fatigue, Denies flushing and Denies palpitations Hematologic/Lymphatic Hematologic/Lymphatic: Denies easy bruising Allergic/Immunologic Allergic/Immunologic: Denies urticaria, Denies throat swelling and Denies wheezing Patient History <Marcela Alvarez PA-C - Last Filed: 01/16/24 14:18> Medical History Rotator cuff tear, left Social History household members: spouse Smoking Status: Former smoker Smoking Status: Former smoker alcohol intake frequency: a few times a week Substance Use Type: does not use Exam <Marcela Alvarez PA-C - Last Filed: 01/16/24 14:18> Narrative Exam Narrative: Const General:?cooperative, healthy appearing and comfortable [facility] Head:?normal to inspection Ears:?hearing grossly normal bilaterally Nose:?external nose normal Face and sinus:?normal facial exam and sinuses nontender Mouth:?oral mucosae normal Throat:?posterior oropharynx normal Eyes General:?appearance normal, both eyes and all related structures Neck Neck:?normal visual inspection and no lymphadenopathy noted Resp Effort & Inspection:?normal respiratory effort Auscultation:?clear to auscultation bilaterally Cardio Rate:?regular rate Rhythm:?regular rhythm Integumentary There is a laceration to the left palm. Bleeding controlled with pressure. Multiple abrasions on bilateral arms and knees. Neuro General:?patient alert, patient awake and patient oriented x3 Initial Vital Signs Initial Vital Signs: Vital Signs Temperature 98.7 F 01/09/24 17:20 Pulse Rate 78 01/09/24 17:20 Respiratory Rate 16 01/09/24 17:20 Blood Pressure 131/74 01/09/24 17:20 Pulse Oximetry 97 01/09/24 17:20 Oxygen Delivery Method Room Air 01/09/24 17:20 <Keyur Chavez MD - Last Filed: 01/24/24 07:37> Initial Vital Signs Initial Vital Signs: Vital Signs Temperature 98.7 F 01/09/24 17:20 Pulse Rate 78 01/09/24 17:20 Respiratory Rate 16 01/09/24 17:20 Blood Pressure 131/74 01/09/24 17:20 Pulse Oximetry 97 01/09/24 17:20 Oxygen Delivery Method Room Air 01/09/24 17:20 Procedures <Marcela Alvarez PA-C - Last Filed: 01/16/24 14:18> Laceration Repair Laceration 1: Site: hand Side (If applicable): left Description: irregular Depth: simple, single layer Local Anesthetic: lidocaine 1% Amount of anesthesia used (mL): 2 Pre-repair: wound explored, irrigated extensively and deep structures intact Skin layer closed with: nylon Skin layer suture size: 5-0 Number of sutures: 6 Technique: simple, interrupted Course <Marcela Alvarez PA-C - Last Filed: 01/16/24 14:18> Orders Ordered: Discontinued Medications Bacitracin (Bacitracin Oint 0.9 Gm Pckt) 1 applic TOP NOW ONE Stop: 01/09/24 18:40 Lidocaine HCl (Lidocaine 1% (Pf) 5 Ml) 5 ml INJ NOW ONE Stop: 01/09/24 17:59 Vital Signs Vital signs: Vital Signs - 8 hr 01/09/24 17:20 Temperature 98.7 F Pulse Rate 78 Respiratory Rate 16 Blood Pressure 131/74 Pulse Oximetry 97 Oxygen Delivery Method Room Air <Keyur Chavez MD - Last Filed: 01/24/24 07:37> Orders Ordered: Discontinued Medications Bacitracin (Bacitracin Oint 0.9 Gm Pckt) 1 applic TOP NOW ONE Stop: 01/09/24 18:40 Lidocaine HCl (Lidocaine 1% (Pf) 5 Ml) 5 ml INJ NOW ONE Stop: 01/09/24 17:59 Vital Signs Vital signs: Vital Signs - 8 hr 01/09/24 17:20 Temperature 98.7 F Pulse Rate 78 Respiratory Rate 16 Blood Pressure 131/74 Pulse Oximetry 97 Oxygen Delivery Method Room Air MDM - Wound/Laceration <Marcela Alvarez PA-C - Last Filed: 01/16/24 14:18> MDM Narrative Medical decision making narrative: 78-year-old male presents to the ED status post a mechanical trip and fall on rocks/barnacles. Laceration on left palm was repaired with 6 sutures. Signs of infection, suture removal, wound care discussed with patient and patient's son. Prophylactic antibiotics prescribed. ED return precautions discussed with patient. Patient verbalized understanding. Medical records reviewed: Yes Discharge Plan Departure Patient Disposition: Home Clinical Impression: Laceration Instructions: DI for Laceration Repair Activity Restrictions/Additional Instructions: You were evaluated in the ED today for some skin injuries. The laceration on your left palm was repaired with 6 sutures. The sutures will need to come out in 7-10 days. You may go to your PCP or a walk-in clinic or return to the ED for suture removal. Please watch for signs of infection including worsening redness, swelling, pain, warmth, discharge. You are being prescribed some antibiotics as a prophylactic measure. You were also being prescribed a topical antibiotic ointment that you can use on the wounds. Return to the ED if you have worsening symptoms. Prescriptions: New mupirocin 2 % ointment 1 applic topical TID Qty: 50 0RF No Action gabapentin 100 mg capsule PO trazodone 100 mg tablet 100 mg PO ONCE PM atorvastatin 40 mg tablet 40 tab PO DAILY Patient Comments: TAKE 1 TABLET BY MOUTH ONCE A DAY citalopram 40 mg tablet 40 tab PO DAILY Patient Comments: take 1 tablet by mouth once daily PreserVision AREDS-2 250-90-40-1 mg Capsule 1 tab PO DAILY Referrals: Patrick Dover MD [Primary Care Provider] - Stand Alone Forms: Patient Portal/API ED Sign-out <Keyur Chavez MD - Last Filed: 01/24/24 07:37> Cosign ED Attending Huseyinature Attestation: I was immediately available in the department for consultation. ?This documen tation has been reviewed and I agree with assessment and plan. Supervised by Keyur Chavez MD
== END 2024-01-09 19:25 | disposition home or self-care (01) ==
PROVIDERS: Emergency Provider Student in an Organized Health Care Education/Training Program; Family Provider Family Medicine; PCP Family Medicine
DX: S61.412A Laceration without foreign body of left hand, initial encounter (principal); W20.8XXA Other cause of strike by thrown, projected or falling object, initial encounter
CPT/HCPCS: 12001; 99282; 99283

== ENCOUNTER → 2024-01-20 10:33 | Outpatient (CLI) | payer MEDICARE, OTHER, SELFPAY | PROVIDERS: Family Provider Family Medicine; PCP Family Medicine; Visit Provider Physician Assistant | DX: T14.8XXA Other injury of unspecified body region, initial encounter (principal); L08.9 Local infection of the skin and subcutaneous tissue, unspecified | CPT/HCPCS: 87070; 87075; 87205 ==

== ENCOUNTER → 2024-03-12 11:37 | Outpatient (CLI) | payer MEDICARE, OTHER, SELFPAY ==
--- NOTE | 2024-03-12 12:20 | EKG_ITS ---
[address] [address] Test Date: 2024-03-12 Pat Name: Brian Bradley Department: [facility] Room: Gender: Male Ultrasonic Tester: [id number] : 1945 Requested By: Order Number: [id number] Reading MD: Gerardo Sofia Measurements Intervals Candor Rate: 57 P: 41 MS: 156 QRS: -16 QRSD: 86 T: 55 QT: 422 QTc: 410 Interpretive Statements Sinus bradycardia Electronically Signed On 03-12-2024 12:54:12 PDT by Gerardo Sofia
[2024-03-12 12:49] LABS: Add Manual Diff / Slide Review NO; Basophils Absolute Auto 100 /uL (0-100); Basophils Percent Auto 1.2 % (0-2); Eosinophils Absolute Auto 200 /uL (0-450); Eosinophils Percent Auto 4.2 % (2-4); Hemoglobin 13.1 g/dL (13.5-17.5); Lymphocytes Absolute Auto 1500 /uL (1100-4500); Lymphocytes Percent Auto 29.3 % (25-40); Mean Corpuscular HGB Conc 33.6 % (30-36); Mean Corpuscular Hemoglobin 30.6 PG (26-34); Monocytes Absolute Auto 500 /uL (0-900); Monocytes Percent Auto 9.2 % (3-14); Neutrophils Absolute Auto 2800 /uL (1500-7000); Neutrophils Percent Auto 56.1 % (50-75); Platelet Count 227 X10^3/uL (150-400); Red Blood Cell Count 4.29 X10^6/uL (4.5-5.9); Red Cell Distribution Width 13.1 % (11.6-14.8)
[2024-03-12 13:10] LABS: BUN Creatinine Ratio 15.8 (6-22); Blood Urea Nitrogen 15 mg/dL (9-20); Calcium 9.6 mg/dL (8.4-10.2); Carbon Dioxide 26 mmol/L (22-32); Chloride 103 mmol/L (98-107); Estimated Glomerular Filt Rate > 60 mL/min (>60); Glucose 100 mg/dL (80-110); HEMOLYSIS < 15 (0-50); Potassium 4.3 mmol/L (3.4-5.1); Sodium 135 mmol/L (137-145)
[2024-03-12 13:20] LABS: Appearance Urine UA CLEAR; Bilirubin Urine UA NEGATIVE (NEGATIVE); Color Urine UA YELLOW; Glucose Urine UA NEGATIVE (Negative); Ketones Urine UA NEGATIVE (NEGATIVE); Leukocyte Esterase Urine UA NEGATIVE (NEGATIVE); Nitrite Urine UA NEGATIVE (Negative); Occult Blood Urine UA NEGATIVE (Negative); Protein Urine UA NEGATIVE (Negative); Urobilinogen Urine UA 0.2 E.U./dL (0.2); pH Urine UA 6.5 (4.5-8.0)
[2024-03-12 13:44] LABS: Bacteria Urine None Seen; Culture Indicated Urine Cult Not Indicated; RBC Urine 0-1/HPF (0-5/HPF); Squamous Epithelial Cell Urine None Seen (0-5/HPF); Urine Volume 10mL (spun); WBC Urine 0-1/HPF (0-5/HPF)
[2024-03-12 14:19] LABS: Hemoglobin A1C% w Est Avg Glu 5.2 % (4.0-6.0)
== END ==
PROVIDERS: Family Provider Family Medicine; PCP Family Medicine; Referring Provider Orthopaedic Surgery; Visit Provider Orthopaedic Surgery
DX: Z01.818 Encounter for other preprocedural examination (principal); R73.9 Hyperglycemia, unspecified; Z01.812 Encounter for preprocedural laboratory examination; N39.0 Urinary tract infection, site not specified
CPT/HCPCS: 36415; 80048; 81001; 83036; 85025; 93005